=== PATIENT | female | born 1945 | race Caucasian/White ===

== ENCOUNTER 2017-09-13 23:36 | Emergency (ER) | payer MEDICARE, OTHER ==
[~2017-09-13] VITALS: Ht 157.5 cm; Wt 70.3 kg
--- OUTSIDE RECORDS SUMMARY | ~2017-09-13 | XMS | Clinical Summary ---
Demographics + + + | Address | [address] | | | [place] [address] | + + + | Home Phone | | + + + | Preferred Language | Unknown | + + + | Marital Status | Single | + + + | Christian Affiliation | NON | + + + | Race | White | + + + | Ethnic Group | Not or | + + + Author + + + | Author | NON REVENUE LOCATIONS | + + + | Organization | NON REVENUE LOCATIONS | + + + | Address | Unknown | + + + | Phone | Unavailable | + + + Support +------+ +---------+ + | Name | Relationship | Address | Phone | +------+ +---------+ + ECON | Unknown | | +------+ +---------+ + Care Team Providers + +------+ + | Care Economics Consultant Name | Role | Phone | + +------+ + PP | Unavailable | + +------+ + Source Comments JC is fully live on both [facility] and [facility] Allergies Not on File Current Medications Not on file Active Problems Not on file Social History + +-------+ +--------+------+ | Tobacco Use | Types | Packs/Day | Years | Date | | | | | Used | | + +-------+ +--------+------+ | Never Assessed | | | | | + +-------+ +--------+------+ + + + | Sex Assigned at | Date Recorded | | | | + + + | Not on file | | + + + Plan of Treatment + + + + + | Health Maintenance | Due Date | Last Done | Comments | + + + + + | INFLUENZA VACCINE | | | | | (FLU SHOT) | 7 | | | + + + + + Results Not on filefrom Last 3 Months"
--- OUTSIDE RECORDS SUMMARY | ~2017-09-13 | XMS | Clinical Summary ---
Demographics + + + | Address | [address] | | | [place] [address] | + + + | Home Phone | | + + + | Preferred Language | Unknown | + + + | Marital Status | Single | + + + | Scientologist Affiliation | NON | + + + [...] Team Providers + +------+ + | Care Sat Math Tutor Name | Role | Phone | + +------+ + PP | Unavailable | + +------+ + Source Comments JC is fully live on both [facility] and [facility] InPatient.[facility] Allergies Not on File Current [...]
[~2017-09-13 23:36] MED LIST: ADVAIR 500-501 EACH IH; AMBIEN5 MG PO; CARDIZEM LA240 MG PO; CYCLOBENZAPRINE10 MG PO; DAPSONE25 MG PO; LEVOXYL125 MCG PO; MONTELUKAST SOD10 MG PO; NEXIUM20 MG PO; NORCO 5-325 TA1 EACH PO; REGLAN10 MG PO
[2017-09-13] MEDS ORDERED: QVAR8.7 G1 (23:44)
[2017-09-14] MEDS ORDERED: FAMCICLOVIR500 MG PO (01:18)
[2017-09-14] MEDS ORDERED: NORCO 5-325 TA1 EACH PO (01:18)
== END 2017-09-14 01:47 | disposition home or self-care (01) ==
LOC: ED 23:36
DX: B02.9 Zoster without complications (principal); E03.9 Hypothyroidism, unspecified; Z98.890 Other specified postprocedural states; Z88.2 Allergy status to sulfonamides; Z88.6 Allergy status to analgesic agent; Z79.899 Other long term (current) drug therapy
CPT/HCPCS: 99283

== ENCOUNTER 2021-05-10 12:50 | Day surgery (SDC) | payer MEDICARE, OTHER ==
[~2021-05-10] VITALS: Ht 154.9 cm; Wt 67.3 kg
--- NOTE | ~2021-05-10 | OR ---
[facility] [address] [place], [place] [address] Draft DATE OF OPERATION: 05/10/2021 SURGEON: Opal Keller MD PREOPERATIVE DIAGNOSES: 1. 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 Cui in [place], [place]). 2. Self described gluten sensitivity. 3. History of Schatzki's ring and hiatal hernia. POSTOPERATIVE DIAGNOSES: 1. Minimal if any Hylton's esophagus; shallow Schatzki's ring and hiatal hernia. 2. Multiple gastric polyps. PROCEDURE: Esophagogastroduodenoscopy with biopsy. ANESTHESIA: Intravenous sedation, fentanyl 100 mcg and Versed 3 mg. 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 Rom Argueta in [place]. She underwent upper endoscopy by Dr. Cui in 2018, at which time she was said to have Hylton's esophagus and a small Schatzki's ring and multiple gastric polyps. She is referred for surveillance regarding the Hylton's esophagus. She is currently having no dysphagia, hematemesis or other symptoms related to the GI tract. She is on esomeprazole (Nexium) and symptoms are well controlled. She understands the risks of bleeding, infection, perforation related to upper endoscopy and wished to proceed. FINDINGS: Distal esophagus showed minimal if any Hylton's esophagus. There was a low-grade Schatzki's ring. There definitely was a hiatal hernia. She had multiple fundic gland type polyps. Duodenum appeared normal. CLOtest was negative 15 minutes post procedure. PROCEDURE IN DETAIL: The patient was brought to the endoscopy suite and given topical lidocaine hypopharyngeal anesthesia and placed in lateral decubitus position left side down. She was given intravenous sedation to the point of slurred speech and nystagmus with full cardiopulmonary monitoring. PATIENT NAME: MARIA DOLORES ROMANO OPERATIVE REPORT DATE OF : 47 REPORT #: [id number] PHYSICIAN: OPAL KELLER MD PCP: ROM ARGUETA MD REPORT IS CONFIDENTIAL AND NOT TO BE RELEASED WITHOUT AUTHORIZATION [facility] [address], [place] [address] Draft The Olympus video upper endoscope was passed in the hypopharynx. The vocal cords appeared normal, scope was easily passed in the esophagus throughout its length, it looked reasonably normal except in the distal portion where there was a minimal Schatzki's ring. There was a lack of finding of Hylton's epithelium so far as I could see. The scope was passed to the stomach, which was insufflated with air. Rugal folds were normal, though she had numerous small and large fundic gland polyps. The antrum was reasonably normal. Pylorus was normal. Scope was passed through into the duodenum, which was normal. Biopsies were taken of the mid and proximal duodenum. The scope was withdrawn. A biopsy was then taken of the antrum for both ANA and pathologic testing. Precast Worker polyp was excised and passed for pathology. The scope was withdrawn. Retroflexed view showed a hiatal hernia. The scope was straightened and withdrawn and careful inspection to the GE junction and the transition cell was somewhat dubious in my opinion for Hylton's epithelium proper. Biopsies were taken distal to the Schatzki's ring and what may or may not really be stomach versus esophagus. The scope was then withdrawn and there were no other findings of concern. The patient was taken to the recovery room in good condition having suffered no complication. CONCLUDING DIAGNOSIS: Minimal if any Hylton's epithelium at this time. PLAN: Recommend continued use of Nexium. Consideration for surveillance upper endoscopy. If Hylton's is affirmed on upper endoscopy. MD BRUNA Mckeon/FREDISL /[id number] cc: Rom Argueta MD Copies: ROM ARGUETA MD ~ PATIENT NAME: MARIA DOLORES ROMANO OPERATIVE REPORT DATE OF : 47 REPORT #: [id number] PHYSICIAN: OPAL KELLER MD PCP: ROM ARGUETA MD REPORT IS CONFIDENTIAL AND NOT TO BE RELEASED WITHOUT AUTHORIZATION
[~2021-05-10 12:50] MED LIST changes: +FAMCICLOVIR500 MG PO; +QVAR8.7 G1
[2021-05-10] MEDS ORDERED: CETIRIZINE HCL10 MG PO (13:21)
[2021-05-10] MEDS ORDERED: LOW DOSE ASPIRI81 MG PO (13:21)
--- NOTE | 2021-05-10 14:59 | NUR ---
05/10/21 1459 Anastasiia Gonzalez 1855-PATIENT ARRIVED TO PACU ON 2L NC RR EVEN AWAKE DENIES PAIN OR NAUSEA. PATIENT TALKING. ABDOMEN SOFT. IVF INFUSING. HOB ELEVATED.
--- NOTE | 2021-05-12 15:50 | PATH ---
[facility] [address], [place] [address] Signed SPECIMEN(S): A DUODENAL BIOPSY SPECIMEN(S): B ANTRUM/PYLORUS BIOPSY SPECIMEN(S): C STOMACH POLYP SPECIMEN(S): D LOWER ESOPHAGUS BIOPSY SPECIMEN SOURCE: A. DUODENAL BIOPSY B. ANTRUM/PYLORUS BIOPSY C. STOMACH POLYP D. LOWER ESOPHAGUS BIOPSY CLINICAL HISTORY: EGD. GERD, history of Hylton's esophagus, history of gastric polyp. Postop: Hiatal hernia, gastric polyps, minimal Hylton's esophagus. MICROSCOPIC DESCRIPTION: Histologic sections of all submitted blocks are examined by light microscopy. These findings, together with the gross examination, support the pathologic diagnosis. FINAL PATHOLOGIC DIAGNOSIS: A. Duodenum, biopsies: - Reactive duodenal mucosa, negative for significantly increased intraepithelial lymphocytosis and villous blunting. B. Antrum/pylorus, biopsy: - Minimal chronic inactive gastritis with vascular congestion. - Negative for intestinal metaplasia. - Negative for Helicobacter pylori organisms on routine stain. C. Stomach polyp, polypectomy: - Early hyperplastic polyp. - Negative for dysplasia. D. Lower esophagus, biopsy: - Fragments of reactive squamocolumnar mucosa with increased chronic inflammation, including intraepithelial eosinophils; see comment. - Negative for intestinal metaplasia and dysplasia. COMMENT: Histologic sections of lower esophagus show areas with increased intraepithelial eosinophils (up to 20 eosinophils per high-power field). The differential diagnosis includes severe gastroesophageal reflux disease and eosinophilic esophagitis. The former is favored. Please correlate with endoscopic impression. PATIENT NAME: MARIA DOLORES ROMANO PATHOLOGY DATE OF : 47 REPORT #: [id number] PHYSICIAN: ANABEL DENNIS PCP: ROM VALDERRAMA MD REPORT IS CONFIDENTIAL AND NOT TO BE RELEASED WITHOUT AUTHORIZATION [facility] [address], [place] [address] Signed DDF:mfr:C2NR GROSS DESCRIPTION: Four specimens are received in four containers, labeled "MB." A. The specimen, labeled "MB," and designated on the requisition "duodenum," is received in formalin and consists of two ogode soft tissue fragments that measure 0.3 cm in greatest dimension. The specimen is entirely submitted in cassette (A1). B. The specimen, labeled "MB," and designated on the requisition "antrum/pylorus," is received in formalin and consists of one goode soft tissue fragment that measures 0.2 cm in greatest dimension. The specimen is entirely submitted in cassette (B1). C. The specimen, labeled "MB," and designated on the requisition "stomach polyp," is received in formalin and consists of two goode soft tissue fragments that measure 0.2-0.3 cm in greatest dimension. The specimen is entirely submitted in cassette (C1). D. The specimen, labeled "MB," and designated on the requisition "lower esophagus," is received in formalin and consists of four goode soft tissue fragments that measure 0.2-0.4 cm in greatest dimension. The specimen is entirely submitted in cassette (D1). AT (under the direct supervision of a pathologist) The Gross Description was prepared using a voice recognition system. The report was reviewed for accuracy; however, sound-alike word errors, addition and/or deletions may occur. If there is any question about this report, please contact Client Services. PERFORMING LABORATORY: The technical component was performed by [facility], [address] [place] [id number] (Assembler Faucets: Carmelita Garnica MD; CLIA# [id number]). The professional interpretation was performed by [facility], [facility], [address] [place] [address]. Diagnostician: Howard Hermosillo DO Pathologist Electronically Signed 05/12/2021 Copies: ~ PATIENT NAME: MARIA DOLORES ROMANO PATHOLOGY DATE OF : 47 REPORT #: [id number] PHYSICIAN: [facility] PCP: ROM VALDERRAMA MD REPORT IS CONFIDENTIAL AND NOT TO BE RELEASED WITHOUT AUTHORIZATION
== END 2021-05-10 15:38 | disposition home or self-care (01) ==
LOC: DS 12:50 → OPS 12:50 → DS 14:00 → OPS 14:00
PROVIDERS: ATTEND Surgery
PROC: 0DB68ZX Excision of Stomach, Via Natural or Artificial Opening Endoscopic, Diagnostic (ICD-10-PCS; 2021-05-10)
PROC: 0DB48ZX Excision of Esophagogastric Junction, Via Natural or Artificial Opening Endoscopic, Diagnostic (ICD-10-PCS; principal; 2021-05-10 14:00)
DX: K22.70 Barrett's esophagus without dysplasia (principal); K31.7 Polyp of stomach and duodenum; K29.50 Unspecified chronic gastritis without bleeding; K21.00 Gastro-esophageal reflux disease with esophagitis, without bleeding; K22.2 Esophageal obstruction; K44.9 Diaphragmatic hernia without obstruction or gangrene; K90.41 Non-celiac gluten sensitivity; J45.909 Unspecified asthma, uncomplicated; Z88.6 Allergy status to analgesic agent; Z88.2 Allergy status to sulfonamides
CPT/HCPCS: 99153; G0500; J2250; J3010; J7121

== ENCOUNTER 2022-04-14 11:41 | Emergency (ER) | payer OTHER, MEDICARE ==
[~2022-04-14] VITALS: Ht 154.9 cm; Wt 65.4 kg
[~2022-04-14 11:41] MED LIST changes: +CETIRIZINE HCL10 MG PO; +LOW DOSE ASPIRI81 MG PO
[2022-04-14] MEDS ORDERED: HYDROCODON-ACE1 EA10 PO (13:24)
== END 2022-04-14 14:30 | disposition home or self-care (01) ==
LOC: ED 11:41
DX: S52.021A Displaced fracture of olecranon process without intraarticular extension of right ulna, initial encounter for closed fracture (principal); S22.32XA Fracture of one rib, left side, initial encounter for closed fracture; E03.9 Hypothyroidism, unspecified; Z88.8 Allergy status to other drugs, medicaments and biological substances; Z88.2 Allergy status to sulfonamides; Z79.899 Other long term (current) drug therapy; Z79.82 Long term (current) use of aspirin; W01.0XXA Fall on same level from slipping, tripping and stumbling without subsequent striking against object, initial encounter
CPT/HCPCS: 29105; 71101; 73080; 99283-25

== ENCOUNTER 2022-05-02 02:34 | Inpatient (IN) | payer MEDICARE, OTHER ==
[~2022-05-02] VITALS: Ht 154.9 cm; Wt 64.8 kg
[~2022-05-02 02:34] MED LIST changes: -ADVAIR 500-501 EACH IH; +ADVAIR 500-501 EACH INH; +HYDROCODON-ACE1 EA10 PO
--- OUTSIDE RECORDS SUMMARY | 2022-05-02 02:36 | XMS ---
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 CARE PROVIDERS There are no care providers on record at this time. Cruz has no Care Guidelines for this patient. Violet VISIT COUNT (12 MO.) 1 [facility] NOTE: Visits indicate total known visits. ED/UCC VISIT TRACKING (12 MO.) 05/02/2022 02:[address] [facility] [place] TYPE: Emergency COMPLAINT: - CONSTIPATION, NAUSEA 04/15/2022 20:53 [facility]GEL TYPE: Emergency DIAGNOSES: - Displaced fracture of olecranon process without intraarticular extension of right ulna, subsequent encounter for closed fracture with routine healing - Emesis - Nausea with vomiting, unspecified - Contusion of unspecified eyelid and periocular area, initial encounter - Fracture of one rib, left side, subsequent encounter for fracture with routine healing - Adverse effect of unspecified drugs, medicaments and biological substances, initial encounter - vomiting 04/14/2022 11:43 [facility] TYPE: Emergency COMPLAINT: - MULTI INJ DIAGNOSES: - Displaced fracture of olecranon process without intraarticular extension of right ulna, initial encounter for closed fracture - Hypothyroidism, unspecified - Fall on same level from slipping, tripping and stumbling without subsequent striking against object, initial encounter - Other senior living (current) drug therapy - jail (current) use of aspirin - Allergy status to sulfonamides - Fracture of one rib, left side, initial encounter for closed fracture - Allergy status to other drugs, medicaments and biological substances - Pain in right elbow INPATIENT VISIT TRACKING (12 MO.) No inpatient visits to display in this time frame [email or web address]
[2022-05-02] MEDS ORDERED: HYDROCODON-ACE1 EA10 PO (07:54)
[2022-05-02] MEDS ORDERED: DIAZEPAM10 MG PO (07:54)
[2022-05-02] MEDS ORDERED: ONDANSETRON ODT4 MG PO (07:55)
[2022-05-02] MEDS ORDERED: METOCLOPRAMIDE H5 MG PO (07:57)
[2022-05-02] MEDS ORDERED: CLOBETASOL PROP15 GM TOP (07:58)
[2022-05-02] MEDS ORDERED: ATORVASTATIN CA10 MG PO (07:58)
[2022-05-02] MEDS ORDERED: VENTOLIN HFA18 GM INH (08:00)
[2022-05-02] MEDS ORDERED: QVAR REDIHALE10.6 G1 INH (11:56)
[2022-05-02] MEDS ORDERED: IRON325 M1 PO (12:14)
[2022-05-02] MEDS ORDERED: MELATONIN5 M2 PO (12:14)
[2022-05-02] MEDS ORDERED: VITAMIN C500 M1 PO (12:14)
--- NOTE | 2022-05-02 22:04 | EKG ---
[facility] [address] [facility] [place] [address] Signed Normal sinus rhythm Right bundle branch block Abnormal ECG No previous ECGs available Confirmed by SUNDEEP MARTIN MD ([id number]) on 05/02/2022 10:04:19 PM Electronically Signed By: SUNDEEP MARTIN MD 05/02/222203 PATIENT NAME: MARIA DOLORES ROMANO Electrocardiogram DATE OF : 47 PHYSICIAN: SUNDEEP MARTIN MD REPORT #: [id number] REPORT IS CONFIDENTIAL AND NOT TO BE RELEASED WITHOUT AUTHORIZATION
--- NOTE | 2022-05-03 09:15 | HP ---
[facility] [address] [place], [place] [address] Signed ADMISSION DATE: 05/02/2022 REASON FOR ADMISSION: Fecal impaction impending stercoral ulceration. HISTORY: This 76-year-old white woman suffered a ground level fall approximately two weeks ago, and was treated in [place], [place] for right rib fractures and a right elbow dislocation requiring operative intervention. She has had minimal activity and did have opiate medication postoperatively. She presented to the emergency room last night, and was evaluated by Dr. Haskins and found to have left lower abdominal pain, distention, and no bowel movement in an indeterminate number of days. A CT scan was performed which showed fecal impaction as well as a stool ball in the rectosigmoid area that was concerning for stercoral ulceration and inflammation. She had repeated vomiting and is known to have underlying reflux. Additionally, she is known to have underlying gluten sensitivity for which she avoids gluten generally speaking. Her other issues include hypothyroidism, asthma, hypertension, reflux and occasional irregular heartbeat. CURRENT MEDICATIONS: Include: 1. Metoclopramide. 2. Montelukast. 3. Esomeprazole. 4. Fluticasone. 5. Cetirizine. 6. Aspirin. 7. Dapsone. 8. Diltiazem. 9. Synthroid. 10. Recent use of Vicodin. Her evaluation in the emergency room showed an elevated white count of 15.6, normal electrolytes and liver enzymes. The CT scan was reviewed by me and interpreted by Dr. Waddell showing moderate stool in the left side of the colon with wall thickening and possible stool ball in the rectosigmoid and some degree of stercoral obstruction. REVIEW OF SYSTEMS: She denies any shortness of breath or chest pain. Has no nausea or vomiting currently. She does not really have rectal or abdominal pain currently. Electronically Signed By: OPAL KELLER MD 05/03/22 0915 PATIENT NAME: MARIA DOLORES ROMANO HISTORY AND PHYSICAL DATE OF : 47 REPORT #: [id number] PHYSICIAN: OPAL KELLER MD PCP: ROM VALDERRAMA MD REPORT IS CONFIDENTIAL AND NOT TO BE RELEASED WITHOUT AUTHORIZATION [facility] [address] [place], [place] [address] Signed PHYSICAL EXAMINATION: GENERAL: A pleasant white woman, who does not look systemically toxic in the slightest at this time. HEENT: Mucous membranes are moist. Trachea is midline. CHEST: Shows normal respiratory excursion. Pulses regular. ABDOMEN: Somewhat obese but nondistended and not particularly tender, lateral decubitus position left side down. Anorectal examination shows no stool in the rectal vault but somewhat soft and doughy rectosigmoid indicative of some amount of fecal impaction. ASSESSMENT: I reviewed the CT scan, interpretations, labs and so forth in detail. She did have a soapsuds enema in the emergency room, which was ineffective in clearing any real stool. Manual disimpaction at this time would likely be ineffective as she has reasonably good relaxation at the bedside and stool was not palpable. We will attempt to begin clearance of the colon with additional enema treatment as well as oral agents to include mineral oil and cathartic agents that may be beneficial in moving the stool along. I initially started cefoxitin antibiotic on the basis of the verbal report I have from Dr. Haskins and I think it was reasonable, but it is not likely to be needed going forward and we will discontinue that for the time being. Her white count was elevated, it is acknowledged. I discussed with the patient the probability that this will be able to be cleared out without operative intervention, though there is always that possibility. Stercoral ulceration and perforation is surgical emergency and avoidance of that progression of this problem would be most important if possible. MD BRUNA Mckeon/FREDISL /[id number] cc: Dr. Haskins Electronically Signed By: OPAL KELLER MD 05/03/22 0915 PATIENT NAME: MARIA DOLORES ROMANO HISTORY AND PHYSICAL DATE OF : 47 REPORT #: [id number] PHYSICIAN: OPAL KELLER MD PCP: ROM VALDERRAMA MD REPORT IS CONFIDENTIAL AND NOT TO BE RELEASED WITHOUT AUTHORIZATION [facility] [address] [place], [place] [address] Signed Copies: ~ Electronically Signed By: OPAL KELLER MD 05/03/22 0915 PATIENT NAME: MARIA DOLORES ROMANO HISTORY AND PHYSICAL DATE OF : 47 REPORT #: [id number] PHYSICIAN: OPAL KELLER MD PCP: ROM VALDERRAMA MD REPORT IS CONFIDENTIAL AND NOT TO BE RELEASED WITHOUT AUTHORIZATION
[2022-05-03] MEDS ORDERED: ACETAMINOPHEN500 MG PO (10:09)
[2022-05-03] MEDS ORDERED: MIRALAX17 GM PO (10:10)
[2022-05-03] MEDS ORDERED: METAMUCIL FIBE3.4 GM PO (10:11)
--- NOTE | 2022-05-03 14:42 | DS ---
[facility] [address] [place], [place] [address] Signed ADMISSION DATE: 05/02/2022 DISCHARGE DATE: 05/03/2022 REASON FOR ADMISSION: This 76-year-old white woman recently ( 2 WEEKS AGO) suffered a fall including injuries of right rib fractures, facial contusion and right elbow dislocation. She was managed in [place], [place]. She presented to the emergency room with severe left lower abdominal pain, evaluated by Dr. Haskins with findings on CT scan of stercoral ulceration and inflammation. She was admitted on that basis. PERTINENT PHYSICAL EXAMINATION: GENERAL: Showed an elderly white woman with facial bruising and a right elbow sling. HEENT: Mucous membranes were moist. ABDOMEN: Obese, but nondistended and only mildly tender. Anorectal examination showed no stool in the rectal vault, but soft and doughy rectosigmoid indicative of fecal impaction above the rectosigmoid. CT scan showed inflammatory changes in the pericolonic area with considerable stool impaction and fecaloma consistent with stercoral colitis and hazard for stercoral perforation. Her wbc count was elevated to greater than 15, 000, concordant to significant inflammation of the sigmoid at the site of stool ball and proximal stool distention and concerning for stercoral inflammation with hazard of progression. HOSPITAL COURSE: She was given intravenous antibiotic cefoxitin on the basis of her high hazard for stercoral perforation. Initial management in the emergency room was with soapsuds enema, which was completely ineffective. ON that basis she was admitted and given intravenous fluid resucitation, pain management, antibiotic coverage and additional interventions so as to avoid progression to ischemic perforation of the colon. Digital rectal exam confirmed that digital disimpactio would not be possible as the inspissated stool was in the distal sigmoid...She was begun on a Miralax regimen after additional enemas were administered. With caution, it was noted to be successful with egress of a fair amount of stool ultimately and a followup KUB showed no evidence of persistent fecal impaction or other problem. She is discharged home with a regimen to include MiraLAX and fiber supplement, Metamucil on a daily basis. Her risk factors for her impaction and stercoral changes included limited ambulation, Electronically Signed By: OPAL KELLER MD 05/03/22 1442 PATIENT NAME: MARIA DOLORES ROMANO DISCHARGE SUMMARY DATE OF : 47 REPORT #: [id number] PHYSICIAN: OPAL KELLER MD PCP: ROM VALDERRAMA MD REPORT IS CONFIDENTIAL AND NOT TO BE RELEASED WITHOUT AUTHORIZATION [facility] [address] [place], [place] [address] Signed opiate use recently related to her fall, oral iron medication and a notable dislike for fruits and vegetables. I have thus recommend she maintain miralax and metamucil fiber supplement on a daily basis. have also recommended she have colonoscopy as it has been quite sometime since her last one and her hematocrit is 27. She is advised that a CT scan is not an effective screen for colonic pathology. She notes that she has "herpetiform dermatitis" as diagnosed by her bilingual sales representative, Dr. Sandra Rosen; on that basis, she takes dapsone and supplement her diet with iron on that basis. She is generally opposed to colonscopy due to the prep but I recommend it and she will likely agree to it. Considering she effectively had colonic obstruction and anemia, I emphasized to her its importance. FOLLOWUP PLAN: She will return to see me in approximately six weeks. If she has other problems in the meantime, she will let me know. DISCHARGE DIAGNOSES: 1. Stercoral focal colitis of sigmoid related to fecaloma and stool impaction. 2. Recent ground level fall with rib fractures, facial contusion and right arm dislocation. 3. General fraility. 4. Reactive airways disease. 5. Underlying presumed gluten sensitivity, uncertain regarding diagnosis. DISCHARGE MEDICATIONS: 1. Will include Tylenol 1000 mg p.o. Q 6 hours p.r.n. pain #60 MiraLAX 17 g powder daily. 2. Metamucil 3.4 g p.o. daily. She will continue with usual medications: Include diltiazem LA 240 mg p.o. daily, Synthroid 125 mcg p.o. daily. 3. Dapsone 25 mg p.o. b.i.d. 4. Esomeprazole 20 mg p.o. b.i.d. 5. Advair Diskus one inhalation daily. 6. Montelukast 10 mg p.o. daily. 7. Cetirizine 10 mg p.o. daily. 8. Aspirin 81 mg low dose daily. 9. Valium 10 mg as needed at bed for leg cramps. 10. Zofran 4 mg p.o. as needed for nausea. 11. Reglan 5 mg p.o. with meals and after meals as needed. 12. Clobetasol propionate topically b.i.d. as needed for rash. 13. Atorvastatin 10 mg p.o. daily. Electronically Signed By: OPAL KELLER MD 05/03/22 1442 PATIENT NAME: MARIA DOLORES ROMANO DISCHARGE SUMMARY DATE OF : 47 REPORT #: [id number] PHYSICIAN: OPAL KELLER MD PCP: ROM VALDERRAMA MD REPORT IS CONFIDENTIAL AND NOT TO BE RELEASED WITHOUT AUTHORIZATION [facility] [address] [place] [address] Signed 14. Albuterol inhaler 1-2 puffs q.4-6 hours p.r.n. pain. 15. Beclomethasone dipropionate two puffs b.i.d. as needed. 16. Vitamin C 500 mg p.o. daily. 17. Ferrous iron 325 mg p.o. daily. 18. Melatonin 5 mg at bedtime as needed for sleep. I have recommended she discontinue her Vicodin at this point. MD BRUNA Mckeon/FREDISL /[id number] cc: MD Sandra Morelos MD Copies: ROM VALDERRAMA MD, EILEEN MD ~ Electronically Signed By: OPAL KELLER MD 05/03/22 1442 PATIENT NAME: MARIA DOLORES ROMANO DISCHARGE SUMMARY DATE OF : 47 REPORT #: [id number] PHYSICIAN: OPAL KELLER MD PCP: ROM VALDERRAMA MD REPORT IS CONFIDENTIAL AND NOT TO BE RELEASED WITHOUT AUTHORIZATION
== END 2022-05-03 11:07 | disposition home or self-care (01) | DRG 392 ==
LOC: ED 02:34 → MS 04:51
PROVIDERS: ADMIT Surgery; ATTEND Surgery
DX: K52.89 Other specified noninfective gastroenteritis and colitis (principal); S22.31XA Fracture of one rib, right side, initial encounter for closed fracture; S00.83XA Contusion of other part of head, initial encounter; S53.104A Unspecified dislocation of right ulnohumeral joint, initial encounter; K56.41 Fecal impaction; W18.30XA Fall on same level, unspecified, initial encounter; R54 Age-related physical debility; J45.909 Unspecified asthma, uncomplicated; Z20.822 Contact with and (suspected) exposure to COVID-19; D64.9 Anemia, unspecified; E03.9 Hypothyroidism, unspecified; I10 Essential (primary) hypertension; K21.9 Gastro-esophageal reflux disease without esophagitis; Z98.890 Other specified postprocedural states; Z88.2 Allergy status to sulfonamides; Z88.8 Allergy status to other drugs, medicaments and biological substances; Z79.899 Other long term (current) drug therapy; Z79.891 Long term (current) use of opiate analgesic; Z79.52 Long term (current) use of systemic steroids; Z91.018 Allergy to other foods; Z79.82 Long term (current) use of aspirin
CPT/HCPCS: 36415; 74018; 74177; 80053; 81001; 83690; 84484; 85025; 87502; 93005; 93010; 96375; 99285-25; A9270; J0694; J1885; J2405; J7121; Q9967; U0003

== ENCOUNTER 2023-03-07 00:11 | Emergency (ER) | payer MEDICARE, OTHER ==
[~2023-03-07] VITALS: Ht 154.9 cm; Wt 66.0 kg
--- OUTSIDE RECORDS SUMMARY | ~2023-03-07 | XMS | Continuity of Care Document ---
Demographics + + + | Address | [address] | | | [place] [address] | + + + | Preferred Language | Unknown | + + + | Marital Status | | + + + | Druze Affiliation | Unknown | + + + | Race | White | + + + | Ethnic Group | Not or | + + + Author + + + | Author | [facility] | + + + | Organization | [facility] | + + + | Address | [address] | | | [place] [address] | + + + | Phone | | + + + Care Team Providers + + + + | Care Tipple Repairer Name | Role | Phone | + + + + Unavailable | Unavailable | + + + + Unavailable | Unavailable | + + + + Allergies and Intolerances + + + + + | date | description | facility | type | + + + + + | (no date) | Urticaria | [facility] | | + + + + + | (no date) | Mild | [facility] ([facility] | | + + + + + | (no date) | Rash | [facility] (unknown[facility] | | + + + + + | (no date) | Naproxen | [facility] (unknown[facility] | | + + + + + | (no date) | Naproxen | [facility] (unknown[facility] | | + + + + + | (no date) | naproxen | [facility] ([facility] | | + + + + + Encounters No information. Functional Status No information. Immunizations + + + + | date | description | facility | + + + + | 2022-05-03 00:00 | No vaccine administered [facility] | + + + + Medications + + + + | date | description | facility | + + + + | 2022-05-03 00:00 | CETIRIZINE HCL | [facility] | + + + + | 2022-05-03 00:00 | cetirizine hydrochloride | [facility] | | | 10 MG Oral Tablet | | + + + + | 2022-05-03 00:00 | ONDANSETRON | [facility] | + + + + | 2022-05-03 00:00 | ondansetron 4 MG | [facility] | | | Disintegrating Oral Tablet | | + + + + | 2022-05-03 00:00 | DAPSONE | [facility] | + + + + | 2022-05-03 00:00 | dapsone 25 MG Oral Tablet | [facility] | + + + + | 2022-05-03 00:00 | DIAZEPAM | [facility] | + + + + | 2022-05-03 00:00 | diazepam 10 MG Oral Tablet | [facility] | | | | | + + + + | 2017-09-14 00:00 | FAMCICLOVIR | [facility] | + + + + | 2017-09-14 00:00 | famciclovir 500 MG Oral | [facility] | | | Tablet | | + + + + | 2022-05-03 00:00 | ACETAMINOPHEN | [facility] | + + + + | 2022-05-03 00:00 | acetaminophen 500 MG Oral | [facility] | | | Tablet | | + + + + | 2022-05-03 00:00 | Beclomethasone | [facility] | | | Dipropionate | | + + + + | 2022-05-03 00:00 | Breath-Actuated 120 ACTUAT | [facility] | | | beclomethasone | | | | dipropionate 0.08 | | + + + + | 2022-05-03 00:00 | MONTELUKAST SODIUM | [facility] | + + + + | 2022-05-03 00:00 | montelukast 10 MG Oral | [facility] | | | Tablet | | + + + + | 2022-05-03 00:00 | MELATONIN | [facility] | + + + + | 2022-05-03 00:00 | melatonin 5 MG Oral Tablet | [facility] | | | | | + + + + | 2022-05-03 00:00 | ASCORBIC ACID | [facility] | + + + + | 2022-05-03 00:00 | ascorbic acid 500 MG Oral | [facility] | | | Tablet | | + + + + | 2022-05-03 00:00 | FERROUS SULFATE | [facility] | + + + + | 2022-05-03 00:00 | ferrous sulfate 325 MG | [facility] | | | Oral Tablet | | + + + + | 2022-05-03 00:00 | METOCLOPRAMIDE HCL | [facility] | + + + + | 2022-05-03 00:00 | metoclopramide 5 MG Oral | [facility] | | | Tablet | | + + + + | 2022-05-03 00:00 | ESOMEPRAZOLE MAG | [facility] | | | TRIHYDRATE | | + + + + | 2022-05-03 00:00 | esomeprazole 20 MG Delayed | [facility] | | | Release Oral Capsule | | | | [Nexium] | | + + + + | 2022-05-03 00:00 | ATORVASTATIN CALCIUM | [facility] | + + + + | 2022-05-03 00:00 | atorvastatin 10 MG Oral | [facility] | | | Tablet | | + + + + | 2022-05-03 00:00 | ASPIRIN | [facility] | + + + + | 2022-05-03 00:00 | aspirin 81 MG Delayed | [facility] | | | Release Oral Tablet [Ariela | | | | Aspirin] | | + + + + | 2015-12-17 00:00 | CYCLOBENZAPRINE HCL | [facility] | + + + + | 2015-12-17 00:00 | cyclobenzaprine | [facility] | | | hydrochloride 10 MG Oral | | | | Tablet | | + + + + | 2022-05-03 00:00 | 24 HR diltiazem | [facility] | | | hydrochloride 240 MG | | | | Extended Release Oral T | | + + + + | 2022-05-03 00:00 | DILTIAZEM HCL | [facility] | + + + + | 2022-05-03 00:00 | ZOLPIDEM TARTRATE | [facility] | + + + + | 2022-05-03 00:00 | zolpidem tartrate 5 MG | [facility] | | | Oral Tablet [Ambien] | | + + + + | 2022-05-03 00:00 | HYDROCODONE | [facility] | | | BIT/ACETAMINOPHEN | | + + + + | 2022-05-03 00:00 | acetaminophen 325 MG / | [facility] | | | hydrocodone bitartrate 5 MG | | | | Oral Tabl | | + + + + | 2015-12-17 00:00 | HYDROCODONE | [facility] | | | BIT/ACETAMINOPHEN | | + + + + | 2017-09-14 00:00 | HYDROCODONE | [facility] | | | BIT/ACETAMINOPHEN | | + + + + | 2015-12-17 00:00 | acetaminophen 325 MG / | [facility] | | | hydrocodone bitartrate 5 MG | | | | Oral Tabl | | + + + + | 2017-09-14 00:00 | acetaminophen 325 MG / | [facility] | | | hydrocodone bitartrate 5 MG | | | | Oral Tabl | | + + + + | 2022-05-03 00:00 | ALBUTEROL SULFATE | [facility] | + + + + | 2022-05-03 00:00 | [id number] 200 ACTUAT | [facility] | | | albuterol 0.09 MG/ACTUAT | | | | Metered Dose I | | + + + + | 2022-05-03 00:00 | CLOBETASOL PROPIONATE | [facility] | + + + + | 2022-05-03 00:00 | clobetasol propionate 0.5 | [facility] | | | MG/ML Topical Cream | | + + + + | 2022-05-03 00:00 | POLYETHYLENE GLYCOL 3350 | [facility] | + + + + | 2022-05-03 00:00 | polyethylene glycol 3350 | [facility] | | | [address]676 MG Powder for Oral | | | | Solution [ | | + + + + | 2022-05-03 00:00 | PSYLLIUM HUSK/ASPARTAME | [facility] | + + + + | 2022-05-03 00:00 | psyllium 3400 MG Powder | [facility] | | | for Oral Suspension | | | | [Metamucil] | | + + + + | 2022-05-03 00:00 | 60 ACTUAT fluticasone | [facility] | | | propionate 0.5 MG/ACTUAT / | | | | salmeterol | | + + + + | 2022-05-03 00:00 | FLUTICASONE/SALMETEROL | [facility] | + + + + | 2022-05-03 00:00 | LEVOTHYROXINE SODIUM | [facility] | + + + + | 2022-05-03 00:00 | levothyroxine sodium 0.125 | [facility] | | | MG Oral Tablet [Levoxyl] | | + + + + Problems + + + + | date | description | facility | + + + + | 2015-12-17 00:00 | Back contusion | [facility] | + + + + | 2015-12-17 00:00 | Contusion of back | [facility] | + + + + | 2017-09-14 00:00 | Herpes zoster | [facility] | + + + + | 2022-04-14 00:00 | Left rib fracture | [facility] | + + + + | 2022-04-14 00:00 | Closed olecranon fracture | [facility] | + + + + | 2022-04-14 00:00 | Fracture of rib of left | [facility] | | | side | | + + + + | 2022-04-14 00:00 | Closed fracture of | [facility] | | | olecranon process of ulna | | + + + + | 2022-05-02 00:00 | Stercoral colitis | [facility] | + + + + | 2022-05-02 00:00 | Obstipation | [facility] | + + + + Procedures No information. Results/Labs +--------+--------+ + +---------+--------+ + | test | date | author | facility | value | unit | | | | | | | | | interpreta | | | | | | | | tion | +--------+--------+ + +---------+--------+ + + + | Result panel 1 | + + + + + + +---------+ + + | (unknown) | (no date) | (unknown) | [facility] (no | (units | (unknown) | | [facility] | | | | + + + + +---------+ + + + + | Result panel 2 | + + + + + + +---------+ + + | (unknown) | (no date) | (unknown) | [facility] | (no | (units | (unknown) | | [facility] | | | | + + + + +---------+ + + + + | Result panel 3 | + + + + + + +---------+ + + | (unknown) | (no date) | (unknown) | [facility] | (no | (units | (unknown) | | [facility] | | | | + + + + +---------+ + + + + | Result panel 4 | + + + + + + +---------+ + + | (unknown) | (no date) | (unknown) | [facility] | (no | (units | (unknown) | | [facility] | | | | + + + + +---------+ + + + + | Result panel 5 | + + + + + + +---------+ + + | (unknown) | (no date) | (unknown) | [facility] | (no | (units | (unknown) | | | [facility] | [facility] | [facility] | | | | + + + + +---------+ + + + + | Result panel 6 | + + + + + + +---------+ + + | (unknown) | (no date) | (unknown) | [facility] | (no | (units | (unknown) | | | [facility] | [facility] | [facility] | | | | + + + + +---------+ + + + + | Result panel 7 | + + + + + + +---------+ + + | (unknown) | (no date) | (unknown) | [facility] | (no | (units | (unknown) | | | [facility] | [facility] | [facility] | | | | + + + + +---------+ + + + + | Result panel 8 | + + + + + + +---------+ + + | (unknown) | (no date) | (unknown) | [facility] | (no | (units | (unknown) | | | [facility] | [facility] | | | | + + + + +---------+ + + + + | Result panel 9 | + + + + + + +---------+ + + | (unknown) | (no date) | (unknown) | [facility] | (no | (units | (unknown) | | | [facility] | [facility] | [facility] | | | | + + + + +---------+ + + + + | Result panel 10 | + + + + + + +---------+ + + | (unknown) | (no date) | (unknown) | [facility] | (no | (units | (unknown) | | | [facility] | | | | + + + + +---------+ + + + + | Result panel 11 | + + + + + + +---------+ + + | (unknown) | (no date) | (unknown) | [facility] | (no | (units | (unknown) | | | [facility] | [facility] | | | | + + + + +---------+ + + + + | Result panel 12 | + + + + + + +---------+ + + | (unknown) | (no date) | (unknown) | [facility] | (no | (units | (unknown) | | | [facility] | [facility] | | | | + + + + +---------+ + + + + | Result panel 13 | + + + + + + +---------+ + + | (unknown) | (no date) | (unknown) | [facility] | (no | (units | (unknown) | | | [facility] | [facility] | [facility] | | | | + + + + +---------+ + + + + | Result panel 14 | + + + + + + +---------+ + + | (unknown) | (no date) | (unknown) | [facility] | (no | (units | (unknown) | | | [facility] | [facility] | [facility] | | | | + + + + +---------+ + + + + | Result panel 15 | + + + + + + +---------+ + + | (unknown) | (no date) | (unknown) | [facility] | (no | (units | (unknown) | | | [facility] | [facility] | [facility] | | | | + + + + +---------+ + + + + | Result panel 16 | + + + + + + +---------+ + + | (unknown) | (no date) | (unknown) | [facility] | (no | (units | (unknown) | | | [facility] | [facility] | [facility] | | | | + + + + +---------+ + + + + | Result panel 17 | + + + + + + +---------+ + + | (unknown) | (no date) | (unknown) | [facility] | (no | (units | (unknown) | | | [facility] | [facility] | [facility] | | | | + + + + +---------+ + + + + | Result panel 18 | + + + + + + +---------+ + + | (unknown) | (no date) | (unknown) | [facility] | (no | (units | (unknown) | | | [facility] | [facility] | [facility] | | | | + + + + +---------+ + + + + | Result panel 19 | + + + + + + +---------+ + + | (unknown) | (no date) | (unknown) | [facility] | (no | (units | (unknown) | | | [facility] | [facility] | [facility] | | | | + + + + +---------+ + + + + | Result panel 20 | + + + + + + +---------+ + + | (unknown) | (no date) | (unknown) | [facility] | (no | (units | (unknown) | | | [facility] | [facility] | [facility] | | | | + + + + +---------+ + + + + | Result panel 21 | + + + + + + +---------+ + + | (unknown) | (no date) | (unknown) | [facility] | (no | (units | (unknown) | | | [facility] | [facility]) | | [facility] | | | | + + + + +---------+ + + + + | Result panel 22 | + + + + + + +---------+ + + | (unknown) | (no date) | (unknown) | [facility] | (no | (units | (unknown) | | | [facility] | [facility] | [facility] | | | | + + + + +---------+ + + + + | Result panel 23 | + + + + + + +---------+ + + | (unknown) | (no date) | (unknown) | [facility] | (no | (units | (unknown) | | | [facility] | [facility] | [facility] | | | | + + + + +---------+ + + + + | Result panel 24 | + + + + + + +---------+ + + | (unknown) | (no date) | (unknown) | [facility] | (no | (units | (unknown) | | | [facility] | [facility] | [facility] | | | | + + + + +---------+ + + + + | Result panel 25 | + + + + + + +---------+ + + | (unknown) | (no date) | (unknown) | [facility] | (no | (units | (unknown) | | | [facility] | [facility] | [facility] | | | | + + + + +---------+ + + + + | Result panel 26 | + + + + + + +---------+ + + | (unknown) | (no date) | (unknown) | [facility] | (no | (units | (unknown) | | | [facility] | [facility] | [facility] | | | | + + + + +---------+ + + + + | Result panel 27 | + + + + + + +---------+ + + | (unknown) | (no date) | (unknown) | [facility] | (no | (units | (unknown) | | | [facility] | [facility] | [facility] | | | | + + + + +---------+ + + + + | Result panel 28 | + + + + + + +---------+ + + | (unknown) | (no date) | (unknown) | [facility] | (no | (units | (unknown) | | | [facility] | [facility] | [facility] | | | | + + + + +---------+ + + + + | Result panel 29 | + + + + + + +---------+ + + | (unknown) | (no date) | (unknown) | [facility] | (no | (units | (unknown) | | | [facility] | [facility] | [facility] | | | | + + + + +---------+ + + + + | Result panel 30 | + + + + + + +---------+ + + | (unknown) | (no date) | (unknown) | [facility] | (no | (units | (unknown) | | | [facility] | [facility] | [facility] | | | | + + + + +---------+ + + + + | Result panel 31 | + + + + + + +---------+ + + | (unknown) | (no date) | (unknown) | [facility] | (no | (units | (unknown) | | | [facility] | [facility] | | | | + + + + +---------+ + + + + | Result panel 32 | + + + + + + +---------+ + + | (unknown) | (no date) | (unknown) | [facility] | (no | (units | (unknown) | | | [facility] | [facility] | | | | + + + + +---------+ + + + + | Result panel 33 | + + + + + + +---------+ + + | (unknown) | (no date) | (unknown) | [facility] | (no | (units | (unknown) | | | [facility] | [facility] | | | | + + + + +---------+ + + + + | Result panel 34 | + + + + + + +---------+ + + | (unknown) | (no date) | (unknown) | [facility] | (no | (units | (unknown) | | | [facility] | [facility] | [facility] | | | | + + + + +---------+ + + + + | Result panel 35 | + + + + + + +---------+ + + | (unknown) | (no date) | (unknown) | [facility] | (no | (units | (unknown) | | | [facility] | [facility] | [facility] | | | | + + + + +---------+ + + + + | Result panel 36 | + + + + + + +---------+ + + | (unknown) | (no date) | (unknown) | [facility] | (no | (units | (unknown) | | | [facility] | [facility] | | | | + + + + +---------+ + + + + | Result panel 37 | + + + + + + +---------+ + + | (unknown) | (no date) | (unknown) | [facility] | (no | (units | (unknown) | | | [facility] | [facility] | [facility] | | | | + + + + +---------+ + + + + | Result panel 38 | + + + + + + +---------+ + + | (unknown) | (no date) | (unknown) | [facility] | (no | (units | (unknown) | | | [facility] | [facility] | [facility] | | | | + + + + +---------+ + + + + | Result panel 39 | + + + + + + +---------+ + + | (unknown) | (no date) | (unknown) | [facility] | (no | (units | (unknown) | | | [facility] | [facility]) | [facility] | | | | + + + + +---------+ + + + + | Result panel 40 | + + + + + + +---------+ + + | (unknown) | (no date) | (unknown) | [facility] | (no | (units | (unknown) | | | [facility] | [facility] | [facility] | | | | + + + + +---------+ + + + + | Result panel 41 | + + + + + + +---------+ + + | (unknown) | (no date) | (unknown) | [facility] | (no | (units | (unknown) | | | [facility] | [facility] | [facility] | | | | + + + + +---------+ + + + + | Result panel 42 | + + + + + + +---------+ + + | (unknown) | (no date) | (unknown) | [facility] | (no | (units | (unknown) | | | [facility]) | [facility]) | [facility] | | | | + + + + +---------+ + + + + | Result panel 43 | + + + + + + +---------+ + + | (unknown) | (no date) | (unknown) | [facility] | (no | (units | (unknown) | | | [facility] | [facility]) | [facility] | | | | + + + + +---------+ + + + + | Result panel 44 | + + + + + + +---------+ + + | (unknown) | (no date) | (unknown) | [facility] | (no | (units | (unknown) | | | [facility]) | [facility]) | | [facility] | | | | + + + + +---------+ + + + + | Result panel 45 | + + + + + + +---------+ + + | (unknown) | (no date) | (unknown) | [facility] | (no | (units | (unknown) | | | [facility]) | [facility]) | | [facility] | | | | + + + + +---------+ + + + + | Result panel 46 | + + + + + + +---------+ + + | (unknown) | (no date) | (unknown) | [facility] | (no | (units | (unknown) | | | [facility] | [facility]) | [facility] | | | | + + + + +---------+ + + + + | Result panel 47 | + + + + + + +---------+ + + | (unknown) | (no date) | (unknown) | [facility] | (no | (units | (unknown) | | | | [facility] | [facility]) | [facility] | | | | + + + + +---------+ + + + + | Result panel 48 | + + + + + + +---------+ + + | (unknown) | (no date) | (unknown) | [facility] | (no | (units | (unknown) | | | [facility] | [facility]) | [facility] | | | | + + + + +---------+ + + + + | Result panel 49 | + + + + + + +---------+ + + | (unknown) | (no date) | (unknown) | [facility] | (no | (units | (unknown) | | | | [facility]) | [facility]) | | [facility] | | | | + + + + +---------+ + + + + | Result panel 50 | + + + + + + +---------+ + + | (unknown) | (no date) | (unknown) | [facility] | (no | (units | (unknown) | | | [facility]) | [facility]) | [facility] | | | | + + + + +---------+ + + + + | Result panel 51 | + + + + + + +---------+ + + | (unknown) | (no date) | (unknown) | [facility] | (no | (units | (unknown) | | | [facility] | [facility]) | [facility] | | | | + + + + +---------+ + + + + | Result panel 52 | + + + + + + +---------+ + + | (unknown) | (no date) | (unknown) | [facility] | (no | (units | (unknown) | | | [facility]) | [facility]) | [facility] | | | | + + + + +---------+ + + + + | Result panel 53 | + + + + + + +---------+ + + | (unknown) | (no date) | (unknown) | [facility] | (no | (units | (unknown) | | | [facility] | [facility]) | | [facility] | | | | + + + + +---------+ + + + + | Result panel 54 | + + + + + + +---------+ + + | (unknown) | (no date) | (unknown) | [facility] | (no | (units | (unknown) | | | [facility] | [facility]) | [facility] | | | | + + + + +---------+ + + + + | Result panel 55 | + + + + + + +---------+ + + | (unknown) | (no date) | (unknown) | [facility] | (no | (units | (unknown) | | | [facility] | [facility] | [facility] | | | | + + + + +---------+ + + + + | Result panel 56 | + + + + + + +---------+ + + | (unknown) | (no date) | (unknown) | [facility] | (no | (units | (unknown) | | | [facility] | [facility] | [facility] | | | | + + + + +---------+ + + + + | Result panel 57 | + + + + + + +---------+ + + | (unknown) | (no date) | (unknown) | [facility] | (no | (units | (unknown) | | | [facility] | [facility]) | [facility] | | | | + + + + +---------+ + + + + | Result panel 58 | + + + + + + +---------+ + + | (unknown) | (no date) | (unknown) | [facility] | (no | (units | (unknown) | | | [facility] | [facility]) | [facility] | | | | + + + + +---------+ + + + + | Result panel 59 | + + + + + + +---------+ + + | (unknown) | (no date) | (unknown) | [facility] | (no | (units | (unknown) | | | [facility] | [facility] | [facility] | | | | + + + + +---------+ + + + + | Result panel 60 | + + + + + + +---------+ + + | (unknown) | (no date) | (unknown) | [facility] | (no | (units | (unknown) | | | [facility] | [facility] | [facility] | | | | + + + + +---------+ + + + + | Result panel 61 | + + + + + + +---------+ + + | (unknown) | (no date) | (unknown) | [facility] | (no | (units | (unknown) | | | [facility] | [facility] | [facility] | | | | + + + + +---------+ + + + + | Result panel 62 | + + + + + + +---------+ + + | (unknown) | (no date) | (unknown) | [facility] | (no | (units | (unknown) | | [facility] | [facility] | [facility] | | | | + + + + +---------+ + + + + | Result panel 63 | + + + + + + +---------+ + + | (unknown) | (no date) | (unknown) | [facility] | (no | (units | (unknown) | | | [facility] | [facility] | [facility] | | | | + + + + +---------+ + + + + | Result panel 64 | + + + + + + +---------+ + + | (unknown) | (no date) | (unknown) | [facility] | (no | (units | (unknown) | [facility] | [facility] | | [facility] | | | | + + + + +---------+ + + + + | Result panel 65 | + + + + + + +---------+ + + | (unknown) | (no date) | (unknown) | [facility] | (no | (units | (unknown) | [facility] | [facility] | [facility] | | | | + + + + +---------+ + + + + | Result panel 66 | + + + + + + +---------+ + + | (unknown) | (no date) | (unknown) | [facility] | (no | (units | (unknown) | | | [facility] | [facility] | [facility] | | | | + + + + +---------+ + + + + | Result panel 67 | + + + + + + +---------+ + + | (unknown) | (no date) | (unknown) | [facility] | (no | (units | (unknown) | | | [facility] | [facility] | [facility] | | | | + + + + +---------+ + + + + | Result panel 68 | + + + + + + +---------+ + + | (unknown) | (no date) | (unknown) | [facility] | (no | (units | (unknown) | | | | | [facility] | value) | unknown) | | | | | | [facility] | | | | + + + + +---------+ + + + + | Result panel 69 | + + + + + + +---------+ + + | (unknown) | (no date) | (unknown) | [facility] | (no | (units | (unknown) | | | | | [facility] | value) | unknown) | | | | | [facility] | | | | + + + + +---------+ + + + + | Result panel 70 | + + + + + + +---------+ + + | (unknown) | (no date) | (unknown) | [facility] | (no | (units | (unknown) | | | | | [facility] | value) | unknown) | | | | | [facility] | | | | + + + + +---------+ + + + + | Result panel 71 | + + + + + + +---------+ + + | (unknown) | (no date) | (unknown) | [facility] | (no | (units | (unknown) | | | | | [facility] | value) | unknown) | | | | | [facility] | | | | + + + + +---------+ + + + + | Result panel 72 | + + + + + + +---------+ + + | (unknown) | (no date) | (unknown) | [facility] | (no | (units | (unknown) | | | | | [facility] | value) | unknown) | | | | | [facility] | | | | + + + + +---------+ + + + + | Result panel 73 | + + + + + + +---------+ + + | (unknown) | (no date) | (unknown) | [facility] | (no | (units | (unknown) | | | | | [facility] | value) | unknown) | | | | | [facility] | | | | + + + + +---------+ + + + + | Result panel 74 | + + + + + + +---------+ + + | (unknown) | (no date) | (unknown) | [facility] | (no | (units | (unknown) | | | | | [facility] | value) | unknown) | | | | | | [facility] | | | | + + + + +---------+ + + + + | Result panel 75 | + + + + + + +---------+ + + | (unknown) | (no date) | (unknown) | [facility] | (no | (units | (unknown) | | | [facility] value[facility] | unknown) | | | [facility] | | | | + + + + +---------+ + + + + | Result panel 76 | + + + + + + +---------+ + + | (unknown) | (no date) | (unknown) | [facility] | (no | (units | (unknown) | | | | [facility] | value) | unknown) | | | | [facility] | | | | + + + + +---------+ + + + + | Result panel 77 | + + + + + + +---------+ + + | (unknown) | (no date) | (unknown) | [facility] | (no | (units | (unknown) | | | | [facility] | value) | unknown) | | | | [facility] | | | | + + + + +---------+ + + + + | Result panel 78 | + + + + + + +---------+ + + | (unknown) | (no date) | (unknown) | [facility] | (no | (units | (unknown) | | | | [facility] | value) | unknown) | | | | [facility] | | | | + + + + +---------+ + + + + | Result panel 79 | + + + + + + +---------+ + + | (unknown) | (no date) | (unknown) | [facility] | (no | (units | (unknown) | | | | [facility] | value) | unknown) | | | | [facility] | | | | + + + + +---------+ + + + + | Result panel 80 | + + + + + + +---------+ + + | (unknown) | (no date) | (unknown) | [facility] | (no | (units | (unknown) | | | | [facility] | value) | unknown) | | | [facility] | | | | + + + + +---------+ + + + + | Result panel 81 | + + + + + + +---------+ + + | (unknown) | (no date) | (unknown) | [facility] | (no | (units | (unknown) | | | | [facility] | value) | unknown) | | | [facility] | | | | + + + + +---------+ + + + + | Result panel 82 | + + + + + + +---------+ + + | (unknown) | (no date) | (unknown) | [facility] | (no | (units | (unknown) | | | | [facility] | value) | unknown) | | | [facility] | | | | + + + + +---------+ + + + + | Result panel 83 | + + + + + + +---------+ + + | (unknown) | (no date) | (unknown) | [facility] | (no | (units | (unknown) | | | | [facility] | value) | unknown) | | | [facility] | | | | + + + + +---------+ + + + + | Result panel 84 | + + + + + + +---------+ + + | (unknown) | (no date) | (unknown) | [facility] | (no | (units | (unknown) | | | | [facility] | value) | unknown) | | | [facility] | | | | + + + + +---------+ + + + + | Result panel 85 | + + + + + + +---------+ + + | (unknown) | (no date) | (unknown) | [facility] | (no | (units | (unknown) | | | | [facility] value) | unknown) | | | [facility] | | | | + + + + +---------+ + + + + | Result panel 86 | + + + + + + +---------+ + + | (unknown) | (no date) | (unknown) | [facility] | (no | (units | (unknown) | | | | [facility] | value) | unknown) | | | [facility] | | | | + + + + +---------+ + + + + | Result panel 87 | + + + + + + +---------+ + + | (unknown) | (no date) | (unknown) | [facility] | (no | (units | (unknown) | | | | | [facility] | value) | unknown) | | | | [facility] | | | | + + + + +---------+ + + + + | Result panel 88 | + + + + + + +---------+ + + | (unknown) | (no date) | (unknown) | [facility] | (no | (units | (unknown) | | | | | [facility] | value) | unknown) | | | | [facility] | | | | + + + + +---------+ + + + + | Result panel 89 | + + + + + + +---------+ + + | (unknown) | (no date) | (unknown) | [facility] | (no | (units | (unknown) | | | | | [facility] | value) | unknown) | | | | | [facility] | | | | + + + + +---------+ + + + + | Result panel 90 | + + + + + + +---------+ + + | (unknown) | (no date) | (unknown) | [facility] | (no | (units | (unknown) | | | | | [facility] | value) | unknown) | | | | | [facility] | | | | + + + + +---------+ + + + + | Result panel 91 | + + + + + + +---------+ + + | (unknown) | (no date) | (unknown) | [facility] | (no | (units | (unknown) | | | | | [facility] | value) | unknown) | | | | [facility] | | | | + + + + +---------+ + + + + | Result panel 92 | + + + + + + +---------+ + + | (unknown) | (no date) | (unknown) | [facility] | (no | (units | (unknown) | | | | | [facility] | value) | unknown) | | | | [facility] | | | | + + + + +---------+ + + + + | Result panel 93 | + + + + + + +---------+ + + | (unknown) | (no date) | (unknown) | [facility] | (no | (units | (unknown) | | | | | [facility] | value) | unknown) | | | | [facility] | | | | + + + + +---------+ + + + + | Result panel 94 | + + + + + + +---------+ + + | (unknown) | (no date) | (unknown) | [facility] | (no | (units | (unknown) | | | | | [facility] | value) | unknown) | | | | [facility] | | | | + + + + +---------+ + + + + | Result panel 95 | + + + + + + +---------+ + + | (unknown) | (no date) | (unknown) | [facility] | (no | (units | (unknown) | | | | | [facility] | value) | unknown) | | | | | [facility] | | | | + + + + +---------+ + + + + | Result panel 96 | + + + + + + +---------+ + + | (unknown) | (no date) | (unknown) | [facility] | (no | (units | (unknown) | | | | | [facility] | value) | unknown) | | | | [facility] | | | | + + + + +---------+ + + + + | Result panel 97 | + + + + + + +---------+ + + | (unknown) | (no date) | (unknown) | [facility] | (no | (units | (unknown) | | | | | [facility] | value) | unknown) | | | | [facility] | | | | + + + + +---------+ + + + + | Result panel 98 | + + + + + + +---------+ + + | (unknown) | (no date) | (unknown) | [facility] | (no | (units | (unknown) | | | | | [facility] | value) | unknown) | | | | [facility] | | | | + + + + +---------+ + + + + | Result panel 99 | + + + + + + +---------+ + + | (unknown) | (no date) | (unknown) | [facility] | (no | (units | (unknown) | | | | | [facility] | value) | unknown) | | | | [facility] | | | | + + + + +---------+ + + + + | Result panel 100 | + + + + + + +---------+ + + | (unknown) | (no date) | (unknown) | [facility] | (no | (units | (unknown) | | | | | [facility] | value) | unknown) | | | | [facility] | | | | + + + + +---------+ + + + + | Result panel 101 | + + + + + + +---------+ + + | (unknown) | (no date) | (unknown) | [facility] | (no | (units | (unknown) | | | | | [facility] | value) | unknown) | | | | [facility] | | | | + + + + +---------+ + + + + | Result panel 102 | + + + + + + +---------+ + + | (unknown) | (no date) | (unknown) | [facility] | (no | (units | (unknown) | | | | | [facility] | value) | unknown) | | | | [facility] | | | | + + + + +---------+ + + + + | Result panel 103 | + + + + + + +---------+ + + | (unknown) | (no date) | (unknown) | [facility] | (no | (units | (unknown) | | | | | [facility] | value) | unknown) | | | | [facility] | | | | + + + + +---------+ + + + + | Result panel 104 | + + + + + + +---------+ + + | (unknown) | (no date) | (unknown) | [facility] | (no | (units | (unknown) | | | | | [facility] | value) | unknown) | | | | [facility] | | | | + + + + +---------+ + + + + | Result panel 105 | + + + + + + +---------+ + + | (unknown) | (no date) | (unknown) | [facility] | (no | (units | (unknown) | | | | | [facility] | value) | unknown) | | | | | [facility] | | | | + + + + +---------+ + + + + | Result panel 106 | + + + + + + +---------+ + + | (unknown) | (no date) | (unknown) | [facility] | (no | (units | (unknown) | | | | | [facility] | value) | unknown) | | | | [facility] | | | | + + + + +---------+ + + + + | Result panel 107 | + + + + + + +---------+ + + | (unknown) | (no date) | (unknown) | [facility] | (no | (units | (unknown) | | | | | [facility] | value) | unknown) | | | | | [facility] | | | | + + + + +---------+ + + + + | Result panel 108 | + + + + + + +---------+ + + | (unknown) | (no date) | (unknown) | [facility] | (no | (units | (unknown) | | | | | [facility] | value) | unknown) | | | | | [facility] | | | | + + + + +---------+ + + + + | Result panel 109 | + + + + + + +---------+ + + | (unknown) | (no date) | (unknown) | [facility] | (no | (units | (unknown) | | | | | [facility] | value) | unknown) | | | | [facility] | | | | + + + + +---------+ + + + + | Result panel 110 | + + + + + + +---------+ + + | (unknown) | (no date) | (unknown) | [facility] | (no | (units | (unknown) | | | | | [facility] | value) | unknown) | | | | [facility] | | | | + + + + +---------+ + + + + | Result panel 111 | + + + + + + +---------+ + + | (unknown) | (no date) | (unknown) | [facility] | (no | (units | (unknown) | | | | | [facility] | value) | unknown) | | | | [facility] | | | | + + + + +---------+ + + + + | Result panel 112 | + + + + + + +---------+ + + | (unknown) | (no date) | (unknown) | [facility] | (no | (units | (unknown) | | | | | [facility] | value) | unknown) | | | | | [facility] | | | | + + + + +---------+ + + + + | Result panel 113 | + + + + + + +---------+ + + | (unknown) | (no date) | (unknown) | [facility] | (no | (units | (unknown) | | | | | [facility] | value) | unknown) | | | | [facility] | | | | + + + + +---------+ + + + + | Result panel 114 | + + + + + + +---------+ + + | (unknown) | (no date) | (unknown) | [facility] | (no | (units | (unknown) | | | | | [facility] | value) | unknown) | | | | [facility] | | | | + + + + +---------+ + + + + | Result panel 115 | + + + + + + +---------+ + + | (unknown) | (no date) | (unknown) | [facility] | (no | (units | (unknown) | | | | | [facility] | value) | unknown) | | | | [facility] | | | | + + + + +---------+ + + + + | Result panel 116 | + + + + + + +---------+ + + | (unknown) | (no date) | (unknown) | [facility] | (no | (units | (unknown) | | | | | [facility] | value) | unknown) | | | | [facility] | | | | + + + + +---------+ + + + + | Result panel 117 | + + + + + + +---------+ + + | (unknown) | (no date) | (unknown) | [facility] | (no | (units | (unknown) | | | | | [facility] | value) | unknown) | | | | [facility] | | | | + + + + +---------+ + + + + | Result panel 118 | + + + + + + +---------+ + + | (unknown) | (no date) | (unknown) | [facility] | (no | (units | (unknown) | | | | | [facility] | value) | unknown) | | | | [facility] | | | | + + + + +---------+ + + + + | Result panel 119 | + + + + + + +---------+ + + | (unknown) | (no date) | (unknown) | [facility] | (no | (units | (unknown) | | | | | [facility] | value) | unknown) | | | | [facility] | | | | + + + + +---------+ + + + + | Result panel 120 | + + + + + + +---------+ + + | (unknown) | (no date) | (unknown) | [facility] | (no | (units | (unknown) | | | | | [facility] | value) | unknown) | | | | [facility] | | | | + + + + +---------+ + + + + | Result panel 121 | + + + + + + +---------+ + + | (unknown) | (no date) | (unknown) | [facility] | (no | (units | (unknown) | | | | | [facility] | value) | unknown) | | | | [facility] | | | | + + + + +---------+ + + + + | Result panel 122 | + + + + + + +---------+ + + | (unknown) | (no date) | (unknown) | [facility] | (no | (units | (unknown) | | | | | [facility] | value) | unknown) | | | | [facility] | | | | + + + + +---------+ + + + + | Result panel 123 | + + + + + + +---------+ + + | (unknown) | (no date) | (unknown) | [facility] | (no | (units | (unknown) | | | | | [facility] | value) | unknown) | [facility] | | | | + + + + +---------+ + + + + | Result panel 124 | + + + + + + +---------+ + + | (unknown) | (no date) | (unknown) | [facility] | (no | (units | (unknown) | | | | | [facility] | value) | unknown) | [facility] | [facility] | | | | + + + + +---------+ + + + + | Result panel 125 | + + + + + + +---------+ + + | (unknown) | (no date) | (unknown) | [facility] | (no | (units | (unknown) | | | | | [facility] | value) | unknown) | [facility] | | | | + + + + +---------+ + + + + | Result panel 126 | + + + + + + +---------+ + + | (unknown) | (no date) | (unknown) | [facility] | (no | (units | (unknown) | | | | | [facility] | value) | unknown) | | | | [facility] | | | | + + + + +---------+ + + + + | Result panel 127 | + + + + + + +---------+ + + | (unknown) | (no date) | (unknown) | [facility] | (no | (units | (unknown) | | | | | [facility] | value) | unknown) | | | | [facility] | | | | + + + + +---------+ + + + + | Result panel 128 | + + + + + + +---------+ + + | (unknown) | (no date) | (unknown) | [facility] | (no | (units | (unknown) | | | | | [facility] | value) | unknown) | | | | [facility] | | | | + + + + +---------+ + + + + | Result panel 129 | + + + + + + +---------+ + + | (unknown) | (no date) | (unknown) | [facility] | (no | (units | (unknown) | | | | | [facility] | value) | unknown) | | | | [facility] | | | | + + + + +---------+ + + + + | Result panel 130 | + + + + + + +---------+ + + | (unknown) | (no date) | (unknown) | [facility] | (no | (units | (unknown) | | | | | [facility] | value) | unknown) | | | | [facility] | | | | + + + + +---------+ + + + + | Result panel 131 | + + + + + + +---------+ + + | (unknown) | (no date) | (unknown) | [facility] | (no | (units | (unknown) | | | | | [facility] | value) | unknown) | | | | [facility] | | | | + + + + +---------+ + + + + | Result panel 132 | + + + + + + +---------+ + + | (unknown) | (no date) | (unknown) | [facility] | (no | (units | (unknown) | | | | [facility] | value) | unknown) | | | | [facility] | | | | + + + + +---------+ + + + + | Result panel 133 | + + + + + + +---------+ + + | (unknown) | (no date) | (unknown) | [facility] | (no | (units | (unknown) | | [facility] | [facility] | value) | unknown) | | | | [facility] | | | | + + + + +---------+ + + + + | Result panel 134 | + + + + + + +---------+ + + | (unknown) | (no date) | (unknown) | [facility] | (no | (units | (unknown) | | | | [facility] value) | unknown) | | [facility] | | | | + + + + +---------+ + + + + | Result panel 135 | + + + + + + +---------+ + + | (unknown) | (no date) | (unknown) | [facility] | (no | (units | (unknown) | | | | [facility] | value) | unknown) | | | | [facility] | | | | + + + + +---------+ + + + + | Result panel 136 | + + + + + + +---------+ + + | (unknown) | (no date) | (unknown) | [facility] | (no | (units | (unknown) | | | | [facility] value) | unknown) | | | | [facility] | | | | + + + + +---------+ + + + + | Result panel 137 | + + + + + + +---------+ + + | (unknown) | (no date) | (unknown) | [facility] | (no | (units | (unknown) | | | | [facility] value) | unknown) | | | | [facility] | | | | + + + + +---------+ + + + + | Result panel 138 | + + + + + + +---------+ + + | (unknown) | (no date) | (unknown) | [facility] | (no | (units | (unknown) | | | | [facility] value) | unknown) | | | | [facility] | | | | + + + + +---------+ + + + + | Result panel 139 | + + + + + + +---------+ + + | (unknown) | (no date) | (unknown) | [facility] | (no | (units | (unknown) | | | | [facility] | value) | unknown) | | | | [facility] | | | | + + + + +---------+ + + + + | Result panel 140 | + + + + + + +---------+ + + | (unknown) | (no date) | (unknown) | [facility] | (no | (units | (unknown) | | | | [facility] | value) | unknown) | | | | [facility] | | | | + + + + +---------+ + + + + | Result panel 141 | + + + + + + +---------+ + + | (unknown) | (no date) | (unknown) | [facility] | (no | (units | (unknown) | | | | [facility] | value) | unknown) | | | | [facility] | | | | + + + + +---------+ + + + + | Result panel 142 | + + + + + + +---------+ + + | (unknown) | (no date) | (unknown) | [facility] | (no | (units | (unknown) | | | | [facility] | value) | unknown) | | | [facility] | | | | + + + + +---------+ + + + + | Result panel 143 | + + + + + + +---------+ + + | (unknown) | (no date) | (unknown) | [facility] | (no | (units | (unknown) | | | | [facility] | value) | unknown) | | | | [facility] | | | | + + + + +---------+ + + + + | Result panel 144 | + + + + + + +---------+ + + | (unknown) | (no date) | (unknown) | [facility] | (no | (units | (unknown) | | | [facility] value) | unknown) | | | [facility] | | | | + + + + +---------+ + + + + | Result panel 145 | + + + + + + +---------+ + + | (unknown) | (no date) | (unknown) | [facility] | (no | (units | (unknown) | | | | [facility] | value) | unknown) | | | [facility] | | | | + + + + +---------+ + + + + | Result panel 146 | + + + + + + +---------+ + + | (unknown) | (no date) | (unknown) | [facility] | (no | (units | (unknown) | | [facility] value) | [facility]) | | | [facility] | | | | + + + + +---------+ + + + + | Result panel 147 | + + + + + + +---------+ + + | (unknown) | (no date) | (unknown) | [facility] | (no | (units | (unknown) | | | [facility] | value) | unknown) | | | [facility] | | | | + + + + +---------+ + + + + | Result panel 148 | + + + + + + +---------+ + + | (unknown) | (no date) | (unknown) | [facility] | (no | (units | (unknown) | | | | [facility] | value) | unknown) | | | [facility] | | | | + + + + +---------+ + + + + | Result panel 149 | + + + + + + +---------+ + + | (unknown) | (no date) | (unknown) | [facility] | (no | (units | (unknown) | | | | [facility] value) | unknown) | | | [facility] | | | | + + + + +---------+ + + + + | Result panel 150 | + + + + + + +---------+ + + | (unknown) | (no date) | (unknown) | [facility] | (no | (units | (unknown) | | | | [facility] | value) | unknown) | | | | [facility] | | | | + + + + +---------+ + + + + | Result panel 151 | + + + + + + +---------+ + + | (unknown) | (no date) | (unknown) | [facility] | (no | (units | (unknown) | | | [facility] value) | unknown) | | [facility] | | | | + + + + +---------+ + + + + | Result panel 152 | + + + + + + +---------+ + + | (unknown) | (no date) | (unknown) | [facility] | (no | (units | (unknown) | | | [facility] value) | unknown) | | | [facility] | | | | + + + + +---------+ + + + + | Result panel 153 | + + + + + + +---------+ + + | (unknown) | (no date) | (unknown) | [facility] | (no | (units | (unknown) | | | [facility] | unknown) | | | [facility] | | | | + + + + +---------+ + + Social History + + + + | date | description | facility | + + + + | 2022-05-03 00:00 | Never smoker | [facility] | + + + + Vital Signs + + + +---------+ | date | measurement | value | units | + + + +---------+ | 2022-04-14 00:00 | BMI | 27.2 | kg/m2 | + + + +---------+ | 2022-04-14 00:00 | BP_diastolic | 62 | mmHg | + + + +---------+ | 2022-04-14 00:00 | BP_systolic | 124 | mmHg | + + + +---------+ | 2022-04-14 00:00 | heart_rate | 68 | /min | + + + +---------+ | 2022-04-14 00:00 | height_metric | 154.94 | cm | + + + +---------+ | 2022-04-14 00:00 | height_standard | 61 | in | + + + +---------+ | 2022-04-14 00:00 | o2_saturation | 95 | % | + + + +---------+ | 2022-04-14 00:00 | respiration_rate | 17 | /min | + + + +---------+ | 2022-04-14 00:00 | temperature_metric | 36.67 | C | | | | | | + + + +---------+ | 2022-04-14 00:00 | | 98 | F | | | temperature_standar | | | | | d | | | + + + +---------+ | 2022-04-14 00:00 | weight_metric | 65.4 | kg | + + + +---------+ | 2022-04-14 00:00 | weight_standard | 144.18 | lb | + + + +---------+ | 2022-05-02 00:00 | BMI | 27.0 | kg/m2 | + + + +---------+ | 2022-05-02 00:00 | height_metric | 154.94 | cm | + + + +---------+ | 2022-05-02 00:00 | height_standard | 61 | in | + + + +---------+ | 2022-05-02 00:00 | weight_metric | 64.8 | kg | + + + +---------+ | 2022-05-02 00:00 | weight_standard | 142.86 | lb | + + + +---------+ | 2022-05-03 00:00 | BP_diastolic | 66 | mmHg | + + + +---------+ | 2022-05-03 00:00 | BP_systolic | 139 | mmHg | + + + +---------+ | 2022-05-03 00:00 | heart_rate | 95 | /min | + + + +---------+ | 2022-05-03 00:00 | o2_saturation | 93 | % | + + + +---------+ | 2022-05-03 00:00 | respiration_rate | 19 | /min | + + + +---------+ | 2022-05-03 00:00 | temperature_metric | 36.61 | C | | | | | | + + + +---------+ | 2022-05-03 00:00 | | 97.9 | F | | | temperature_standar | | | | | d | | | + + + +---------+"
--- OUTSIDE RECORDS SUMMARY | ~2023-03-07 | XMS | Continuity of Care Document ---
Demographics + + + | Address | [address] | | | [place] [address] | + + + | Preferred Language | Unknown | + + + | Marital Status | | + + + | Mosque Affiliation | Unknown | + + + | Race | White | + + + | Ethnic Group | Not or | + + + Author + + + | Author | [facility] | + + + | Organization | [facility] | + + + | Address | [address] | | | [place] [address] | + + + | Phone | | + + + Care Team Providers + + + + | Care Back Roll Lathe Operator Name | Role | Phone | + + + + Unavailable | Unavailable | + + + + Unavailable | Unavailable | + + + + Allergies and Intolerances + + + + + | date | description | facility | type | + + + + + | (no date) | Urticaria | [facility] | (unknown) | | | | Hospital | | + + + + + | (no date) | Mild | [facility] | (unknown) | | | | Hospital | | + + + + + | (no date) | Rash | [facility] | (unknown) | | | | Hospital | | + + + + + | (no date) | Naproxen | [facility] | (unknown) | | | | Hospital | | + + + + + | (no date) | Naproxen | [facility] | (unknown) | | | | Hospital [...] 2022-05-03 00:00 | No vaccine administered [facility] | + + + + Medications + + + + | date | description | facility | + + + + | 2022-05-03 00:00 | CETIRIZINE HCL | [facility] | + + + + | 2022-05-03 00:00 | cetirizine hydrochloride | [facility] | | | 10 MG Oral Tablet | | + + + + | 2022-05-03 00:00 | ONDANSETRON | [facility] | + + + + | 2022-05-03 00:00 | ondansetron 4 MG | [facility] | | | Disintegrating Oral Tablet | | + + + + | 2022-05-03 00:00 | DAPSONE | [facility] | + + + + | 2022-05-03 00:00 | dapsone 25 MG Oral Tablet | [facility] | + + + + | 2022-05-03 00:00 | DIAZEPAM | [facility] | + + + + | 2022-05-03 00:00 | diazepam 10 MG Oral Tablet | [facility] | | | | | + + + + | 2017-09-14 00:00 | FAMCICLOVIR | [facility] | + + + + | 2017-09-14 00:00 | famciclovir 500 MG Oral | [facility] | | | Tablet | | + + + + | 2022-05-03 00:00 | ACETAMINOPHEN | [facility] | + + + + | 2022-05-03 00:00 | acetaminophen 500 MG Oral | [facility] | | | Tablet | | + + + + | 2022-05-03 00:00 | Beclomethasone | [facility] | | | Dipropionate | | + + + + | 2022-05-03 00:00 | Breath-Actuated 120 ACTUAT | [facility] | | | beclomethasone | | | | dipropionate 0.08 | | + + + + | 2022-05-03 00:00 | MONTELUKAST SODIUM | [facility] | + + + + | 2022-05-03 00:00 | montelukast 10 MG Oral | [facility] | | | Tablet | | + + + + | 2022-05-03 00:00 | MELATONIN | [facility] | + + + + | 2022-05-03 00:00 | melatonin 5 MG Oral Tablet | [facility] | | | | | + + + + | 2022-05-03 00:00 | ASCORBIC ACID | [facility] | + + + + | 2022-05-03 00:00 | ascorbic acid 500 MG Oral | [facility] | | | Tablet | | + + + + | 2022-05-03 00:00 | FERROUS SULFATE | [facility] | + + + + | 2022-05-03 00:00 | ferrous sulfate 325 MG | [facility] | | | Oral Tablet | | + + + + | 2022-05-03 00:00 | METOCLOPRAMIDE HCL | [facility] | + + + + | 2022-05-03 00:00 | metoclopramide 5 MG Oral | [facility] | | | Tablet | | + + + + | 2022-05-03 00:00 | ESOMEPRAZOLE MAG | [facility] | | | TRIHYDRATE | | + + + + | 2022-05-03 00:00 | esomeprazole 20 MG Delayed | [facility] | | | Release Oral Capsule | | | | [Nexium] | | + + + + | 2022-05-03 00:00 | ATORVASTATIN CALCIUM | [facility] | + + + + | 2022-05-03 00:00 | atorvastatin 10 MG Oral | [facility] | | | Tablet | | + + + + | 2022-05-03 00:00 | ASPIRIN | [facility] | + + + + | 2022-05-03 00:00 | aspirin 81 MG Delayed | [facility] | | | Release Oral Tablet [Ariela | | | | Aspirin] | | + + + + | 2015-12-17 00:00 | CYCLOBENZAPRINE HCL | [facility] | + + + + | 2015-12-17 00:00 | cyclobenzaprine | [facility] | | | hydrochloride 10 MG Oral | | | | Tablet | | + + + + | 2022-05-03 00:00 | 24 HR diltiazem | [facility] | | | hydrochloride 240 MG | | | | Extended Release Oral T | | + + + + | 2022-05-03 00:00 | DILTIAZEM HCL | [facility] | + + + + | 2022-05-03 00:00 | ZOLPIDEM TARTRATE | [facility] | + + + + | 2022-05-03 00:00 | zolpidem tartrate 5 MG | [facility] | | | Oral Tablet [Ambien] | | + + + + | 2022-05-03 00:00 | HYDROCODONE | [facility] | | | BIT/ACETAMINOPHEN | | + + + + | 2022-05-03 00:00 | acetaminophen 325 MG / | [facility] | | | hydrocodone bitartrate 5 MG | | | | Oral Tabl | | + + + + | 2015-12-17 00:00 | HYDROCODONE | [facility] | | | BIT/ACETAMINOPHEN | | + + + + | 2017-09-14 00:00 | HYDROCODONE | [facility] | | | BIT/ACETAMINOPHEN | | + + + + | 2015-12-17 00:00 | acetaminophen 325 MG / | [facility] | | | hydrocodone bitartrate 5 MG | | | | Oral Tabl | | + + + + | 2017-09-14 00:00 | acetaminophen 325 MG / | [facility] | | | hydrocodone bitartrate 5 MG | | | | Oral Tabl | | + + + + | 2022-05-03 00:00 | ALBUTEROL SULFATE | [facility] | + + + + | 2022-05-03 00:00 | [id number] 200 ACTUAT | [facility] | | | albuterol 0.09 MG/ACTUAT | | | | Metered Dose I | | + + + + | 2022-05-03 00:00 | CLOBETASOL PROPIONATE | [facility] | + + + + | 2022-05-03 00:00 | clobetasol propionate 0.5 | [facility] | | | MG/ML Topical Cream | | + + + + | 2022-05-03 00:00 | POLYETHYLENE GLYCOL 3350 | [facility] | + + + + | 2022-05-03 00:00 | polyethylene glycol 3350 | [facility] | | | [address]60 MG Powder for Oral | | | | Solution [ | | + + + + | 2022-05-03 00:00 | PSYLLIUM HUSK/ASPARTAME | [facility] | + + + + | 2022-05-03 00:00 | psyllium 3400 MG Powder | [facility] | | | for Oral Suspension | | | | [Metamucil] | | + + + + | 2022-05-03 00:00 | 60 ACTUAT fluticasone | [facility] | | | propionate 0.5 MG/ACTUAT / | | | | salmeterol | | + + + + | 2022-05-03 00:00 | FLUTICASONE/SALMETEROL | [facility] | + + + + | 2022-05-03 00:00 | LEVOTHYROXINE SODIUM | [facility] | + + + + | 2022-05-03 00:00 | levothyroxine sodium 0.125 | [facility] | | | MG Oral Tablet [Levoxyl] | | + + + + Problems + + + + | date | description | facility | + + + + | 2015-12-17 00:00 | Back contusion | [facility] | + + + + | 2015-12-17 00:00 | Contusion of back | [facility] | + + + + | 2017-09-14 00:00 | Herpes zoster | [facility] | + + + + | 2022-04-14 00:00 | Left rib fracture | [facility] | + + + + | 2022-04-14 00:00 | Closed olecranon fracture | [facility] | + + + + | 2022-04-14 00:00 | Fracture of rib of left | [facility] | | | side | | + + + + | 2022-04-14 00:00 | Closed fracture of | [facility] | | | olecranon process of ulna | | + + + + | 2022-05-02 00:00 | Stercoral colitis | [facility] | + + + + | 2022-05-02 00:00 | Obstipation | [facility] | + + + + Procedures [...] 2022-05-03 00:00 | Never smoker | [facility] | + + + + Vital Signs [...]
[~2023-03-07 00:11] MED LIST changes: +ACETAMINOPHEN500 MG PO; +ATORVASTATIN CA10 MG PO; +CLOBETASOL PROP15 GM TOP; +DIAZEPAM10 MG PO; +IRON325 M1 PO; +MELATONIN5 M2 PO; +METAMUCIL FIBE3.4 GM PO; +METOCLOPRAMIDE H5 MG PO; +MIRALAX17 GM PO; +ONDANSETRON ODT4 MG PO; +QVAR REDIHALE10.6 G1 INH; +VENTOLIN HFA18 GM INH; +VITAMIN C500 M1 PO
--- OUTSIDE RECORDS SUMMARY | 2023-03-07 00:12 | XMS ---
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 Cruz has no Care Guidelines for this patient. Violet VISIT COUNT (12 MO.) 1 [facility] 3 DAVID Paul TOTAL 4 NOTE: Visits indicate total known visits. [place] [place]12 [place].) 03/07/2023 00:11 [facility] [place] TYPE: Emergency COMPLAINT: - BACK PAIN 05/02/2022 02:35 [facility] [place] TYPE: Emergency COMPLAINT: - CONSTIPATION, NAUSEA 04/15/2022 20:53 [facility] TYPE: Emergency DIAGNOSES: - Adverse effect of unspecified drugs, medicaments and biological substances, initial encounter - Contusion of unspecified eyelid and periocular area, initial encounter - Displaced fracture of olecranon process without intraarticular extension of right ulna, subsequent encounter for closed fracture with routine healing - Fracture of one rib, left side, subsequent encounter for fracture with routine healing - Nausea with vomiting, unspecified - Emesis - vomiting 04/14/2022 11:43 [facility] [place] TYPE: Emergency COMPLAINT: - MULTI INJ DIAGNOSES: - Allergy status to other drugs, medicaments and biological substances - Allergy status to sulfonamides - Displaced fracture of olecranon process without intraarticular extension of right ulna, initial encounter for closed fracture - Fall on same level from slipping, tripping and stumbling without subsequent striking against object, initial encounter - Fracture of one rib, left side, initial encounter for closed fracture - Hypothyroidism, unspecified - snf (current) use of aspirin - Other long term acute care registered nurse (current) drug therapy - Pain in right elbow INPATIENT VISIT TRACKING (12 MO.) 05/02/2022 04:[address] [facility] [place] TYPE: Medical Surgical COMPLAINT: - STERCORAL OBSTRUCTION DIAGNOSES: - Age-related physical debility - Age-related physical debility - Allergy status to other drugs, medicaments and biological substances - Allergy status to sulfonamides - Allergy to other foods - Anemia, unspecified - Contact with and (suspected) exposure to COVID-19 - Contusion of other part of head, initial encounter - Contusion of other part of head, initial encounter - Essential (primary) hypertension - Fall on same level, unspecified, initial encounter - Fall on same level, unspecified, initial encounter - Fecal impaction - Fecal impaction - Fracture of one rib, right side, initial encounter for closed fracture - Fracture of one rib, right side, initial encounter for closed fracture - Gastro-esophageal reflux disease without esophagitis - Hypothyroidism, unspecified - Left lower quadrant pain - terminal carman (current) use of aspirin - snf (current) use of opiate analgesic - snf (current) use of systemic steroids - Noninfective gastroenteritis and colitis, unspecified - Other injury of unspecified body region, initial encounter - Other long term acute care registered nurse (current) drug therapy - Other specified noninfective gastroenteritis and colitis - Other specified postprocedural states - Unspecified asthma, uncomplicated - Unspecified asthma, uncomplicated - Unspecified dislocation of right ulnohumeral joint, initial encounter [email or web address]
[2023-03-07] MEDS ORDERED: HYDROCODON-ACE1 EA10 PO (00:25)
[2023-03-07] MEDS ORDERED: REMERON30 MG PO (01:40)
[2023-03-07] MEDS ORDERED: TRAMADOL HCL50 MG PO (01:40)
[2023-03-07 01:52] VITALS: BP 134/64
== END 2023-03-07 01:52 | disposition home or self-care (01) ==
LOC: ED 00:11
DX: G89.18 Other acute postprocedural pain (principal); M79.604 Pain in right leg; M54.50 Low back pain, unspecified; I10 Essential (primary) hypertension; Z88.6 Allergy status to analgesic agent; Z88.2 Allergy status to sulfonamides; Z79.899 Other long term (current) drug therapy; Z79.82 Long term (current) use of aspirin; Z79.890 Hormone replacement therapy
CPT/HCPCS: 99283

== ENCOUNTER 2024-10-04 15:36 | Emergency (ER) | payer MEDICARE, OTHER ==
[~2024-10-04] VITALS: Ht 154.9 cm; Wt 66.7 kg
[~2024-10-04 15:36] MED LIST changes: +CEPHALEXIN500 M1 PO; +ESOMEPRAZOLE MA40 MG PO; +MACROBID 100 M100 MG PO; +MELOXICAM15 MG PO; +REMERON30 MG PO; +TRAMADOL HCL50 MG PO
[2024-10-04 17:26] VITALS: BP 154/76
== END 2024-10-04 17:27 | disposition home or self-care (01) ==
LOC: ED 15:36
DX: S20.212A Contusion of left front wall of thorax, initial encounter (principal); W22.8XXA Striking against or struck by other objects, initial encounter; E03.9 Hypothyroidism, unspecified; J45.909 Unspecified asthma, uncomplicated; I10 Essential (primary) hypertension; K21.9 Gastro-esophageal reflux disease without esophagitis; Z88.8 Allergy status to other drugs, medicaments and biological substances; Z88.2 Allergy status to sulfonamides; Z79.899 Other long term (current) drug therapy; Z79.890 Hormone replacement therapy; Z79.82 Long term (current) use of aspirin
CPT/HCPCS: 71045; 99283-25

== ENCOUNTER 2024-11-30 15:13 | Emergency (ER) | payer MEDICARE, OTHER ==
[~2024-11-30] VITALS: Ht 154.9 cm; Wt 80.0 kg
[2024-11-30] MEDS ORDERED: HYDROmorphone HCL 1 MG/ML SYR IV ONE (15:45)
[2024-11-30 16:15] LABS: BASOPHILS 0.6 % (0-2); EOSINOPHILS 3.6 % (0-6); HEMATOCRIT 33.7 % (35.0-50.0); LYMPHOCYTES 26.6 % (24-44); MCH 30.1 (27-36); MCHC 32.7 g/dl (30-36); MCV 92.2 fl (81-99); MONOCYTES 7.9 % (0-12); NEUTROPHILS 61.3 % (39-80); PLATELET COUNT 313 K/uL (140-440); RBC 3.65 M/ul (4.3-5.7); RDW 15.1 (10.5-15.0)
[2024-11-30] MEDS ORDERED: ADVAIR HFA 230-12 GM INH (16:15)
[2024-11-30 16:33] LABS: ALBUMIN 3.4 g/dL (3.4-5.0); ALBUMIN/GLOBULIN RATIO 1.03 (1.1-2.4); ALCOHOL, MEDICAL <3 ng/dL (<3); ALKALINE PHOSPHATASE 78 U/L (46-116); ALT (SGPT) 20 U/L (14-59); ANION GAP 11.8 (7-21); AST (SGOT) 15 U/L (15-37); BILIRUBIN, TOTAL 0.3 mg/dL (0.2-1.0); CALCIUM 9.5 mg/dL (8.5-10.1); CARBON DIOXIDE 28 mmol/L (21-32); CHLORIDE 105 mmol/L (98-107); CREATINE KINASE 63 U/L (26-192); CREATININE, SERUM 1.33 mg/dL (0.55-1.02); GLOMERULAR FILTRATION RATE,EST 41 mL/min (>60); POTASSIUM 3.8 mmol/L (3.5-5.1); PROTEIN, TOTAL 6.7 g/dL (6.4-8.2); UREA NITROGEN 27 mg/dL (7-18)
[2024-11-30 16:48] LABS: ABO O; ANTIBODY SCREEN NEGATIVE; RH POSITIVE
[2024-11-30] MEDS ORDERED: fentaNYL citrate 100 MCG/2 ML VIAL IV ONE ×2 (18:15→18:30)
[2024-11-30 19:50] VITALS: BP 149/64
== END 2024-11-30 19:40 | disposition home or self-care (01) ==
LOC: ED 15:13
PROVIDERS: Emergency Medicine
DX: S52.502A Unspecified fracture of the lower end of left radius, initial encounter for closed fracture (principal); I10 Essential (primary) hypertension; J45.909 Unspecified asthma, uncomplicated; K21.9 Gastro-esophageal reflux disease without esophagitis; W18.30XA Fall on same level, unspecified, initial encounter; Z79.899 Other long term (current) drug therapy
CPT/HCPCS: 25605; 36415; 70450; 71250; 72125; 72170; 73100; 73110; 80053; 80307; 82550; 83605; 85025; 86850; 86900; 86901; 99284-25; G0480; J1171; J3010

== ENCOUNTER 2024-12-01 16:15 | Inpatient (IN) | payer MEDICARE, OTHER ==
[~2024-12-01] VITALS: Ht 154.9 cm; Wt 67.9 kg
[~2024-12-01 16:15] MED LIST changes: +ADVAIR HFA 230-12 GM INH
--- OUTSIDE RECORDS SUMMARY | 2024-12-01 16:21 | XMS ---
PreManage Notification: MARIA DOLORES ROMANO Security [place] Inspector Events No recent Security Events currently on file CRITERIA MET - [facility] - 2 Visits in 30 Days CARE PROVIDERS There are no care providers on record at this time. [place] has no Care Guidelines for this patient. [facility] (12 MO.) [facility] T[facility] NOTE: Visits indicate total known visits. ED/C VISIT TRACKING (12 MO.) 12/01/2024 16:[address] 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 - Other mcc (current) drug therapy - Striking against or struck by other objects, initial encounter - Unspecified asthma, uncomplicated 02/20/2024 06:42 [facility] [place] TYPE: Emergency COMPLAINT: - FOOT PAIN DIAGNOSES: - Allergy status to analgesic agent - Allergy status to sulfonamides - Cellulitis of right lower limb - Essential (primary) hypertension - Gastro-esophageal reflux disease without esophagitis - Hormone replacement therapy - Hypothyroidism, unspecified - 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
[2024-12-01] MEDS ORDERED: HYDROmorphone HCL 1 MG/ML SYR IM ONE (17:15)
[2024-12-01 17:41] LABS: BILIRUBIN, URINE NEGATIVE (negative); BLOOD/HGB, URINE NEGATIVE (Negative); KETONE, URINE NEGATIVE (Negative); LEUK ESTERASE, URINE NEGATIVE (negative); NITRITE, URINE NEGATIVE (negative); PH, URINE 7.5 (5-7)
[2024-12-01 17:47] LABS: BACTERIA, URINE NONE SEEN /hpf (negative); CASTS, URINE NONE SEEN \\lpf; COLLECTION TYPE, URINE CLEAN CATCH; CRYSTALS, URINE NONE SEEN (0-1+); EPITHELIAL CELLS, URINE SQUAMOUS 1+ /lpf (0-1+); REFLEX CULTURE, URINE Yes (No)
[2024-12-01 17:53] LABS: BASOPHILS 0.6 % (0-2); EOSINOPHILS 0.4 % (0-6); HEMATOCRIT 33.6 % (35.0-50.0); LYMPHOCYTES 12.8 % (24-44); MCH 29.8 (27-36); MCHC 32.8 g/dl (30-36); MCV 91.1 fl (81-99); MONOCYTES 9.3 % (0-12); NEUTROPHILS 76.9 % (39-80); PLATELET COUNT 333 K/uL (140-440); RBC 3.69 M/ul (4.3-5.7); RDW 14.9 (10.5-15.0)
[2024-12-01 18:20] LABS: PARTIAL THROMBOPLASTIN TIME 28.8 Sec (22.9-41.3)
[2024-12-01 18:21] LABS: INR 0.88 (0.80-1.30); PROTIME 11.8 Sec (11.2-14.2)
[2024-12-01] MEDS ORDERED: MIDAZOLAM HCL 2 MG/2 ML VIAL IV ONE (19:30)
[2024-12-01 19:53] LABS: ALBUMIN 3.5 g/dL (3.4-5.0); ALBUMIN/GLOBULIN RATIO 0.97 (1.1-2.4); ANION GAP 13.9 (7-21); BILIRUBIN, TOTAL 0.4 mg/dL (0.2-1.0); BUN/CREATININE RATIO 22.11 (6.0-28.6); CALCIUM 9.1 mg/dL (8.5-10.1); CREATININE, SERUM 1.04 mg/dL (0.55-1.02); POTASSIUM 3.9 mmol/L (3.5-5.1); PROTEIN, TOTAL 7.1 g/dL (6.4-8.2)
[2024-12-01] MEDS ORDERED: CEFTRIAXONE SODIUM 2 GM in SODIUM CHLORIDE 0.9% 100 ML IV ONE (23:30)
[2024-12-01] MEDS ORDERED: ACETAMINOPHEN 325 MG TAB PO PRN (23:45)
[2024-12-02] VITALS (9 sets, daily range): BP systolic 134–158; BP diastolic 53–78
--- NOTE | 2024-12-02 01:29 | NUR ---
THIS RN TO ED TO TRANSPORT PT TO FLOOR. BEDSIDE REPORT RECEIVED. PT TO ROOM 120 FOR CLOSE OBSERVATION. 3PA SLIDE TRANSFER TO BED. PT ALERT AND ORIENTED X 2. PT NOTED TO HAVE DIFFICULTY FINDING WORDS. ALSO NOTED SLIGHT LEFT FACIAL DROOP. LEFT WRIST IN CAST ELEVATED ON A PILLOW. PT REPORTS LEFT ARM PAIN 10/10. PRN FOR PAIN ADMIN PER EMAR. NO SWALLOWING ISSUES NOTED. UP TO BSC WITH 2PA TO VOID. STAFF ASSIST WITH MARGOT CARE. BACK TO BED, ROBLES WELL. TELE AND CPOX PLACED PER ORDER. PT ORIENTED TO ROOM AND NURSE CALL LIGHT. NO FURTHER NEEDS. BED ALARM IN PLACE. PT IN VIEW OF NURSES STATION. CALL LIGTH IN REACH.
--- NOTE | 2024-12-02 02:14 | NUR ---
BED ALARM SOUNDING. pt WITH APHASIA, DIFFICULTY STATING NEEDS. SBA TO BSC FOR VOID. pt UP AND DOWN OFF BSC, CONTINUES TO STATE NEED "TO GO". SBA TO RESTROOM FOR VOID. pt WASHES HAND AND ASSISTED BACK TO BED. BED ALARM ON. pt WITH APHASIA STATES WANTS LIGHTS ON. CONTINUES TO YELL FOR NURSE TO COME BACK IN, pt FRUSTRATED, EVENTUALLY STATES WAN'T LIGHTS OFF. LIGHTS OFF IN ROOM. pt NOW RESTING IN BED, NO DISTRESS NOTED.
--- NOTE | 2024-12-02 03:53 | NUR ---
PT MOANING, ATTEMPTING TO GET OUT OF BED WITH OUT ASSIST. REPORTS BACK AND LEFT WRIST PAIN. NO PRN'S AVAILABLE. MD NOTIFIED. NEW TELEPHONE ORDERS RECEIVED VERIFIED WITH READBACK METHOD.
[2024-12-02] MEDS ORDERED: HYDROmorphone HCL 2 MG TAB PO PRN (04:00)
[2024-12-02] MEDS ORDERED: LIDOCAINE HCL 4% 1 EACH PATCH TD ONE (04:00)
--- NOTE | 2024-12-02 04:24 | NUR ---
PRN FOR 8/10 RIGHT RIB/LEFT WRIST PAIN ADMIN PER EMAR. PT UP TO BR TO VOID UNMEASURABLE AMOUNT. STAFF ASSIST WITH MARGOT CARE. BACK TO BED. VS AND I&O OBTAINED. BED ALARM IN PLACE. CALL LIGHT IN REACH. PT IN VIEW OF NURSES STATION.
--- NOTE | 2024-12-02 05:44 | NUR ---
PT AWAKE IN BED, CONFUSED. ATTEMPTED TO REORIENT WITH NO SUCCESS. 2PA TO REPOSITION IN BED. LAB IN ROOM FOR MORNING DRAW. BED ALARM IN PLACE. CALL LIGHT IN REACH.
[2024-12-02 05:57] LABS: BASOPHILS 0.4 % (0-2); HEMATOCRIT 33.4 % (35.0-50.0); LYMPHOCYTES 12.9 % (24-44); MCH 29.9 (27-36); MCHC 32.8 g/dl (30-36); MCV 90.9 fl (81-99); MONOCYTES 11.2 % (0-12); NEUTROPHILS 75.5 % (39-80); PLATELET COUNT 318 K/uL (140-440); RBC 3.67 M/ul (4.3-5.7); RDW 14.7 (10.5-15.0)
--- NOTE | 2024-12-02 07:49 | NUR ---
Hourly rounding. Board has been updated. Patient woke up confused. I asked patient if they knew where they were. They replied yes. Patient then reapeats that she wants to see God and Elias. Charge nurse has been notified of patient behavior. Call light has been placed within reach, and alarms are turned on the bed.
--- NOTE | 2024-12-02 08:18 | NUR ---
Phone consent obtained for MRI from patient's nephew Cuauhtemoccornelius Garcia-reported decision maker and only person on contact list.
[2024-12-02] MEDS ORDERED: ALENDRONATE SOD70 MG PO (08:25)
[2024-12-02] MEDS ORDERED: INCRUSE ELLI62.5 MCG INH (08:27)
[2024-12-02] MEDS ORDERED: GABAPENTIN300 MG PO (09:00)
[2024-12-02] MEDS ORDERED: SYNTHROID125 MCG PO (09:01)
--- NOTE | 2024-12-02 09:37 | NUR ---
MED REC COMPLETE
[2024-12-02] MEDS ORDERED: SEVOFLURANE 250 ML BTL INH ONE (09:39)
--- NOTE | 2024-12-02 09:40 | NUR ---
Hourly Rounding. Patient appears to be in a better mood. Her neice in-law is at bedside. No request from patient at this time
--- NOTE | 2024-12-02 10:02 | NUR ---
Patient is awake, alert to self/, she remains confused to questions and needs frequent redirecting. Tylenol 650mg po admin at this time with pudding, pt tolerated well. Left wrist cms intact, elevated on pillow. Patient has a family friend at bedside visiting. No current needs, personal supplies and call light within reach.
[2024-12-02] MEDS ORDERED: ACETAMINOPHEN 325 MG TAB PO PRN (10:45)
[2024-12-02] MEDS ORDERED: ondansetron HCL 4 MG/2 ML VIAL IV PRN (10:45)
[2024-12-02] MEDS ORDERED: POLYETHYLENE GLYCOL 3350 1 PACKET PO PRN (10:45)
--- NOTE | 2024-12-02 10:52 | NUR ---
CALLED AND SPOKE WITH BECKI GUILLEN. PATIENT LIVES HOME ALONE AND HAS NO DME PER NEPHEW. DISCUSSED POTENTIAL SNF PLACEMENT. STATES PATIENT WOULD LIKELY ADAMANTLY REFUSE A SNF IF OFFERED. STATES HE BELIEVES PATIENT WILL PREFER HOME HEALTH. DISCUSSED CAREGIVER OPTIONS AND [employer]OUN[employer]Y METALLURGIST MEDICAID. WILMER STATES HE WILL BE AT THE FACILITY IN APPROXIMATELY AN HOUR AND A HALF TO DISCUSS FURTHER. INFORMED HIM PATIENT REMAINS CONFUSED AND UNABLE TO MAKE DECISIONS AT THIS TIME.
--- NOTE | 2024-12-02 10:58 | NUR ---
Patient back to medical floor from MRI study. Tele replaced, bed alarm intact. Patient awake, pleasantly confused. Family friend at bedside. Close to RN station. Left arm is elevated on a pillow.
[2024-12-02] MEDS ORDERED: PANTOPRAZOLE SODIUM 40 MG TABEC PO SCH (11:31)
[2024-12-02] MEDS ORDERED: GABAPENTIN 300 MG CAP PO SCH (11:32)
[2024-12-02] MEDS ORDERED: DAPSONE 100 MG TAB PO SCH (11:32)
--- NOTE | 2024-12-02 11:43 | EKG ---
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
[2024-12-02] MEDS ORDERED: CEFTRIAXONE SODIUM 2 GM in SODIUM CHLORIDE 0.9% 100 ML IV SCH (11:45)
--- NOTE | 2024-12-02 11:52 | NUR ---
Verbal order obtained from Dr. Thomas for anesthesia to consult for needed left arm nerve block. Graphics Intern notifed.
[2024-12-02] MEDS ORDERED: PHARMACY RENAL DOSE ADJUSTMENT 1 DOSE MISC PO SCH (12:00)
[2024-12-02] MEDS ORDERED: DAPSONE 25 MG TAB PO SCH (12:30)
[2024-12-02] MEDS ORDERED: dexmedeTOMIDine HCl 200 MCG/2 ML VIAL ONE (12:45)
[2024-12-02] MEDS ORDERED: LIDOCAINE HCL 2% 5 ML SDV ONE (12:45)
[2024-12-02] MEDS ORDERED: DEXAMETHASONE SOD PHOS 4 MG/ML VIAL ONE (12:45)
[2024-12-02] MEDS ORDERED: Ropivacaine HCl 0.5% 30 ML VIAL ONE (12:45)
[2024-12-02] MEDS ORDERED: LIDOCAINE 2% VISCOUS 6 ML SYR TOP ONE (13:30)
--- NOTE | 2024-12-02 13:55 | NUR ---
Barfield catheter 16fr placed for urinary retention. Inserted using sterile technique, pt tolerated well. Immediate return of clear yellow urine noted.
--- NOTE | 2024-12-02 14:21 | NUR ---
SPOKE WITH BECKI GUILLEN. HE STATES PATIENT SEEMED AGREEABLE TO SNF WHEN HE MENTIONED IT. HOWEVER, HE WOULD LIKE TO WAIT UNTIL PATIENT HAS HAD HER SURGICAL PROCEDURE COMPLETED PRIOR TO MAKING DECISION REGARDING SNF AT THIS TIME. PATIENT IS SCHEDULED FOR SURGERY FOR 12/03/24. WILL REVISIT DC PLAN POST OPERATIVELY.
--- NOTE | 2024-12-02 15:15 | NUR ---
Admin tylenol 650mg po at this time for reported generalized pain.
--- NOTE | 2024-12-02 15:31 | NUR ---
Hourly Rounding. Patient appears to be still confused. Nephew was at bedside. No request from patient at this time
--- NOTE | 2024-12-02 15:53 | NUR ---
PATIENT VERY CONFUSED. DISCUSSED SNF PLACEMENT AND PATIENT REQUESTED TO DO THERAPY AT THE [facility]. MULTIPLE ATTEMPTS TO EXPLAIN SNF FACILITY AND PATIENT IS NOT ABLE TO UNDERSTAND AT THIS TIME. WILL DISCUSS AT A LATER TIME.
--- NOTE | 2024-12-02 16:32 | NUR ---
Patient having an ECHO done at this time.
--- NOTE | 2024-12-02 19:34 | NUR ---
REPORT RECEIVED FROM DAY SHIFT RN. PT LYING IN BED ALERT AND PLEASANTLY CONFUSED. NO NEEDS AT THIS TIME. CALL LIGHT IN REACH. WHITE BOARD UPDATED. CALL LIGHT IN REACH.
[2024-12-02] MEDS ORDERED: ATORVASTATIN 40 MG TAB PO SCH (20:11)
[2024-12-02] MEDS ORDERED: LIDOCAINE PATCH REMOVAL 1 EA TD SCH (21:00)
[2024-12-02] MEDS ORDERED: MELATONIN 3 MG TAB PO PRN (21:00)
[2024-12-02] MEDS ORDERED: dilTIAZem HCL 240 MG CAPCR PO SCH (21:00)
[2024-12-02] MEDS ORDERED: BUDESONIDE 0.5 MG/2 ML VIAL INH SCH (21:00)
--- NOTE | 2024-12-02 22:04 | NUR ---
EVENING ASSESSMENT COMPLETE. SCHEDULED MEDS ADMIN PER EMAR. PT REPORTS LEFT ARM PAIN 10/. PRN FOR PAIN ADMIN PER EMAR. LEFT ARM BRACE IN PLACE ELEVATED ON PILLOW. CMS INTACT. LANDIS PATENT WITH YELLOW URINE. 2PA TO REPOSITION IN BED. PT A&O X 3. SOME DIFFICULTY WORD FINDING NOTED. PT DENIES FURTHER NEEDS. CALL LIGHT IN REACH.
--- NOTE | 2024-12-02 23:40 | NUR ---
PT RESTING IN BED WITH EYES CLOSED. RESPIRATIONS EVEN. CALL LIGHT IN REACH. BED ALARM FOR SAFETY.
[2024-12-03] VITALS (7 sets, daily range): BP systolic 121–151; BP diastolic 50–65
--- NOTE | 2024-12-03 02:08 | NUR ---
PT RESTING IN BED WITH EYES CLOSED. RESPIRATIONS EVEN. 0200 VS HELD AT THIS TIME TO ALLOW PT TO REST. TELE #[address] SR. HR 70'S. DONOR RELATIONS OFFICER AWARE. BED ALARM FOR SAFETY. CALL LIGHT IN REACH.
--- NOTE | 2024-12-03 03:54 | NUR ---
PT AWAKE IN BED. REPORTS SHE IS RESTING COMFORTABLE. CONTINUED APHASIA NOTED. LANDIS PATENT WITH YELLOW URINE. LEFT ARM IN CAST ELEVATED ON PILLOW. PT DENIES NEEDS AT THIS TIME. CALL LIGHT IN REACH. BED ALARM FOR SAFETY.
[2024-12-03 05:41] LABS: HEMATOCRIT 31.6 % (35.0-50.0); HEMOGLOBIN 10.5 g/dL (12.0-18.0); MCH 29.9 (27-36); MCHC 33.1 g/dl (30-36); MCV 90.5 fl (81-99); PLATELET COUNT 336 K/uL (140-440); RBC 3.49 M/ul (4.3-5.7)
[2024-12-03 05:50] LABS: ANION GAP 12.6 (7-21); BUN/CREATININE RATIO 19.82 (6.0-28.6); CALCIUM 9.1 mg/dL (8.5-10.1); CREATININE, SERUM 1.16 mg/dL (0.55-1.02); MAGNESIUM 2.6 mg/dL (1.8-2.4); POTASSIUM 3.6 mmol/L (3.5-5.1)
--- NOTE | 2024-12-03 06:08 | NUR ---
PT AWAKE IN BED. 2PA TO REPOSITION. LUE ELEVATED WITH PILLOW. VS AND I&O OBTAINED. SCHEDULED MEDS ADMIN PER EMAR. PT REPORTS LEFT ARM PAIN 04/12. PRN FOR PAIN ADMIN PER EMAR. NO FURTHER NEEDS. BED ALARM FOR SAFETY. CALL LIGHT IN REACH.
[2024-12-03 06:12] LABS: EOSINOPHILS, MANUAL DIFF 1; LYMPHOCYTES, MANUAL DIFF 15; MONOCYTES, MANUAL DIFF 8; NEUTROPHILS, MANUAL DIFF 76
[2024-12-03] MEDS ORDERED: LEVOTHYROXINE SODIUM 125 MCG TAB PO SCH (07:00)
--- NOTE | 2024-12-03 07:48 | NUR ---
Hourly Rounding. Patient is sleeping at this momment. Call light has been placed within reach
--- NOTE | 2024-12-03 07:55 | NUR ---
Patient in bed awake, alert to self. Left arm elevated on pillow, cap refill less than three seconds in hand. Patient pleasantly confused. Bed alarm intact, hob elevated.
[2024-12-03] MEDS ORDERED: ALBUTEROL/IPRATROPIUM 3 ML NEB INH SCH (08:00)
[2024-12-03] MEDS ORDERED: ASPIRIN 81 MG CHEW PO SCH (08:00)
--- NOTE | 2024-12-03 08:31 | NUR ---
Patient assisted to chair for breakfast. Patient tolerates ambulation well with prompting/SBA. Patient reports she did not sleep well, per shift report patient selpt through the night. Chair alarm in place. Patient rpeorts she is hungry and ready to eat. Close to RN station.
[2024-12-03] MEDS ORDERED: LIDOCAINE HCL 4% 1 EACH PATCH TD SCH (09:00)
[2024-12-03] MEDS ORDERED: CLOPIDOGREL BISULFATE 75 MG TAB PO SCH (09:00)
--- NOTE | 2024-12-03 09:07 | NUR ---
UR CLINICAL REVIEW: 2 MN FOR VERSALUS-PER CHAIRMAN CEO MEETS INPT FOR [facility] WITH NEED FOR MONITORING MEDICARE INPT 12/02/24 @ 1043 ORDER MATCHES REG NO AUTH REQUIRED PER MEDICARE GUIDELINES DISCHARGE TO HOME WHEN STABLE. PATIENT AWAITING SURGICAL PROCEDURE FOR WRIST FX
--- NOTE | 2024-12-03 11:09 | NUR ---
Hourly rounding. Patient appears to be in a good mood, she is currenlty working with PT and OT. No request, water cup has been filled. and call light placed within reach
--- NOTE | 2024-12-03 11:20 | NUR ---
PT NOT AVAILABLE FOR VISIT. PROVIDED PRAYER.
--- NOTE | 2024-12-03 12:33 | NUR ---
Patient eating lunch, hob elevated. Patient is alert to self and place, pleasant with cares. Patient able to feed self, tolerating food well. Tylenol 650mg po admin at this time. Bed alarm intact. Left arm in sling, elevated on pillows, fiberglass roller intact.
[2024-12-03 12:48] LABS: THYROXINE FREE 1.3 ng/dL (0.9-1.7)
--- NOTE | 2024-12-03 13:15 | NUR ---
Spoke with Donna. We discussed her job when she worked at [employer] years ago. Pt states she worked their for 40 years. Pt has difficulty with word finding. I asked her if she is aware of this. She states she is having difficulty articulating. Her nephew and arrive as we are discussing this. He states this is not normal for Donna. We also discussed surgery is now on hold until next week as was concerned about Donna's mental status. Donna and I discussed plan for when she discharges. She would like to go home, but does not feel this will be possible. She lives alone and per nephew has been having increased falls. We discussed SNFS and [facility]. Discussed medicare will pay for a SNF for 20 days. She also has a secondary insurance. Pt declines to go to [facility], but is agreeable to [facility] in [place]. I will fax her chart to check for a bed next week. Family discussed plan for when pt leaves the SNF. I updated pt would need to pay for cg service in her home. Discussed POA and POLST form with pt and family. Pt has a POA she completed years ago and a POLST. It is unclear where these forms are. Fidel is the POA. We completed a new POLST as pt is a DNR with selective treatment. POLST placed on Dr. Kolb desesther to review.
--- NOTE | 2024-12-03 15:05 | NUR ---
Patient awake in bed watching tv, alert to self and place, intermittent confusion noted. Patient reports she is painful in left arm, tylenol recently admin. Left arm elevated above heart level. Patient remains close to RN station.
[2024-12-03] MEDS ORDERED: TRAMADOL HCL 50 MG TAB PO PRN (16:15)
[2024-12-03] MEDS ORDERED: OXYCODONE HCL 5 MG TAB PO PRN (16:45)
--- NOTE | 2024-12-03 16:56 | NUR ---
PATIENT GIVEN 4MG OF IV ZOFRAN, SALTINE CRACKERS, AND ONE 5MG OXYCODONE FOR 5/10 RIB PAIN.
--- NOTE | 2024-12-03 17:48 | NUR ---
PATIENT IN CHAIR AT THIS TIME. THIS MANAGER COMMERCIAL AMBULATED PATIENT TO BEDSIDE COMMODE AND THEN BACK TO CHAIR. THIS MANAGER COMMERCIAL ALSO CUT PATIENT DINNER UP FOR HER. CALL LIGHT WITHIN REACH, NO FURTHER NEEDS.
--- NOTE | 2024-12-03 18:05 | NUR ---
PATIENT IN BED AT THIS TIME. MARKET DEVELOPMENT MANAGER CHARTED VITALS AND I&O'S. CALL LIGHT WITHIN REACH, NO FURTHER NEEDS AT THIS TIME.
--- NOTE | 2024-12-03 19:30 | NUR ---
REPORT RECEIVED FROM DAYSCHANTELLE RN. PATIENT SITTING UPRIGHT IN CHAIR WITH EYES CLOSED, RESP EVEN AND UNLABORED. CALL LIGHT IN REACH.
--- NOTE | 2024-12-03 20:47 | NUR ---
PATIENT SITTING UPRIGHT IN CHAIR, REQUESTING TO STAY THERE AT THIS TIME. REPORTING 7/10 PAIN IN LEFT ARM, 0/10 IN RIBS. WOULD LIKE TO WAIT AT THIS TIME FOR PAIN MEDS. ASSESSMENT COMPLETED, SCHEDULED MEDS ADMIN, VS OBTAINED AND RECORDED. CALL LIGHT IN REACH.
[2024-12-03] MEDS ORDERED: GABAPENTIN 300 MG CAP PO SCH (21:00)
--- NOTE | 2024-12-03 23:10 | NUR ---
PATIENT GIVEN PRN MEDICATION FOR PAIN AND SLEEP. PATIENT ASSISTED BACK TO BED FROM CHAIR WITH 2X PERSON ASSIST. BED ALARM ON, CALL LIGHT IN REACH. ARM SUPPORTED WITH PILLOWS. NO FURTHER NEEDS IDENITIFED.
[2024-12-04] VITALS (11 sets, daily range): BP systolic 152–164; BP diastolic 58–88
--- NOTE | 2024-12-04 01:27 | NUR ---
CALL LIGHT ANSWERED. PT STATED SHE NEEDED TO HAVE A BM. MEAT SALES AND STORAGE MANAGER AND RN 2PA WITH FWW TO BATHROOM. PT UNABLE TO HAVE A BM AND FEELING NAUSOUS. PT ASSISTED BACK TO BED. PT ASSISTED INTO A BREIF. PT STATES NO FURTHER NEEDS AT THIS TIME. CALL LIGHT WITHIN REACH.
--- NOTE | 2024-12-04 02:21 | NUR ---
PATIENT RESTING WITH EYES CLOSED, RESP EVEN AND UNLABORED. NO NEEDS IDENTIFIED, CALL LIGHT IN REACH.
--- NOTE | 2024-12-04 04:27 | NUR ---
PATIENT RESTING IN BED WITH EYES CLOSED, RESP EVEN AND UNLABORED. BED ALARM ON, NO NEEDS IDENTIFIED, CALL LIGHT IN REACH.
[2024-12-04 05:25] LABS: BASOPHILS 0.4 % (0-2); EOSINOPHILS 0.6 % (0-6); HEMATOCRIT 32.2 % (35.0-50.0); HEMOGLOBIN 10.5 g/dL (12.0-18.0); LYMPHOCYTES 10.2 % (24-44); MCH 29.4 (27-36); MCHC 32.7 g/dl (30-36); MCV 90.1 fl (81-99); MONOCYTES 10.6 % (0-12); NEUTROPHILS 78.2 % (39-80); PLATELET COUNT 356 K/uL (140-440); RBC 3.57 M/ul (4.3-5.7); RDW 14.8 (10.5-15.0)
--- NOTE | 2024-12-04 05:27 | NUR ---
PATIENT RESTING IN BED. VS AND I&Os OBTAINED AND RECORDED. PATIENT 02 SAT 89% ON RA. PATIENT PLACED ON 2L NC. PATIENT O2 SAT 93% ON 2L NC. PATIENT DENIES FURTHER NEEDS. CALL LIGHT IN REACH. BED ALARM ON. FALL MATS IN PLACE.
[2024-12-04 05:36] LABS: ANION GAP 10.9 (7-21); BUN/CREATININE RATIO 30.08 (6.0-28.6); CREATININE, SERUM 1.23 mg/dL (0.55-1.02); MAGNESIUM 2.7 mg/dL (1.8-2.4); POTASSIUM 3.9 mmol/L (3.5-5.1)
--- NOTE | 2024-12-04 05:58 | NUR ---
SCHEDULED MEDICATION ADMINISTERED. PRN PAIN MEDICATION ADMINISTERED FOR 10/10 L ARM PAIN. NO FURTHER NEEDS. CALL LIGHT IN REACH.
--- NOTE | 2024-12-04 06:11 | NUR ---
PATIENT CALLED TO REQUEST PAIN MEDICATION. PATIENT INFORMED THAT THERE IS NOTHING AT THIS TIME THAT WE ARE ABLE TO GIVE HER. PATIENT REPORTED STOMACH PAIN WITH OXYCODONE EARLIER IN THE NIGHT. RN OFFERED ICE PACK OR HEAT PACK, PATIENT DECLINES. NO FURTHER NEEDS EXPRESSED, CALL LIGHT IN REACH.
--- NOTE | 2024-12-04 06:37 | NUR ---
TC TO DR. PEDRAZA. PATIENT REQUESTED SOMETHING ELSE FOR PAIN. INFORMED MD OF PATIENT REPORTING STOMACH DISCOMFORT LAST NIGHT FOLLOWING OXYCODONE. ORDERS RECEIVED.
[2024-12-04] MEDS ORDERED: HYDROmorphone HCL 2 MG TAB PO ONE (06:45)
--- NOTE | 2024-12-04 07:00 | NUR ---
PATIENT GIVEN PRN PAIN MEDICATION, DENIES FURTHER NEEDS. CALL LIGHT IN REACH.
--- NOTE | 2024-12-04 07:36 | NUR ---
MORNING REPORT RECIEVED FROM MARANDA JORDAN. PT LAYING IN BED WITH EYES CLOSED, PT CHEST RISE EQUAL BILAT. PT HAS CALL LIGHT IN REACH.
--- NOTE | 2024-12-04 07:47 | NUR ---
PT RESTING IN BED IN A SEMI-FOWLERS POSITION. PT DECLINES WARM WASH RAG. PT ALSO REFUSES TO GET UP TO CHAIR FOR BREAKFAST. PT STATES "I DON'T KNOW WHAT I WANT, I AM JUST TIRED". PT WANTING TO REST AT THIS TIME. ICE WATER PROVIDED. TRAY TABLE CLEANED UP. LANDIS CHECKED AND DRAINING WELL. BLANKET PLACED ON PT PER PT REQ. PT DENIES FURTHER NEEDS. CALL LIGHT IN REACH. FALL MATS IN PLACE.
--- NOTE | 2024-12-04 08:32 | NUR ---
pt in bed. XR in room assisting pt to wc.
--- NOTE | 2024-12-04 08:36 | NUR ---
phone call answered. soco nunez who is the pts neighbor requetsing to speak w pt. this general clerk spoke with patient and verbally got the okay to speak with soco. soco will call back in an hour to speak w/ pt d/t pt being off floor.
--- NOTE | 2024-12-04 08:37 | NUR ---
PT OFF FLOOR TO XR
--- NOTE | 2024-12-04 08:50 | NUR ---
PT BACK TO CHAIR FROM IMAGING. PT STATES SHE IS "JUST TIRED". PT LINENS CHANGED. CATHETER CARE COMPLETE. LANDIS EMPTIED OF 125ML OF CLEAR YELLOW URINE. RN IN ROOM. VITALS AND IS AND OS COMPLETE. RN AWARE PT DID NOT HAVE ANY PO INTAKE THIS AM. PT DENIES ANY NEEDS AT THIS TIME BESIDES JUST WANTING TO REST. DO NOT DISTURB SIGN PLACED ON DOOR W/ RN OK. CALL LIGHT IN REACH. CHAIR ALARM ON. FALL MATS IN PLACE.
[2024-12-04] MEDS ORDERED: CEFTRIAXONE SODIUM 1 GM in SODIUM CHLORIDE 0.9% 100 ML IV SCH (09:00)
--- NOTE | 2024-12-04 09:29 | NUR ---
in room to attempt to get pt in shower. RN in room. pt and this vmware architect make a plan to shower after IV infusion is complete. pt states that she will wait to have brief checked and changed until after the iv infusion is complete. pt shower set up and ready. pt denies needs at this time. call light in reach
[2024-12-04] MEDS ORDERED: HYDROmorphone HCL 2 MG TAB PO PRN (10:00)
--- NOTE | 2024-12-04 10:27 | NUR ---
PT SITTING UP IN CHAIR, PT HAS NO PAIN AT THIS TIME. PT IS COMFORTABLE AND HAS CALL LIGHT IN REACH.
--- NOTE | 2024-12-04 10:47 | NUR ---
PT NOT AVAILABLE FOR VISIT. PROVIDED PRAYER.
--- NOTE | 2024-12-04 11:14 | NUR ---
PT BACK IN BED FROM WORKING WITH PT. FALL MATS IN PLACED. BED IN LOWEST POSITION. CALL LIGHT IN REACH.
--- NOTE | 2024-12-04 11:28 | NUR ---
PATIENT STILL AGREEABLE TO SNF. NO OTHER CM NEEDS AT THIS TIME.
--- NOTE | 2024-12-04 12:09 | NUR ---
PATIENT IS CONFUSED AND RESTLESS DESPITE BEING REASSURED SEVERAL TIMES. CATHETER AND MARGOT CARE PERFORMED. PATIENT AMBULATED WITH PT, RETURNED TO BED ONCE DONE. FRESH ICE WATER PROVIDED. CALL LIGHT AND PERSONAL ITEMS ARE WITHIN REACH. NO OTHER CARES WERE REQUESTED.
--- NOTE | 2024-12-04 13:00 | NUR ---
PT AMBULATED FROM BED TO CHAIR WITH 1PA FWW. PT TOLERATED WELL, PT HAS NO PAIN AT THIS TIME AND HAS CALL LIGHT IN REACH.
--- NOTE | 2024-12-04 13:37 | NUR ---
FAXED PROG NOTE, PT NOTE TO [facility]. NO FUTHER CM NEEDS AT THIS TIME.
--- NOTE | 2024-12-04 14:00 | NUR ---
PT SITTING UP IN CHAIR, PT HAS NO CURRENT CONCERNS AT THIS TIME. PT HAS CALL LIGHT IN REACH.
--- NOTE | 2024-12-04 15:14 | NUR ---
PT SITTING IN CHAIR, PT CALLED AND REQIESTED A WARM BLANKET AND WAS VERY PLEASANT. PT HAS CALL LIGHT IN REACH AND NO CURRENT CONCERNS AT THIS TIME.
--- NOTE | 2024-12-04 16:20 | NUR ---
PT AMBULATED TO BSC TO HAVE A BM. LEAD GENERATION SPECIALIST CURRENTLY IN ROOM TO MONITOR FOR PT SAFETY. PT HAS CALL LIGHT IN REACH.
--- NOTE | 2024-12-04 16:28 | NUR ---
PT SITTING IN BED, PT KEEPS REMOVING CPOX PROBE BECAUSE ITS ANNOYING. PT AGREED TO LEAVE PROBE ON PT ALERT AND ORIENTED. PT HAS CALL LIGHT IN REACH.
--- NOTE | 2024-12-04 17:44 | NUR ---
PT SITTING UP IN CHAIR. 2L O2 NC IN PLACE PT HAS CPOX ON AND HAS NO CONCERNS AT THIS TIME. CALL LIGHT IN REACH
--- NOTE | 2024-12-04 19:25 | NUR ---
REPORT RECEIVED FROM CRISS RN. PATIENT SITTING UPRIGHT IN BED, SEMI FOWLERS. CAREGIVER AT BEDSIDE. CALL LIGHT IN REACH, BED ALARM ON.
--- NOTE | 2024-12-04 19:42 | NUR ---
PATIENT CALLED RN TO ROOM WITH CONCERNS ABOUT NOT HAVING BOWEL MOVEMENT FOR 2 DAYS. PATIENT ABDOMEN MILDLY DISTENDED, NON TENDER. ACTIVE BOWEL SOUNDS. NIO ORDER FOR BOWEL ROUTINE INITIATED.
[2024-12-04] MEDS ORDERED: BUDESONIDE 0.5 MG/2 ML VIAL INH SCH (20:00)
[2024-12-04] MEDS ORDERED: SENNOSIDES/DOCUSATE 1 EA TAB PO SCH (21:00)
--- NOTE | 2024-12-04 21:00 | NUR ---
DIRECTOR OBTAINED VITALS AND I&O. LANDIS EMPTIED. PT REQUESTING PAIN MEDS. RN NOTIFED. PT STATES NO FURTHER NEEDS AT THIS TIME. CALL LIGHT WITHIN REACH.
--- NOTE | 2024-12-04 21:58 | NUR ---
VS OBTAINED AND RECORDED. PRN AND SCHEDULED MEDICATIONS ADMINISTERED. PATIENT REPOSITIONED IN BED, PROVIDED WARM PACK FOR NECK DISCOMFORT. SUPPORTED ARM AND RIGHT SIDE WITH PILLOWS. PATIENT DECLINES OTHER NEEDS, CALL LIGHT IN REACH, BED ALARM ON. PROVIDER AWARE OF INITIATION OF BOWEL ROUTINE NIO AND ABD ASSESSMENT FINDINGS.
--- NOTE | 2024-12-04 23:22 | NUR ---
PATIENT RESTING WITH EYES CLOSED, RESP EVEN AND UNLABORED, CPOX AT BEDSIDE. NO NEEDS IDENTIFIED, CALL LIGHT IN REACH.
[2024-12-05] VITALS (10 sets, daily range): BP systolic 138–167; BP diastolic 58–80
--- NOTE | 2024-12-05 00:15 | NUR ---
pt CALLED STATING SHE IS TO HOT AND DIDN'T KNOW WHAT TO DO. THIS RN AND SERVICE COUNSELOR WENT IN RM TO HELP pt GET SITUATED. THE BLANKETS WERE TAKEN OFF OF THE pt FOR HER COMFORT. SHEET WAS LEFT FOR THE pt TO STAY COVERED. THE TEMP WAS LOWERED IN THE RM. pt WAS REPOSITIONED IN THE BED ON RIGHT SIDE. pt STATED SHE JUST WANTED TO GO HOME SO SHE COULD SLEEP HOW SHE WANTED BECAUSE SHE JUST CAN'T GET CONFORTABLE. THIS RN TRIED TO HELP pt ADJUST IN THE BED MUCH SHE COULD TO GET COMFORTABLE. CALL LIGHT WITHIN REACH. NO OTHER NEEDS AT THIS TIME.
--- NOTE | 2024-12-05 01:51 | NUR ---
IN ROOM TO RESPOND TO ALARMING CPOX, PATIENT REMOVED SPO2 MONITOR FROM FINGER. ELECTRONIC DEVICE MONITOR FINGER REPLACED, PATIENT INSTRUCTED TO LEAVE MONITOR IN PLACE. PATIENT ORIENTED TO PERSON AND TIME, NOT ORIENTED TO PLACE AT THIS TIME. ONCE PROMPTED THAT SHE IS IN THE HOSPITAL, SHE REMEMBERS. PATIENT REPOSITIONED, ARM AND SIDES SUPPORTED WITH PILLOWS. BED ALARM ON, NO FURTHER NEEDS. CALL LIGHT IN REACH. CPOX READING 92-93% ON RA.
--- NOTE | 2024-12-05 03:54 | NUR ---
RN CALLED TO ROOM, PATIENT REPORTS THAT SHE IS FEELING WARM. EXTRA BLANKETS REMOVED, TEMPERATURE IN ROOM ADJUSTED. PATIENT ANSWERED ALL ORIENTATION QUESTIONS CORRECTLY, A&O X3, INTERMITTENT FORGETFULNESS. BED ALARM ON, CALL LIGHT IN REACH.
--- NOTE | 2024-12-05 03:59 | NUR ---
MARIA DOLORES IS AWAKE FUSSING ABOUT THE ROOM TEMP, THE WIRES THAT ARE ATTACHED TO HER, AND HER HAIR. SHE IS CURRENTLY ON ROOM AIR.
--- NOTE | 2024-12-05 05:35 | NUR ---
VS OBTAINED AND RECORDED, LANDIS CATH EMPTIED. SCHEDULED MED ADMINISTERED. NO NEEDS IDENTIFIED. CALL LIGHT IN REACH
[2024-12-05 05:37] LABS: BASOPHILS 0.5 % (0-2); EOSINOPHILS 1.3 % (0-6); HEMOGLOBIN 10.5 g/dL (12.0-18.0); LYMPHOCYTES 14.9 % (24-44); MCH 30.2 (27-36); MCHC 33.7 g/dl (30-36); MCV 89.6 fl (81-99); MONOCYTES 10.1 % (0-12); NEUTROPHILS 73.2 % (39-80); PLATELET COUNT 406 K/uL (140-440); RBC 3.46 M/ul (4.3-5.7); RDW 15.2 (10.5-15.0)
[2024-12-05 05:47] LABS: ANION GAP 11.1 (7-21); BUN/CREATININE RATIO 31.37 (6.0-28.6); CALCIUM 8.9 mg/dL (8.5-10.1); CREATININE, SERUM 1.02 mg/dL (0.55-1.02); MAGNESIUM 2.5 mg/dL (1.8-2.4); POTASSIUM 4.1 mmol/L (3.5-5.1)
--- NOTE | 2024-12-05 06:57 | NUR ---
PATIENT UP TO CHAIR PER REQUEST WITH X2 PERSON ASSIST AND FWW. CHAIR ALARM ON. CPOX IN PLACE. PATIENT REQUESTING TO USE RESCUE INHALER, DENIES SOB. SPO2 READING 89%. 1L NC PLACED ON PATIENT. SPO2 INCREASED TO 93%. CALL LIGHT IN REACH.
--- NOTE | 2024-12-05 07:27 | NUR ---
REPORT RECEIVED FROM RN. YONIS JORDAN FROM RESPIRATORY THERAPY CURRENTLY IN WITH PATIENT, PATIENT IS UP IN RECLINER AT THIS TIME.
[2024-12-05] MEDS ORDERED: ALBUTEROL/IPRATROPIUM 3 ML NEB INH SCH (08:00)
--- NOTE | 2024-12-05 09:00 | NUR ---
PATIENT IS ORIENTED TO WHERE THEY ARE AND WHAT THEIR NAME IS BUT IS CONFUSED ABOUT DIRECTIONS AND OTHER ITEMS IN THE ROOM. THEY WERE ASSISTED TO THE COMMODE BUT HAD NO BOWEL MOVEMENT. RETURNED TO SITTING IN THEIR CHAIR. MARANDA JONES ENTERED THE EROOM.
--- NOTE | 2024-12-05 09:08 | NUR ---
MEDICATION ADMINISTERED, SEE MAR. ASSESSMENT COMPLETE. PT TRANSFERING FROM BSC TO RECLINER WITH MARCIO HANCOCK AND SBA WITH VERBAL CUES. PT UNSUCCESSFUL IN HAVING A BOWEL MOVEMENT AND NOT HAPPY ABOUT THIS. IN RECLINER PT IS RESTING WITH BLE ELEVATED AND L ARM ELEVATED ON A PILLOW. PT DENIES PAIN IN HER L ARM, REPORTING PAIN IN HER UPPER BACK ONLY RATED A 3/10. LIDOCAINE PATCH PLACED HERE. PT IS ALERT AND ORIENTED, STATES [facility] IS [place] [facility]" AND SHE "SHOULDN'T BE HERE". PTs L ARM IS IN A SPLINT FRONT FINGERS TO ELBOW, WITH THREE FINGERS VISIBLE. ALL THREE FINGERS HAVE ADEQUATE CAPILLARY REFILL AND ARE WARM TO TOUCH. PT DISAGREEABLE WITH KEEPING HER L ARM ELEVATED ON A PILLOW, BUT LEAVES IT IN PLACE. PT LUNG SOUNDS ARE CLEAR IN BUL, DIMINISHED IN BLL, WITH 1LNC AND CPOX IN PLACE. PT HAS OCCASIONAL, CONGESTED COUGH. DENIES SHORTNESS OF BREATH OR CHEST DISCOMFORT. LANDIS CATH HAS STAT LOCK IN PLACE, FREELY DRAINING CLEAR, YELLOW URINE TO SIDE OF CHAIR. WARM BLANKETS PROVIDED. MARCIO HANCOCK RETURNS TO TAKE PTs VITAL SIGNS. MARCIO REMAINS IN ROOM AT THIS TIME.
--- NOTE | 2024-12-05 09:19 | NUR ---
PATIENT UP IN CHAIR. NURSE DOING ASSESSMENT. PATIENT STATES SHE WASNT SURE IF SHE HAD A GOOD NIGHT OR NOT. PATIENT STILL WILLING TO GO TO SNF AT TIME OF DISCHARGE. NOTES BEING FAXED TO [facility]. NO FUTHER CM NEEDS AT THIS TIME.
--- NOTE | 2024-12-05 09:35 | NUR ---
LANDIS CATH REMOVED ORDERED, PATIENT TOLERATES REMOVAL WELL. PT REMAINS UP IN RECLINER WITH BLE ELEVATED, L ARM ELEVATED ON PILLOW, AND IV ABX INFUSING TO R AC WNL. NO REQUESTS, CALL LIGHT AND PERSONAL BELONGINGS IN REACH.
[2024-12-05] MEDS ORDERED: MAGNESIUM CITRATE 300 ML BTL PO ONE (10:15)
[2024-12-05] MEDS ORDERED: bisacodyL 10 MG SUPP PR ONE (10:15)
--- NOTE | 2024-12-05 10:54 | NUR ---
ASSISTED PATIENT TO BATHROOM AND BACK TO CHAIR. CHANGED GOWN. PILLOWS IN USE. CALL LIGHT IN REACH. CHAIR ALARM SET.
--- NOTE | 2024-12-05 11:41 | NUR ---
PT AMBULATES WITH FWW AND 2PA FROM RECLINER TO RESTROOM TO ATTEMPT TO VOID. PT IS UNSUCCESSFUL. PT AMBULATES TO BED AND ASSISTED TO LAY ON HER LEFT SIDE. SUPPOSITORY ADMINISTERED, PT TOLERATES WELL, HARD STOOL FELT IN RECTUM. PT REPORTS SHE IS CHRONICALLY CONSTIPATED AT HOME BUT IS UNSURE WHY. PT IS CONVERSING ABOUT HER FATHER WITH THIS RN AND MARCIO HANCOCK. PT IS ON ROOM AIR WITH CPOX IN PLACE AT BEDSIDE, NO SOB OR INCREASED WORK OF BREATHING NOTED OR REPORTED. CALL LIGHT AND PERSONAL BELONGINGS IN REACH.
--- NOTE | 2024-12-05 12:23 | NUR ---
PATIENT LUNCH BEING SET UP BY MARCIO HANCOCK. MARCIO REPORTS THAT PATIENT HAS HAD A BOWEL MOVEMENT ON THE BEDSIDE COMMODE. PATIENT IS REPORTING PAIN IN HER L ARM. CALL LIGHT AND PERSONAL BELONGINGS IN REACH.
--- NOTE | 2024-12-05 12:31 | NUR ---
PRN PAIN MEDICATION ADMINISTERED, SEE NOV. PT RATES HER L ARM PAIN A 4/10 AND STATES "IT'S MORE ANNOYING THAN ANYTHING." PT IS IN BED WITH HOB ELEVATED EATING LUNCH AND WATCHING TELEVISION AT THIS TIME. FRESH ICE WATER PROVIDED. CALL LIGHT AND PERSONAL BELONGINGS IN REACH.
--- NOTE | 2024-12-05 13:35 | NUR ---
PROG NOTE SENT TO [facility]
--- NOTE | 2024-12-05 14:28 | NUR ---
CLARIFIED WITH PATIENT THAT SHE DOES NEED A GLUTEN-FREE DIET. IF SHE EATS GLUTEN SHE GETS BLISTERS, IT'S NOT CELIAC DISEASE. SHE STATES SHE DOESN'T LIKE COW'S MILK, USES ALMOND MILK AT HOME. CAN'T SWALLOW REGULAR RICE, NOT SURE IF SHE LIKES CREAM OF RICE HOT CEREAL. LIKES POTATOES, YOGURT, AND EGGS. USUALLY EATS GF WAFFLES FOR BREAKFAST AT HOME, SOMETIMES WITH GF SAUSAGE LINKS. THESE PREFERENCES ARE IN [employer] AND HER DIET IS NOW GLUTEN-RESTRICTED.
--- NOTE | 2024-12-05 15:36 | NUR ---
BLADDER SCAN SHOWS 208ML OF URINE. IMMEDIATELY UPON FINISHING SCAN PATIENT STATES "I NEED TO PEE!". PATIENT ASSISTED TO AMBULATE WITH FWW AND VERBAL CUEING TO RESTROOM. PATIENT VOIDS, BUT MISSES HAT. MARCIO HANCOCK ASSISTS PATIENT WITH MARGOT-CARE AND ASSISTS PATIENT BACK TO BED. SECOND BLADDER SCAN SHOWS 0ML OF URINE. PATIENT IS MORE CONFUSED THIS AFTERNOON THAN THIS MORNING. SHE IS ORIENTED TO SELF, PLACE, AND DATE BUT CANNOT TELL THIS RN WHY SHE IS IN THE HOSPITAL OR WHO THIS RN IS. PATIENT BEGINS TELLING A STORY ABOUT A BACKDOOR, CONVERSATION IS WANDERING AND PATIENT OFTEN SEES SOMETHING ON THE TELEVISION AND STOPS MID-SENTENCE TO COMMENT ON THE TELEVISION. PATIENT IS MILDLY IRRITABLE BUT LESS SO THAN THIS AM, BUT MORE CONFUSED. PATIENT DENIES ANY PAIN AT THIS TIME. PATIENT LUNG SOUNDS ARE CLEAR TO BUL, DIMINISHED IN BLL. PATIENT IS ON ROOM AIR WITH CPOX AT CHAIR SIDE. PATIENT DENIES SHORTNESS OF BREATH OR DISCOMFORT. IV TO R WRIST FLUSHES 10ML NS WNL. MARCIO HANCOCK REMAINS IN ROOM TO ASSIST PATIENT FROM BED TO RECLINER. PATIENT PROVIDED WITH TWYLA MARCI AND ENCOURAGED TO DRINK MORE FLUIDS. NO REQUESTS, CALL LIGHT AND PERSONAL BELONGINGS IN REACH.
[2024-12-05] MEDS ORDERED: POLYETHYLENE GLYCOL 3350 1 PACKET PO ONE (16:45)
--- NOTE | 2024-12-05 17:10 | NUR ---
MEDICATION ADMINISTERED, SEE MAR. PATIENT'S CAREGIVER IS PRESENT IN ROOM AND ATTEMPTING TO ASSIST PATIENT IN SITTING ON THE EDGE OF HER BED. DISCUSSED WITH CAREGIVER THAT WE ARE NOT GOING TO HAVE PATIENT SITTING ON THE EDGE OF THE BED RIGHT NOW DUE TO HER CONFUSION. CAREGIVER EXPRESSES UNDERSTANDING. PATIENT IS CONFUSED, TALKING ABOUT HER BATHROOM AT HOME WELL THE BACK DOOR TO HER HOUSE. DINNER TRAY ARRIVES, PT IS ASSISTED TO SIT UP IN BED WITH DINNER TRAY OVER HER LAP. PATIENT BEGINS TO EAT HER DINNER, CAREGIVER REMAINS IN ROOM. BED ALARM ON, FALL MATS IN PLACE, CALL LIGHT IN REACH.
--- NOTE | 2024-12-05 17:40 | NUR ---
PATIENT'S NEPHEW CALLED IN DISTRESS PATIENT HAS CALLED HIM AND IS UPSET BECAUSE SHE IS REPORTING THE BATHROOM HAS BEEN CHANGED AROUND AND THE TILES ARE DIFFERENT. PATIENT'S NEPHEW EDUCATED ON CONFUSION ASSOCIATED WITH [facility] AND THE PREVIOUSLY DISCUSSED PLAN TO MOVE PATIENT TO A NEW ROOM TO ALLOW FOR NATURAL LIGHT. NEPHEW VERBALIZES UNDERSTANDING.
--- NOTE | 2024-12-05 18:00 | NUR ---
PATIENT IS UP IN RECLINER AND CONFUSED. SHE IS DISCUSSING BATHROOM TILES AND IS CONVENCED SOMEONE HAS CHANGED OR MOVED THE ROOM AROUND. PATIENT'S CAREGIVER PRESENT IN ROOM ATTEMPTING TO CALM PATIENT DOWN. PATIENT IS INCONSOLABLE AND IS USING HER CELL PHONE TO SPEAK WITH HER NEPHEW ABOUT THE BATHROOM. PATIENT DENIES NEEDING TO USE THE RESTROOM AT THIS TIME. PATIENT BELONGINGS ARE MOVED TO NEW ROOM (120 TO 111) AND THEN PATIENT IS MOVED WHILE SITTING IN RECLINER TO NEW ROOM. PATIENT IS ATTEMPTING TO STAND REPEATEDLY FROM RECLINER WHILE BEING MOVED. THIS RN AND CAREGIVER ENSURE SHE STAYS SEATED. PATIENT INTRODUCED TO NEW ROOM, CAREGIVER REMAINING AT BEDSIDE. PATIENT BECOMES VERY UPSET AND REFERS TO THIS RN A "FUCKING LITTLE BITCH". BLE ELEVATED IN RECLINER, WARM BLANKET PROVIDED. MARCIO BENSON REMAINS IN ROOM WITH PATIENT 1:1. PATIENT IS STILL DISCUSSING THE TILES IN THE ROOM BEING DIFFERENT, BUT APPEARS TO BE CALMING DOWN. MARCIO BENSON IN ROOM.
--- NOTE | 2024-12-05 18:21 | NUR ---
MD UPDATED ON PATIENT'S CHANGE IN CONDITION. MD GIVES VERBAL ORDERS VERIFIED WITH READBACK. ORDERS PLACED. PATIENT REMAINS UP IN HER RECLINER WITH HER CAREGIVER PRESENT.
--- NOTE | 2024-12-05 18:26 | NUR ---
PATIENT REMAINS UP IN RECLINER WITH BLE ELEVATED. SHE IS STILL CONFUSED AND BELIEVES THE TILES IN HER ROOM HAVE CHANGED, BUT SHE IS NO PLEASANTLY COMMUNICATING WITH THIS RN. HER CAREGIVER REMAINS ON THE COUCH IN HER ROOM. NO REQUESTS AT THIS TIME, CALL LIGHT AND PERSONAL BELONGINGS IN REACH.
--- NOTE | 2024-12-05 18:37 | NUR ---
PATIENT CALLED FOR BATHROOM ASSIST. THEY WERE EXTREMELY CONFUSED AND BECAME INCREASINGLY AGITATED. RNS ROBERT AND GREGG CONSULTED WITH AMUSEMENT RIDE INSPECTOR ELVIN AND MADE THE DECISION TO TRANSFER THE PATIENT TO [facility] AT 1800. PATIENT IS CURRENTLY CALMER AND SITTING UP IN THEIR CHAIR WITH CAREGIVER IN THE ROOM.
--- NOTE | 2024-12-05 19:30 | NUR ---
REPORT RECEIVED FROM ROBERT LOW. pt SITTING IN THE CHAIR. pt WANTED TO USE THE BR. 2PA WITH THE FWW TO THE BR. pt BACK TO BED. CALL LIGHT WITHIN REACH. pt DENIES ANY OTHER NEEDS AT THIS TIME.
--- NOTE | 2024-12-05 20:30 | NUR ---
ASSESSMENT DONE. SCHEDULED MEDS ADMINISTERED. pt LUNG SOUNDS ARE CLEAR. VITAL SIGNS DONE. pt POSITIONED ON HER LEFT SIDE WITH PILLOW UNDER RIGHT SIDE. pt DENIES PAIN ANY THIS TIME. pt DENIES ANY NEEDS AT THIS TIME. CALL LIGHT WITHIN REACH.
[2024-12-05] MEDS ORDERED: MELATONIN 3 MG TAB PO SCH (21:00)
--- NOTE | 2024-12-05 21:54 | NUR ---
IN RM TO CHECK ON pt. pt HEAD LAID BACK. TV TURNED OFF. pt DENIES ANY OTHER NEEDS AT THIS TIME. CALL LIGHT WITHIN REACH. RR EVEN AND UNLABORED.
[2024-12-05] MEDS ORDERED: QUETIAPINE FUMARATE 25 MG TAB PO ONE (22:45)
--- NOTE | 2024-12-05 23:30 | NUR ---
THIS RN CALLED MD DUE TO pt GETTING INCREASINGLY CONFUSED AND GETTING AGITATED AT THE STAFF. pt CURSING AND CALLING THE STAFF NAMES. pt ALSO YELLING AT STAFF TO GET A KNIFE SO SHE CAN "CUT THE OBITUARIES OUT OF THE PAPER." NEW ORDERS PLACED AND VERIFIED WITH REPEAT BACK METHOD.
[2024-12-05] MEDS ORDERED: DICLOFENAC 1% TOPICAL GEL TOP PRN (23:45)
[2024-12-06] VITALS (10 sets, daily range): BP systolic 141–162; BP diastolic 69–94
--- NOTE | 2024-12-06 02:21 | NUR ---
pt RESTING IN THE BED WITH EYES CLOSED. RR EVEN AND UNLABORED. CALL LIGHT WITHIN REACH.
--- NOTE | 2024-12-06 03:47 | NUR ---
MARIA DOLORES REFUSES TO LEAVE THE CPOX SPECIAL INVESTIGATOR HER FINGER, SO CONTINUOUS CPOX WAS DISCONTINUED AND SPOT CHECK PUT INTO EFFECT.
--- NOTE | 2024-12-06 04:59 | NUR ---
pt RESTING IN THE BED WITH EYES CLOSED. RR EVEN AND UNLABORED. CALL LIGHT WITHIN REACH.
[2024-12-06 05:18] LABS: BASOPHILS 0.5 % (0-2); EOSINOPHILS 1.2 % (0-6); HEMATOCRIT 31.2 % (35.0-50.0); HEMOGLOBIN 10.3 g/dL (12.0-18.0); MCH 29.4 (27-36); MCHC 32.9 g/dl (30-36); MCV 89.1 fl (81-99); MONOCYTES 11.2 % (0-12); NEUTROPHILS 69.1 % (39-80); PLATELET COUNT 456 K/uL (140-440); RDW 14.7 (10.5-15.0)
[2024-12-06 05:37] LABS: ANION GAP 15.3 (7-21); BUN/CREATININE RATIO 26.66 (6.0-28.6); CALCIUM 9.2 mg/dL (8.5-10.1); CREATININE, SERUM 1.05 mg/dL (0.55-1.02); MAGNESIUM 2.5 mg/dL (1.8-2.4); POTASSIUM 4.3 mmol/L (3.5-5.1)
--- NOTE | 2024-12-06 05:37 | NUR ---
IN RM TO DO VITAL SIGNS AND ASSESSMENT. SCHEDULED MEDS ADMINISTERED. pt UP TO THE BSC. pt INCONTINENT. pt DENIES ANY OTHER NEEDS AT THIS TIME. CALL LIGHT WITHIN REACH.
--- NOTE | 2024-12-06 07:27 | NUR ---
MORNING REPORT RECIEVED FROM MARANDA MARTINEZ. PT LAYING IN BED WITH EYES CLOSED CHEST RISE EQUAL BILAT. PT HAS CALL LIGHT IN REACH.
--- NOTE | 2024-12-06 08:33 | NUR ---
PATIENT IS STILL GROGGY BUT RESPONDED TO QUESTIONS. STATED THEY WANTED TO SLEEP. CAREGIVER AND RN JESSICA IN THE ROOM. CALL LIGHT AND PERSONAL ITEMS ARE WITHIN REACH.
--- NOTE | 2024-12-06 09:05 | NUR ---
PATIENT ASKED FOR BATHROOM ASSIST BUT WAS UNABLE TO RESPOND TO DIRECTIONS TO GET UP TO THE BSC. MARANDA LOPEZ DECIDED TO PLACE A PUREWICK FOR SAFETY. PATIENT'S BRIEF WAS CHANGED, MARGOT CARE PERFORMED, AND PUREWICK WAS PLACED AT 0900.
--- NOTE | 2024-12-06 09:55 | NUR ---
PT REPORTED ABD PAIN, PT ABD IS DISTENDED IN THE UPPER QUADRANTS AND PT BOWEL TONES ARE ABSENT IN THE RLQ. MD PEDRAZA WAS MADE AWARE AND ORDERED A ABD XRAY. PT HAS CALL LIGHT IN REACH.
--- NOTE | 2024-12-06 10:45 | NUR ---
MD PEDRAZA SAW THE PT, MD PEDRAZA SPOKE WITH THE PT ABOUT AN NG TUBE, PT WAS AGREEABLE AT THIS TIME. PT HAS CALL LIGHT IN REACH.
--- NOTE | 2024-12-06 13:11 | NUR ---
1500ML SOAP SUDS ENEMA ADMINISTERED ORDERED. PATIENT IS POSITIONED ON HER RIGHT SIDE IN BED DUE TO HER LEFT ARM INJURY. PATIENT TOLERATES THE ENEMA WELL, BUT IS UNABLE TO HOLD ONTO FLUID FOR ANY LENGTH OF TIME. SEVERAL SMALL, HARD BROWN COLOURED STOOL ARE FLUSHED OUT. PATIENT REMAINS ON HER RIGHT SIDE AT THIS TIME, ENCOURAGED TO HOLD ANY FLUID THAT SHE CAN. PATIENT REPORTS SHE DOES NOT FEEL ABLE TO HOLD ANYTHING IN. MARANDA KIDD ASSISTED IN ADMINISTERING ENEMA AND TALKING WITH PATIENT DURING ADMINISTRATION. THIS RN REMAINS IN THE ROOM AT THIS TIME.
--- NOTE | 2024-12-06 13:27 | NUR ---
PATIENT PASSES MEDIUM SOFT BOWEL MOVEMENT IN BED FOLLOWING SOAP SUDS ENEMA ADMINISTRATION. PATIENT IS REQUESTING TO SIT ON THE BSC. PATIENT ASSISTED IN TRANSFER TO BSC WITH THIS RN AND MARANDA KIDD. MODERATE ASSIST USED IN STANDING PATIENT UP, VERBAL CUES ONLY IN GETTING PATIENT TO TURN AND SIT ON BSC. PATIENT REMAINS ON BSC AT THIS TIME, THIS RN REMAINS IN ROOM.
--- NOTE | 2024-12-06 13:48 | NUR ---
PATIENT HAS SMALL, SOFT BOWEL MOVEMENT IN BSC AND A LARGE VOID. MARGOT-CARE PROVIDED, NEW BRIEF APPLIED. PATIENT ASSISTED BACK TO BED. PATIENT CLOSES EYES TO REST. FALL MATS IN PLACE, BED ALARM ON, CALL LIGHT IN REACH.
--- NOTE | 2024-12-06 13:58 | NUR ---
GIVES VERBAL PHONE ORDER, VERIFIED WITH READBACK. ORDER PLACED.
[2024-12-06] MEDS ORDERED: MAGNESIUM CITRATE 300 ML BTL PO ONE ×2 (14:00→19:45)
--- NOTE | 2024-12-06 14:37 | NUR ---
PT LAYING IN BED, PT REFUSES TO DRINK MAG CITRATE, MEDICATION LEFT ON PT TABLE AND WILL CHECK BACK SOON WITH PT. PT HAS CALL LIGHT IN REACH.
--- NOTE | 2024-12-06 16:27 | NUR ---
PT LAYING IN BED WITH EYES CLOSED CHEST RISE EQUAL BILAT. PT HAS CALL LIGHT IN REACH.
--- NOTE | 2024-12-06 17:49 | NUR ---
PT LAYING IN BED, PT SENIOR SVP IN ROOM. PT JUST HAS PUREWICK PLACED BY [place], PT TOLERATED WELL. PT HAS NO COCNERNS AT THIS TIME CALL LIGHT IN REACH.
--- NOTE | 2024-12-06 19:34 | NUR ---
REPORT RECEIVED FROM DAY SHIFT RN. PT LYING IN BED ALERT. FAMILY AT BEDSIDE. NO NEEDS AT THIS TIME. WHITE BOARD UPDATED. CALL LIGHT IN REACH. BED ALARM FOR SAFETY.
[2024-12-06] MEDS ORDERED: ALBUTEROL SULFATE 0.083% 3 ML VIAL INH PRN (20:00)
--- NOTE | 2024-12-06 20:46 | NUR ---
WITH THE APPROVAL OF THE DOCTOR (VERBAL), DUE TO MARIA DOLORES'S REFUSAL TO PARTICIPATE IN RESPIRATORY BREATHING TREATMENTS AND CPT...THEY WERE DISCONTINUED AND A PRN ALBUTEROL ORDER WAS PLACED.
[2024-12-06] MEDS ORDERED: MAGNESIUM CITRATE 300 ML BTL ONE (21:53)
--- NOTE | 2024-12-06 22:30 | NUR ---
EVENING ASSESSMENT COMPLETE. SCHEDULED MEDS ADMIN PER EMAR. PT REPORTS PAIN IN LEFT ARM, UNABLE TO PROVIDE NUMBER. PRN FOR PAIN ADMIN PER EMAR. PT UP TO BSC TO VOID AND ATTEMPT BM WITH NO RESULTS. STAFF ASSIST WITH MARGOT CARE. 2PA BACK TO BED. GAIT WEAK. PT WITH DIFFICULTY FOLLOWING DIRECTIONS. PT ORIENTED X 3 AT THIS TIME. NO FURTHER NEEDS AT THIS TIME. BED ALARM FOR SAFETY. CALL LIGHT IN REACH.
[2024-12-07] VITALS (10 sets, daily range): BP systolic 137–150; BP diastolic 48–65
--- NOTE | 2024-12-07 01:16 | NUR ---
PT RESTING IN BED WITH EYES CLOSED. RESPIRATIONS EVEN. CALL LIGHT IN REACH. BED ALARM FOR SAFETY.
--- NOTE | 2024-12-07 03:02 | NUR ---
PT IN BED RESTING WITH EYES CLOSED. RESPIRATIONS EVEN. BED ALARM IN PLACE. CALL LIGHT IN REACH.
--- NOTE | 2024-12-07 04:25 | NUR ---
PT RESTING IN BED WITH EYES CLOSED. RESPIRATIONS EVEN. BED ALARM IN PLACE. CALL LIGHT IN REACH.
[2024-12-07 05:30] LABS: BASOPHILS 0.9 % (0-2); EOSINOPHILS 2.9 % (0-6); HEMATOCRIT 32.2 % (35.0-50.0); HEMOGLOBIN 10.7 g/dL (12.0-18.0); MCH 29.7 (27-36); MCHC 33.4 g/dl (30-36); MCV 89.1 fl (81-99); MONOCYTES 10.6 % (0-12); NEUTROPHILS 66.6 % (39-80); PLATELET COUNT 550 K/uL (140-440); RBC 3.61 M/ul (4.3-5.7); RDW 14.9 (10.5-15.0)
--- NOTE | 2024-12-07 05:30 | NUR ---
PT UP TO BSC WITH 2PA TO VOID. PT INCONTINENT OF URINE WELL. STAFF ASSIST WITH MARGOT CARE. CLEAN BRIEF PROVIDED. PT BACK TO BED. VS AND I&O OBTAINED. PT REPORTS LEFT SHOULDER/WRIST PAIN. PRN FOR PAIN ADMIN PER EMAR. SCHEDULED MEDS ADMIN. LAB IN FOR MORNING DRAW. BED ALARM IN PLACE. CALL LIGHT IN REACH.
[2024-12-07 05:38] LABS: ANION GAP 12.5 (7-21); BUN/CREATININE RATIO 30.7 (6.0-28.6); CALCIUM 9.6 mg/dL (8.5-10.1); CREATININE, SERUM 1.27 mg/dL (0.55-1.02); MAGNESIUM 4.9 mg/dL (1.8-2.4); POTASSIUM 4.5 mmol/L (3.5-5.1)
[2024-12-07] MEDS ORDERED: LIDOCAINE 2% VISCOUS 6 ML SYR TOP ONE (06:00)
--- NOTE | 2024-12-07 06:23 | NUR ---
UPDATED REGARDING URINARY RETENTION AND ABD ASSESSMENT. NEW TELEPHONE ORDERS RECEIVED VERIFIED WITH READBACK METHOD. 16F LANDIS PLACED FOLLOWING STERILE PROCEDURE BY MARTY RN WITH RETURN ON 950 ML CONCENTRATED URINE. PT ROBLES WELL. NO FURTHER NEEDS. BED ALARM IN PLACE. CALL LIGHT IN REACH.
--- NOTE | 2024-12-07 07:18 | NUR ---
MORNING REPORT RECIEVED FROM MARANDA DORANTES. PT LAYING IN BED, PT IS ORIENTED X3 PT HAS LANDIS IN PLACE AND HAS BED ALARM ON FOR PT SAFETY. PT HAS CALL LIGHT IN REACH.
[2024-12-07] MEDS ORDERED: LACTATED RINGER'S 1,000 ML IV SCH (07:30)
--- NOTE | 2024-12-07 08:05 | NUR ---
HOURLY ROUNDING. BOARD HAS BEEN UPDATED AND CALL LIGHT HAS BEEN PLACED WITHIN REACH. NO REQUEST FROM PATIENT AT THIS TIME
--- NOTE | 2024-12-07 08:57 | NUR ---
PT SITTING IN BED, PT IN ROOM WITH RT. PT IS NOW NPO PER MD ORDERS FOR POSSIBLE ILEUS. PT SITTING UP IN BED WITH CURTAIN OPEN FOR PT SAFETY.
[2024-12-07] MEDS ORDERED: LACTULOSE 20 GM/30 ML CUP PO SCH (09:15)
--- NOTE | 2024-12-07 09:58 | NUR ---
PATIENT GIVEN PO MEDS, ORAL LACTULOSE. PATIENT IS UP TO CHAIR AFTER WALKING WITH PHYSICAL THERAPY. PATIENT WAS ABLE TO AMBULATE ENTIRE HALLWAY WITH FWW AND SBA.
--- NOTE | 2024-12-07 11:28 | NUR ---
PT SITTING UP IN CHAIR, PT WORKED WITH PT TODAY AND WALKED 1 LAP AROUND MED/SURG UNIT. PT TOLERATED WELL, PT IS VERY TIRED AFTER PT AND IS NOW RESTING. PT AGREED TO ENEMA ONE SHE WAKES UP FROM NAP. PT HAS CALL LIGHT IN REACH.
--- NOTE | 2024-12-07 13:47 | NUR ---
PT AMBULATED FROM CHAIR TO BED, PT SAT ON BSC AND DID NOT HAVE A BM. PT ABD IS NON TENDER BUT MILD DISTENTION IS NOTED. PT HAS NO PAIN AT THIS TIME AND IS AGREEABLE TO ENEMA.
--- NOTE | 2024-12-07 14:55 | NUR ---
PT RECIEVED AN SOAP/SUDS ENEMA, PT TOLERATED 1L WELL, PT THEN HAD 2 LARGE BMS IN BSC. PT STATES SHE FEELS BETTER BUT IS TIRED. PT RETURNED TO BED, PIPELINE ENGINEER CURRENTLY IN ROOM. PT HAS CALL LIGHT IN REACH.
--- NOTE | 2024-12-07 16:19 | NUR ---
PT US GUIDED IV IN RIGHT AC, WAS DC'D (SEE VASCULAR ACCESS). NETBACKUP ADMINISTRATOR TIA WAS ABLE TO START A NEW US GUIDED IV IN THE RIGHT UPPER ARM 20G, 2.5IN LENGTH. PT TOLERATED WELL AND HAS FLUIDS RUNNING AT THIS TIME. PT HAS CALL [facility] IN REACH.
--- NOTE | 2024-12-07 17:38 | NUR ---
PT LAYING IN BED, PT HAS MANAGEABLE PAIN AT THIS TIME. PT HAS CAREGIVER IN ROOM AND HAS NO CURRENT CONCERNS AT THIS TIME. PT CALL [facility] IN REACH.
--- NOTE | 2024-12-07 18:30 | NUR ---
PT LAYING IN BED, PT HAS NO COMPLAINTS AT THIS TIME, PT IS EATING DINNER AT THIS TIME WITH WRINGER MACHINE OPERATOR IN ROOM. PT HAS CALL [facility] IN REACH.
--- NOTE | 2024-12-07 21:29 | NUR ---
Pt awake, alert and oriented. on room air. lungs clear chyna at bases. no cough. abd large distended more on R upper side than L or lower abd. ROBIN. having liquid stools, incontinent. skin care done. On senna, lactulose. f/c patent, draining small amounts of yellow urine. f/c care done. clean attends in place. turned and repositioned. IVf infusing w/o problems RAC. L wrist covered with janay bandage and sling in place, ivan to area, declines to have pillow for elevation. Helpful with repositioning.
--- NOTE | 2024-12-07 22:12 | NUR ---
incontinent of large amount of semiliquid bm. skin care done, clean attends. gown changed. procedure explained cooperative. L arm sling in place, pillow applied lightly for elevattion, ice to area. f/c patent.
--- NOTE | 2024-12-07 23:31 | NUR ---
RESTING, EYES CLOSED, MOVES R ARM, L ARM SLING IN PLACE, LIGHTLY ELEVATED W PILLOW, ICE TO AREA, F/C PATENT
[2024-12-08] VITALS (10 sets, daily range): BP systolic 136–174; BP diastolic 56–76
--- NOTE | 2024-12-08 00:19 | NUR ---
npo as per new orders
--- NOTE | 2024-12-08 03:22 | NUR ---
resting, eyes closed, no ss/x respiratory distress. IVF ainfusing w/o problems, f/c patent, no further loose stools at this time
[2024-12-08 05:27] LABS: BASOPHILS 0.7 % (0-2); EOSINOPHILS 7.5 % (0-6); HEMATOCRIT 27.8 % (35.0-50.0); HEMOGLOBIN 9.2 g/dL (12.0-18.0); LYMPHOCYTES 18.6 % (24-44); MCH 29.9 (27-36); MCHC 33.3 g/dl (30-36); MCV 89.9 fl (81-99); MONOCYTES 8.7 % (0-12); NEUTROPHILS 64.5 % (39-80); PLATELET COUNT 485 K/uL (140-440); RBC 3.09 M/ul (4.3-5.7); RDW 14.8 (10.5-15.0)
--- NOTE | 2024-12-08 05:29 | NUR ---
Awakens easily, on room air, cooperative with blood draws and vitals. Upper mid Right abd firm, non tender, celestine. lower abd softer. f/c patent drainingd dark yellow urine. Repositioned up in bed. Sling L arm in place, dressing no changes. Continue to encourage to elevated arm, ice remoed her requets right now. Irritable but cooperative and redirectable. All cares explained. C/o L whoulder and wrist pain after repositioning. Medicated with Tylenol and sips of water. Aware of NPO status, oral care done. cooperative. Continues to resinofrce reminders of NPO
[2024-12-08 05:38] LABS: ANION GAP 12.6 (7-21); BUN/CREATININE RATIO 31.77 (6.0-28.6); CREATININE, SERUM 1.07 mg/dL (0.55-1.02); MAGNESIUM 2.8 mg/dL (1.8-2.4); POTASSIUM 3.6 mmol/L (3.5-5.1)
--- NOTE | 2024-12-08 07:13 | NUR ---
MORNING REPORT RECIEVED FROM MARANDA SOLO. PT LAYING IN BED AWAKE AND ALERT, PT DOES NOT COMPLAIN OF ANY PAIN AT THIS TIME PT HAS CALL LIGHT IN REACH.
--- NOTE | 2024-12-08 08:46 | NUR ---
UPDATES SENT TO [facility]
--- NOTE | 2024-12-08 09:23 | NUR ---
PT SITTING UP IN CHAIR, PT HAS ANOTHER BM THIS MORNING IN THEIR BED, BED CLEANED AND MOVED TO CHAIR AFTER BREAKFAST, PT LEFT ARM ELEVATED AND HAS NO CONCERNS AT THIS TIME. PT HAS CALL LIGHT IN REACH. DIESEL MECHANIC HELPER IN ROOM CURRENTLY.
--- NOTE | 2024-12-08 10:35 | NUR ---
INTO SEE PATIENT. PATIENT STATES "WHERE IS THE ORTHO SURGEON." REASSURED PATIENT THAT WE ARE WORKING ON IT. PATIENT STILL HAS PENDING PLACEMENT AT [facility]. NO FUTHER NEEDS FROM .
--- NOTE | 2024-12-08 10:49 | NUR ---
PT SITTING UP IN CHAIR, PT HAS CONTINUED TO HAVE MULTIPLE BM. PT HAS NO PAIN AT THIS TIME, AND IS WAITING TO SEE MD DHILLON AT THIS TIME. PT HAS RIGHT ARM ELEVATED AT HEART LEVEL AND IS NPO AT THIS TIME. PT HAS CALL LIGHT IN REACH.
--- NOTE | 2024-12-08 11:39 | NUR ---
PT SITTING UP IN CHAIR WITH EYES CLOSED, AND CHEST RISE EQUAL BILAT. PT HAS CALL LIGHT IN REACH.
--- NOTE | 2024-12-08 11:43 | NUR ---
PT MORNING MEDICATIONS ARE CURRENTLY BEING HELD DUE TO VERBAL ORDER FROM MD PEDRAZA, UNTIL MD DHILLON DECIDES WHAT THE POC IS MOVING FORWARD PT CURRENTLY NPO BUT THAT MAY CHANGE DEPENDING ON CONSULT FROM MD DHILLON.
--- NOTE | 2024-12-08 12:54 | NUR ---
PT SITTING UP IN BED, PT ALERT AND ORIENTED. PT HAS NO PAIN AT THIS TIME. PT HAS LANDIS IN PLACE, IV FLUIDS RUNNING AND NO CURRENT CONCERS AT THIS TIME PT HAS CALL LIGHT IN REACH.
--- NOTE | 2024-12-08 13:37 | NUR ---
MD DHILLON SPOKE WITH LACY, CHARGE NURSE. MD DHILLON WILL BE IN TOMORROW MORNING TO ACCESS THE PT. THEN POSSIBLE SURGERY SUNDAY. PT WAS UPDATED BY MD PEDRAZA ON THE POC AND WAS AGREEABLE. PT IS CURRENTLY WORKING WITH PHYSICAL THERAPY AT THIS TIME AND PT IS TOLERATING WELL. PT HAS NO COCNERNS AT THIS TIME PHYSICAL THERAPY IN ROOM.
--- NOTE | 2024-12-08 14:50 | NUR ---
VISITED DURING SPIRITUAL CARE ROUNDS. PT SUPPORTED BY LANGUAGE SPECIALIST IN ROOM, ON PHONE WITH ANOTHER SUPPORT PERSON. NO AVAILABLE FOR VISIT. PROVIDED PRAYER.
--- NOTE | 2024-12-08 14:51 | NUR ---
PT SITTING UP IN CHAIR, PT STATES " HER PAIN HAS DECREASED SINCE RECIEVING PRN PAIN MEDICATION". PT HAS CAREGIVER IN ROOM AND HAS NO CURRENT CONCERNS AT THIS TIME PT HAS CALL LIGHT IN REACH.
--- NOTE | 2024-12-08 16:30 | NUR ---
PT SITTING UP IN CHAIR, PT HAS ARM ELEVATED AT LEVEL OF HEART AND ICE PACK APPLIED. PT HAS NO OTHER COCNERNS AT THIS TIME CALL LIGHT IN REACH.
[2024-12-08] MEDS ORDERED: ARTIFICIAL TEARS 15 ML BTL OU PRN (17:30)
--- NOTE | 2024-12-08 17:50 | NUR ---
PT SITTING UP IN CHAIR EATING DINNER AT THIS TIME. PT RECIEVED EYE DROPS VIA NIO DUE TO EYES BEING DRY. PT HAS NO OTHER COCNERNS AT THIS TIME, AND HAS CALL LIGHT IN REACH.
--- NOTE | 2024-12-08 19:27 | NUR ---
REPORT RECEIVED FROM DAY SHIFT RN. PT LYING IN BED ALERT AND ORIENTED. DENIES NEEDS. WHITE BOARD UPDATED. CALL LIGHT IN REACH. BED ALARM FOR SAFETY.
--- NOTE | 2024-12-08 20:00 | NUR ---
PATIENT CALLED TO USE THE BATHROOM. 1 PA WITH WALKER. PATIENT ABLE TO HAVE LOOSE BM WITH LIGHT YELLOW CHUNKS. MARGOT CARE ASSISTED. PATIENT IS BACK IN BED. V/S AND I&O'S COMPLETED. CALL LIGHT IN PATIENT'S HAND.
--- NOTE | 2024-12-08 20:43 | NUR ---
EVENING ASSESSMENT COMPLETE. SCHEDULED MEDS ADMIN PER EMAR. PT REPORTS LUE PAIN 10/13. PRN FOR PAIN ADMIN PER EMAR. VS AND I&O OBTAINED. LANDIS PATENT WITH CONCENTRATED YELLOW URINE. LUE WITH CAST IN PLACE RESTING ON PILLOW. CMS INTACT. BRISK CAP REFILL NOTED. PT C/O RESTLESS LEGS, REQUESTING HOME GABAPENTIN. NOTIFIED. NEW ORDERS RECEIVED. PT DENIES FURTHER NEEDS. BED ALARM FOR SAFETY. CALL LIGHT IN REACH.
[2024-12-08] MEDS ORDERED: ROPINIROLE HCL 0.25 MG TAB PO ONE (20:45)
--- NOTE | 2024-12-08 22:45 | NUR ---
PATIENT PROVIDED WITH SALTINE CRACKERS X2 PACKETS PER REQUEST AND SHE FINISHED. HEAD OF THE BED DOWN AFTER PATIENT'S SNACKING. TV AND ROOM LIGHTS OFF. CALL LIGHT IN PATIENT'S HAND.
[2024-12-09] VITALS (7 sets, daily range): BP systolic 141–177; BP diastolic 53–65
--- NOTE | 2024-12-09 00:31 | NUR ---
CALL LIGHT ANSWERED. PT REQUESTING WARM BLANKET, PROVIDED. ROOM TEMP ADJUSTED. NO FURTHER NEEDS.
--- NOTE | 2024-12-09 02:44 | NUR ---
CALL LIGHT ANSWERED. PT REPORTS LUE/BACK/SHOULDER PAIN 05/13. 2PA TO REPOSITION IN BED. LUE ELEVATED ON PILLOW. PRN FOR PAIN ADMIN PER EMAR. NO FURTHER NEEDS. CALL LIGHT IN REACH.
--- NOTE | 2024-12-09 03:48 | NUR ---
CALL LIGHT ANSWERED. PT CALLED TO REPORT SHE IS CURRENTLY IN NO PAIN. DENIES OTHER NEEDS AT THIS TIME.
--- NOTE | 2024-12-09 04:32 | NUR ---
CALL LIGHT ANSWERED. PT REPORTS BACK PAIN. 2PA TO REPOSITION IN BED WITH PILLOWS. PT REPORTS RELIEF AT THIS TIME. NO FURTHER NEEDS AT THIS TIME.
[2024-12-09 05:25] LABS: EOSINOPHILS 8.1 % (0-6); HEMATOCRIT 29.7 % (35.0-50.0); HEMOGLOBIN 9.7 g/dL (12.0-18.0); MCH 29.1 (27-36); MCHC 32.5 g/dl (30-36); MCV 89.6 fl (81-99); MONOCYTES 9.4 % (0-12); NEUTROPHILS 60.5 % (39-80); PLATELET COUNT 529 K/uL (140-440); RBC 3.32 M/ul (4.3-5.7); RDW 14.8 (10.5-15.0)
--- NOTE | 2024-12-09 05:33 | NUR ---
LAB IN FOR MORNING DRAW. VS AND I&O OBTAINED. SCHEDULED MEDS ADMIN PER EMAR. NO C/O PAIN AT THIS TIME. NO FURTHER NEEDS. CALL LIGHT IN REACH. BED ALARM FOR SAFETY.
[2024-12-09 06:00] LABS: BUN/CREATININE RATIO 21.56 (6.0-28.6); CALCIUM 8.7 mg/dL (8.5-10.1); CREATININE, SERUM 1.02 mg/dL (0.55-1.02); MAGNESIUM 2.3 mg/dL (1.8-2.4)
--- NOTE | 2024-12-09 07:13 | NUR ---
VERBAL REPORT RECEIVED FROM MARANDA DORANTES. PT AWAKE IN BED, MARCIO MURPHY IN ROOM, PROVIDES CARE.
[2024-12-09] MEDS ORDERED: LACTULOSE 20 GM/30 ML CUP PO SCH (09:00)
--- NOTE | 2024-12-09 09:40 | NUR ---
In and spoke with Donna briefly. She is visiting with Dr. Meza. Pt gets off subject at time, but is able to make her wants and needs known. Pt wants surgery tomorrow. Pt would like to go to [facility] on dc and family, nephew, is in agreement.
--- NOTE | 2024-12-09 10:34 | NUR ---
I called earlier and left a message for Rosa at [facility] asking if they will have a bed open for this pt. Received a return call. She states she will review after pt has surgery and how well she tolerates her surgery. She states they are hesitant to accept this pt as their is documentation from a hospitalist stating pt is agressive with the staff.
--- NOTE | 2024-12-09 11:48 | NUR ---
PT RESTS IN BED, AWAKE AND ALERT, VISITOR X1 AT BEDSIDE. PT DENIES ANY NEEDS AT THIS TIME. CALL LIGHT IN REACH.
--- NOTE | 2024-12-09 14:04 | NUR ---
PT DECLINED SPIRITUAL CARE VISIT. PROVIDED PRAYER.
--- NOTE | 2024-12-09 14:56 | NUR ---
PT RESTS IN BED WITH EYES CLOSED, RESP EVEN AND UNLABORED.
--- NOTE | 2024-12-09 16:23 | NUR ---
PT RESTS IN BED AWAKE AND ALERT. DENIES ANY NEEDS AT THIS TIME. CALL LIGHT IN REACH.
--- NOTE | 2024-12-09 19:05 | NUR ---
REPORT RECEIVED FROM KEN LOW. pt RESTING IN THE BED WITH FAMILY IN . BOARD UPDATED. pt DENIES ANY OTHER NEEDS AT THIS TIME. CALL LIGHT WITHIN REACH.
--- NOTE | 2024-12-09 19:10 | NUR ---
AFTER PATIENT WAS DONE WITH HER DINNER AND GOT HER VITALS HELPED PATIENT BACK TO BED. BED ALARM IS ON.
--- NOTE | 2024-12-09 20:25 | NUR ---
ASSESSMENT AND VITAL SIGNS DONE. pt UP TO THE BR. pt BACK TO THE BED. SCHEDULED MEDS ADMINISTERED. LANDIS CARE DONE. pt DENIES ANY OTHER NEEDS AT THIS TIME. CALL LIGHT WITHIN REACH. PRN PAIN MEDS ADMINISTERED FOR A PAIN RATING OF 6/10.
[2024-12-09] MEDS ORDERED: ROPINIROLE HCL 0.25 MG TAB PO SCH (21:00)
--- NOTE | 2024-12-09 23:30 | NUR ---
pt CALLED TO STATE SHE WAS WET AND HAVING TROUBLES. pt GOWN WAS CHANGED AND pt WAS REPOSITIONED. pt DENIES ANY OTHER NEEDS AT THIS TIME. CALL LIGHT WITHIN REACH. LANDIS EMPTIED.
[2024-12-10] VITALS (13 sets, daily range): BP systolic 125–170; BP diastolic 49–69
--- NOTE | 2024-12-10 01:25 | NUR ---
pt RESTING IN THE BED WITH EYES CLOSED. RR EVEN AND UNLABORED. CALL LIGHT WITHIN REACH.
--- NOTE | 2024-12-10 03:00 | NUR ---
pt RESTING IN THE BED. WARM BLANKKET PROVIDED. pt DENIES ANY OTHER NEEDS AT THIS TIME. CALL LIGHT WITHIN REACH.
[2024-12-10 05:26] LABS: BASOPHILS 1.1 % (0-2); EOSINOPHILS 6.4 % (0-6); HEMATOCRIT 28.1 % (35.0-50.0); HEMOGLOBIN 9.4 g/dL (12.0-18.0); LYMPHOCYTES 22.4 % (24-44); MCH 30.1 (27-36); MCHC 33.6 g/dl (30-36); MCV 89.7 fl (81-99); MONOCYTES 8.9 % (0-12); NEUTROPHILS 61.2 % (39-80); PLATELET COUNT 612 K/uL (140-440); RBC 3.14 M/ul (4.3-5.7); RDW 14.4 (10.5-15.0)
--- NOTE | 2024-12-10 05:35 | NUR ---
pt WIPE DOWN DONE FOR SUGERY AND VITAL SIGNS DONE. pt READY FOR SUGERY AT THIS TIME. CALL LIGHT WITHIN REACH. WARM BLANKET PROVIDED. NPO AT THIS TIME.
[2024-12-10 05:37] LABS: ANION GAP 13.6 (7-21); BUN/CREATININE RATIO 17.75 (6.0-28.6); CALCIUM 8.7 mg/dL (8.5-10.1); CREATININE, SERUM 1.07 mg/dL (0.55-1.02); MAGNESIUM 2.1 mg/dL (1.8-2.4); POTASSIUM 3.6 mmol/L (3.5-5.1)
[2024-12-10] MEDS ORDERED: propofoL 200 MG/20 ML VIAL ONE (06:05)
[2024-12-10] MEDS ORDERED: DEXAMETHASONE SOD PHOS 4 MG/ML VIAL ONE (06:05)
[2024-12-10] MEDS ORDERED: Ropivacaine HCl 0.5% 30 ML VIAL ONE (06:06)
[2024-12-10] MEDS ORDERED: LIDOCAINE HCL 2% 5 ML SDV ONE (06:06)
[2024-12-10] MEDS ORDERED: SODIUM CHLORIDE 0.9% 20 ML IV ONE (06:06)
[2024-12-10] MEDS ORDERED: IBLOOD GLUCOSE TEST STRIP 1 EA TEST VI PRN (06:30)
[2024-12-10] MEDS ORDERED: NALOXONE HCL 0.4 MG SYR IV PRN (06:30)
[2024-12-10] MEDS ORDERED: fentaNYL citrate 50 MCG/ML SDV IV PRN (06:30)
[2024-12-10] MEDS ORDERED: ondansetron HCL 4 MG/2 ML VIAL IV PRN (06:30)
[2024-12-10] MEDS ORDERED: CEFAZOLIN SODIUM 2 GM/20 ML SYR IV SCH (07:00)
--- NOTE | 2024-12-10 07:00 | NUR ---
REPORT RECEIVED FROM FACILITIES PAINTER RN JANES. PATIENT REMAINS OFF THE FLOOR AT THIS TIME AND IN SURGERY.
[2024-12-10] MEDS ORDERED: ondansetron HCL 4 MG/2 ML VIAL ONE (07:19)
[2024-12-10] MEDS ORDERED: ePHEDrine sulfate 50 MG/ML AMP ONE (07:24)
--- NOTE | 2024-12-10 08:12 | NUR ---
12/10/24 0812 Kallie Burden 0758 PT TO PACU SLEEPING ORAL AIRWAY IN PLACE O2 VIA MASK FOGGING NOTED IN MASK. 0803 ORAL AIRWAY REMOVED PT MOVING ALL EXTREMITIES, ENCOURAGED HER NOT TO MOVE LEFT ARM SHE BUMPED HER FACE WITH IT. PT AAO X3
--- NOTE | 2024-12-10 08:24 | NUR ---
PATIENT REMAINS OFF THE UNIT AT THIS TIME.
[2024-12-10] MEDS ORDERED: HYDROCODONE/ACETA 5/325 TAB PO PRN (08:45)
--- NOTE | 2024-12-10 08:45 | NUR ---
PATIENT RETURNED TO THE ROOM AT THIS TIME. REPORT RECEVIED FROM MARANDA EWING FROM DAY-SURGERY/PACU. PATIENT IS ALERT AND ORIENTED TIMES FOUR. VITAL SIGNS TAKEN AND DOCUMENTED IN THE CHART. PATIENT STATED NO NEEDS AT THIS TIME. CALL LIGHT AND PERSONAL BELONGINGS ARE WITHIN REACH.
--- NOTE | 2024-12-10 08:55 | NUR ---
ROUNDED ON THE PATIENT AT THIS TIME. CPOX AT BEDSIDE. FULL ASSESSMENT COMPLETE AND DOCUMENTED IN THE CHART. PATIENT IS ALERT AND ORIENTED TIMES FOUR. PATIENT WITH NO COMPLAINTS OF PAIN OR NAUSEA. PATIENT WITH GENERALIZED WEAKNESS. SCD'S IN PLACE. LANDIS CATHETER IN PLACE AND DRAINING YELLOW URINE. LEFT WRIST WITH ABD PAD, GAUZE, SOLEDAD WRAP, AND SPLINT. DRESSING IS CLEAN, DRY, AND INTACT. LEFT WRIST ELEVATED AND WITH AN ICE PACK. SKIN WITH SCATTERED BRUISING NOTED. IV SITE FLUSHED WITH 10 ML NORMAL SALINE AND IS SALINE LOCKED. IV DRESSING IS CLEAN, DRY, AND INTACT. PATIENT IS ON ROOM AIR AND LUNG SOUNDS ARE CLEAR THROUGHOUT. CARDIAC WITH IRREGULAR HEART TONES ON AUSCULTATION. RADIAL AND PEDAL PULSES ARE STRONG BILATERALLY. CAPILLARY REFILL IS LESS THAN 3 SECONDS BILATERALLY. NO EDEMA NOTED. SENSATION INTACT WITH NO COMPLAINTS OF NUMBNESS OR TINGLING. PATIENT DIET IS ADVANCE TOLERATED. ABDOMEN WITH MILD DISTENTION. BOWEL TONES ARE ACTIVE IN ALL FOUR QUADRANTS. PATIENT STATED NO FURTHER NEEDS AT THIS TIME. CALL LIGHT AND PERSONAL BELONGINGS ARE WITHIN REACH.
--- NOTE | 2024-12-10 09:10 | NUR ---
Pt resting in bed following surgery. Asking if she will go to [facility] today. Let her know the chart has been sent. We are waiting to hear if [facility] will accept her. Pt has not had behavior issues since the first couple of days when she was very confused.
--- NOTE | 2024-12-10 10:17 | NUR ---
PATIENT IS SITTING IN THE CHAIR WITH BILATERAL LOWER EXTREMITIES ELEVATED. LANDIS CATHETER IN PLACE AND DRAINING LIGHT YELLOW URINE. 0800 AND 0900 MEDICATIONS ADMINISTERED PER THE EMAR. FRESH CUP OF ICE WATER AND CHICKEN BROTH PROVIDED. 2ND SET OF POST OPS STABLE THAT WERE TAKEN BY MARANDA MURPHY. PATIENT WITH A VISITOR SITTING ON THE COUCH. CHAIR ALARM IN PLACE. PATIENT STATED NO FURTHER NEEDS AT THIS TIME. CALL LIGHT AND PERSONAL BELONGINGS ARE WITHIN REACH.
--- NOTE | 2024-12-10 10:36 | NUR ---
CHART FAXED TO [facility] FOR REVIEW.
--- NOTE | 2024-12-10 11:04 | NUR ---
PATIENT GIVEN UPDATE REGARDING PLACEMENT. PATIENT SYAYS "WHO ARE YOU" UNPON RN ENTERING THE ROOM. PATIENT EDUCATED AT THIS TIME. RN EXPRESSED GIVING HER AN UPDATE WHEN I GOT ONE. PATIENT IS SITTING IN THE CHAIR WITH BILATERAL LOWER EXTREMITIES ELEVATED. PATIENT WITH A VISITOR SITTING ON THE COUCH. PATIENT IS ON ROOM AIR AND THE CPOX IS AT BEDSIDE. MARCIO MURPHY IS IN THE ROOM AND FINISHING TAKING THE THIRS SET OF POST OP VITALS. PATIENT STATED NO FURTHER NEEDS AT THIS TIME. CALL LIGHT AND PERSONAL BELONGINGS ARE WITHIN REACH.
--- NOTE | 2024-12-10 12:04 | NUR ---
PATIENT IS SITTING IN THE CHAIR WITH BILATERAL LOWER EXTREMITIES ELEVATED. CPOX AT BEDSIDE AND PATIENT IS ON ROOM. PATIENT WITH EYES CLOSED AND RESPIRATIONS ARE EVEN AND UNLABORED. PATIENT WITH A VISITOR SITTING ON THE COUCH. CALL LIGHT AND PERSONAL BELONGINGS ARE WITHIN REACH.
--- NOTE | 2024-12-10 12:08 | NUR ---
PT NOT AVAILABLE FOR VISIT. PROVIDED PRAYER.
--- NOTE | 2024-12-10 13:08 | NUR ---
PATIENT IS SITTING IN THE CHAIR WITH BILATERAL LOWER EXTREMITIES ELEVATED. PATIENT IS SPEAKING WITH A VISITOR AT THIS TIME. PATIENT IS ON ROOM AIR WITH THE CPOX AT BEDSIDE. CALL LIGHT AND PERSONAL BELONGINGS ARE WITHIN REACH.
--- NOTE | 2024-12-10 14:04 | NUR ---
PATIENT IS LYING IN BED WITH EYES OPEN AND RESPIRATIONS ARE EVEN AND UNLABORED. PATIENT IS ON ROOM AIR AND CPOX AT BEDSIDE. CALL LIGHT AND PERSONAL BELONGINGS ARE WITHIN REACH.
--- NOTE | 2024-12-10 14:28 | NUR ---
AFTER VITALS WERE DONE. HELPED PATIENT BACK TO BED. BED ALARM ON.
--- NOTE | 2024-12-10 14:34 | NUR ---
NOTIFIED ABOUT PATIENT WANTING TO SPEAK WITH THE DOCTOR AND TELLING THIS RN THAT IT WAS VERY URGENT. STATED HE WAS ON HIS WAY DOWN. NO NEW ORDERS AT THIS TIME. CALL ENDED.
--- NOTE | 2024-12-10 15:36 | NUR ---
PATIENT IN BED WITH SHOES ON. TWO CNAS AMBULATING HER TO THE TOILET AND THEN TO THE CHAIR. PROTONIX PILL FOUND ON THE FLOOR, PRIMARY NURSE NOTIFIED. PRIMARY NURSE INSTRUCTED DIRECTOR OF [employer] TO THROW PILL AWAY. DIRECTOR [employer] DISPOSED OF PILL. DIRECTOR [employer] STATED NO NEEDS AT THIS TIME. VISITOR SITTING ON THE COUCH. CALL LIGHT AND PERSONAL BELONGINGS WITHIN REACH.
--- NOTE | 2024-12-10 16:17 | NUR ---
PRN NORCO GIVEN PER EMAR. PATIENT RATED PAIN 10/10 IN BACK AND LEFT ARM. DRESSING ON THE LEFT ARM IS CLEAN, DRY AND INTACT. IV ASSESSMENT COMPLETED, 10ML NS FLUSHED, IV WNL. PATIENT IS ALERT AND ORIENTED TIMES FOUR. LANDIS CATHETER AND MARGOT CARE DONE. PATIENT TOLERATED WELL. PATIENT WITH VISITOR IN THE ROOM THROUGHOUT INTERACTION. CPOX AT BEDSIDE. PATIENT STATED NO FURTHER NEEDS AT THIS TIME. CALL LIGHT AND PERSONAL BELONGINGS ARE WITHIN REACH.
--- NOTE | 2024-12-10 16:50 | NUR ---
NOTIFIED OF PATIENT PAIN OF 06/12 STILL AFTER RECEIVING NORCO AT 1607. STATED HE WOULD PUT IN AN ADDITIONAL DOSE OF NORCO ONE TIME NOW. CALL ENDED.
[2024-12-10] MEDS ORDERED: HYDROCODONE/ACETA 5/325 TAB PO ONE (17:00)
--- NOTE | 2024-12-10 17:31 | NUR ---
PATIENT PRESSED THE CALL LIGHT AND WANTING TO KNOW WHY THE PAIN MEDICATION IS NOT WORKING. RN EDUCATED ON THE DOSES SHE HAS RECEIVED AND HOW LONG THEY USUALLY TAKE TO START TAKING EFFECT. PATIENT EXPRESSED UNDERSTANDING. RN EDUCATED PATIENT ON IF HER PAIN HAS NOT CHANGED IN 20-30 MINUTES THIS RN WOULD CALL THE DOCTOR AGAIN. PATIENT EXPRESSED UNDERSTANDING. LEFT ARM WITH ICE PACK IN PLACE AND ELEVATED ON A PILLOW. PATIENT STATED NO FURTHER NEEDS AT THIS TIME. CALL LIGHT AND PERSONAL BELONGINGS ARE WITHIN REACH.
--- NOTE | 2024-12-10 18:15 | NUR ---
PATIENT IS LYING IN BED WITH EYES CLOSED AND RESPIRATIONS ARE EVEN AND UNLABORED. PATIENT IS ON ROOM AIR. CPOX AT BEDSIDE. CALL LIGHT AND PERSONAL BELONGINGS ARE WITHIN REACH.
--- NOTE | 2024-12-10 18:52 | NUR ---
PT CALLING OUT TO THIS RN AND MARCIO BENSON. PT CAN ONLY TELL THIS RN "I WANT NO PAIN". ICE PACK IN PLACE TO L ARM. PTs PRIMARY NURSE ALERTED. BED ALARM ON, BED IN LOWEST POSITION, CPOX AT BEDSIDE, CALL LIGHT AND PERSONAL BELONGINGS IN REACH.
--- NOTE | 2024-12-10 19:05 | NUR ---
REPORT RECIEVED FROM GREGG LOW. pt RESTING IN THE BED. BOARD UPDATED. pt DENIES ANY OTHER NEEDS AT THIS TIME. CALL LIGHT WITHIN REACH.
--- NOTE | 2024-12-10 20:12 | NUR ---
VS COMPLETED. FED PT HER JELLO, ICE WATER SIPS, WELL SIPS OF CLEAR ENSURE. PRIMARY RN IN ROOM.
--- NOTE | 2024-12-10 20:23 | NUR ---
THIS RN CALLED DR. DHILLON DUE TO pt HAVING BLOOD ON HER DRESSING. DR. DHILLON STATED TO CONTINUE TO ICE AND ELEVATE HER HAND. THIS RN VERIFIED THAT WAS THE PLAN AND THAT WAS ALREADY IN PLACE.
--- NOTE | 2024-12-10 20:35 | NUR ---
ASSESSMENT AND VITAL SIGNS DONE. pt WANTED SONETHING TO EAT. PUDDING AND CRACKERS. pt C/O 05/13 PAIN. PRN PAIN MEDS ADMINISTERED. SCHEDULED MEDS ADMINISTERED. pt DRESSING STILL SATURATED. ABD PAD HAS MINIMAL DRAINAGE ON IT. pt LEFT ARM ELEVATED WITH A ICE PACK ON IT. BRACE ON. SLING ON. pt DENIES ANY THING ELSE. CALL LIGHT WITHIN REACH.
--- NOTE | 2024-12-10 21:10 | NUR ---
pt YELLING OUT. THIS RN IN TO SEE WHAT pt NEEDED AND TO REMIND HER THAT SHE CAN USE THE CALL LIGHT AND NOT TO YELL BECAUSE THERE ARE OTHER PEOPLE HERE IN THE HOSPITAL TRYING TO SLEEP. pt STATES THAT THE CALL LIGHT HASN'T BEEN WORKING ALL DAY. THIS RN SHOWED THE pt THAT THE CALL LIGHT WAS WORKING. pt STATED SHE WAS HUNGRY THIS RN GAVE pt PUDDING AND CRACKERS. pt STARTED TO HAVE AN UPSET STOMACH. PRN [place] MEDS ADMINISTERED. pt DENIES ANY OTHER NEEDS AT THIS TIME. L ARM ELEVATED AND ICE PACK IN PLACE.
--- NOTE | 2024-12-10 21:45 | NUR ---
THIS RN INTO PATIENT ROOM TO REINFORCE RIGHT HAND DRESSING AFTER NOTING BREAK THROUGH BLOOD, ADB WITH CHANTELLE SOLEDAD WRAP ADDED OVER CURRENT DRESSING.
--- NOTE | 2024-12-10 23:59 | NUR ---
IN RM TO CHECK ON pt. DENIES ANY NEEDS AT THIS TIME. CALL LIGHT WITHIN REACH. pt A&O X4.
[2024-12-11] VITALS (10 sets, daily range): BP systolic 128–144; BP diastolic 46–80
--- NOTE | 2024-12-11 00:32 | NUR ---
MEDICATED PT FOR LEFT HAND/WRIST PAIN. WITH CHARGE NURSE, LEFT HAND/WRIST CHECKED FOR BLEEDING, APPLIED GAUZE FLUFFS, REMOVED THE ABD. NOTED THAT BLEEDING HAS SUBSIDED, WITH ACTUAL CLOTTING NOTED ON DRESSING AND FINGERS. LANDIS EMPTIED. REPOSITIONED PT LEGS ON BED. BED ALARM REMAINS ON FOR SAFETY.
--- NOTE | 2024-12-11 02:39 | NUR ---
pt RESTING IN THE BED WITH EYES CLOSED. RR EVEN AND UNLABORED. CALL LIGHT WITHIN REACH.
--- NOTE | 2024-12-11 05:00 | NUR ---
VITAL SIGNS DONE. pt C/O 11/10 PAIN. PRN PAIN MEDS ADMINISTERED. pt DENIES ANY OTHER NEEDS AT THIS TIME. CALL LIGHT WITHIN REACH. pt DRESSING HAS SS FLUID LEAKING ONTO THE PILLOW. L ARM ELEVATED AND NEW ICE PACK PROVIDED. pt REPOSITIONED UP IN THE BED.
[2024-12-11 05:06] LABS: HEMOGLOBIN 9.2 g/dL (12.0-18.0)
[2024-12-11 05:15] LABS: HEMATOCRIT 27.6 % (35.0-50.0); MCH 29.6 (27-36); MCHC 33.2 g/dl (30-36); MCV 89.1 fl (81-99); PLATELET COUNT 628 K/uL (140-440); RDW 14.6 (10.5-15.0)
[2024-12-11 05:16] LABS: ANION GAP 14.6 (7-21); BUN/CREATININE RATIO 22.34 (6.0-28.6); CALCIUM 8.5 mg/dL (8.5-10.1); CREATININE, SERUM 0.94 mg/dL (0.55-1.02); POTASSIUM 3.6 mmol/L (3.5-5.1)
[2024-12-11 06:06] LABS: BASOPHILS, MANUAL DIFF 1; EOSINOPHILS, MANUAL DIFF 1; LYMPHOCYTES, MANUAL DIFF 17; MONOCYTES, MANUAL DIFF 8; NEUTROPHILS, MANUAL DIFF 73
--- NOTE | 2024-12-11 07:00 | NUR ---
NOTIFIED THAT NO POST OP ANTIBIOTICS HAVE BEEN ORDERED, SAID, "THATS OK."
--- NOTE | 2024-12-11 07:35 | NUR ---
REPORT RECEIVED FROM MARANDA MARRERO. PATIENT RESTING IN BED WITH L ARM ELEVATED ON PILLOW AND ICE PACK IN PLACE. SEROSANGUINOUS DRAINAGE NOTED ON PILLOWCASE BENEATH ARM. LANDIS CATH DRAINING FREELY TO BEDSIDE CLEAR, YELLOW URINE. PATIENT IS CONVERSING PLEASANTLY WITH THIS RN. FRESH ICE WATER AND JUICE PROVIDED, PATIENT ENCOURAGED TO DRINK. PATIENT TAKES A FEW SIPS OF JUICE. NO REQUESTS AT THIS TIME, CALL LIGHT AND PERSONAL BELONGINGS IN REACH, BED IN LOWEST POSITION, BED ALARM ON. MARCIO HANCOCK ARRIVES TO CARE FOR PATIENT, MARCIO REMAINS IN ROOM.
--- NOTE | 2024-12-11 08:17 | NUR ---
PATIENT IS CURRENTLY SITTING UP IN THEIR CHAIR. LEFT ARM IS ELEVATED. SURGERY SITE IS OOZING CLEAR FLUID, RN ROBERT NOTIFIED. BED LINENS WERE CHANGED. PATIENT WAS STEADY ON HER FEET BUT REQUIRED SEVERAL VERBAL CUES TO GET TO THEIR CHAIR. CALL LIGHT AND PERSONAL ITEMS ARE WITHIN REACH. BREAKFAST TRAY IS SET UP.
--- NOTE | 2024-12-11 08:50 | NUR ---
PHYSICAL THERAPY ENTERS ROOM TO WORK WITH PATIENT, PATIENT IS UP IN RECLINER AT THIS TIME.
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
[2024-12-11] MEDS ORDERED: TRANEXAMIC ACID IN NACL,ISO-OS 1,000 MG/100 ML PIGGYBACK IV SCH (09:15)
--- NOTE | 2024-12-11 09:20 | NUR ---
In to speak with Donna. She is not feeling well. C/o severe heartburn. Pt has also bled through her brace on her surgical had. I attempted to call [facility] to check if they will accept this pt. Unclear if she will be able to dc today.
--- NOTE | 2024-12-11 09:21 | NUR ---
PT MEDS SCANNED FOR PRIMARY RN WHILE SHE COMPLETES WOUND CARE TO (L) WRIST PER DR DHILLON ORDERS. PT C/O HEARTBURN, CLARIFIED WITH PATIENT IF SHE FEELS IT IS HER HEART OR HEARTBURN AND SHE SPECIFICALLY STATES IT IS HEARTBURN. SHE CONTINUES TO ASK ME IF I KNOW WHAT TUMS IS BECAUSE THAT IS WHAT SHE WANTS, GIVEN THE MEDICATION ORDERED AND DISCUSSED WITH MD FOR ORDER FOR TUMS. PRN TUMS 1000MG ORDERS BID PRN AT THIS TIME.
[2024-12-11] MEDS ORDERED: CALCIUM CARBONATE 500 MG CHEW PO PRN (09:30)
--- NOTE | 2024-12-11 09:58 | NUR ---
PATIENT UP IN RECLINER WITH LEFT ARM ELEVATED ON A PILLOW. SHOULDER SPLINT AND ARM SPLINT REMOVED, BOTH SPLINTS HAVE A MODERATE AMOUNT OF BLOOD ON THEM. DRESSING OF SOLEDAD BANDAGE AND SURGICAL ADHESIVE DRESSING REMOVED, NOTED TO BE SATURATED WITH BRIGHT RED BLOOD. PATIENT'S ARM IS CLEANED UP WITH STERILE SALINE SYRINGES. PRESSURE APPLIED TO TWO SURGICAL INCISIONS AT WRIST AND FOREARM BY STUDENT NURSE NANI WHILE THIS RN CLEANSES THE ARM. ARM IS PATTED DRIED. 2x2 GAUZE FOLDED AND PRESSED TO INCISION, TWO ALLEVYNS USED IN TOTAL, ONE TO EACH INCISION WITH GAUZE BENEATH. TWO ABD PADS APPLIED PROXIMALLY AND DISTALLY TO COVER ALLEVYNS. TWO SOLEDAD BANDAGES USED TO WRAP ARM FROM HAND TO JUST BELOW ELBOW. NEW SHOULDER SPLINT AND WRIST SPLINT OBTAINED AND PLACED. PATIENT TOLERATES WELL, SOME PAIN WITH RAISING HER ARM TO WRAP THE SOLEDAD BANDAGE. PATIENT'S MAIN COMPLAINT IS HER HEARTBURN WHICH SHE RATES A 10/10. PATIENT IS REQUESTING "SOFT CHEW TUMS". CHARGE NURSE DINORA OBTAINS ORDER FOR TUMS AND BRINGS MEDICATION. PATIENT CHEWS MEDICATIONS AND CONTINUES TO REQUEST SOFT CHEW TUMS SHE REPORTS THESE WORK BETTER FOR HER. PATIENT WRIST/ARM DRESSING CHANGE COMPLETED, ARM ELEVATED TO WREST ON TWO PILLOWS WITH A FRESH ICE PACK IN PLACE. MEDICATIONS ADMINISTERED, SEE MAR. ASSSSMENT COMPLETE. PATIENT'S LEFT FINGERS VISABLE IN NEW DRESSING, NOTED TO BE A LITTLE PALE BUT WARM TO THE TOUCH WITH CAPILLARY REFILL OF LESS THAN 3 SECONDS. PATIENT REPORTS SHE CAN FEEL TOUCH TO HER FINGERS, DENIES NUMBNESS OR TINGLING. PATIENT'S ABDOMEN HAS ACTIVE BOWEL TONES IN ALL QUADRANTS AND IS MODERATELY DISTENDED, SLIGHTLY FIRM TO PALPATION. PATIENT DENIES TENDERNESS OR DISCOMFORT WITH PALPATION BUT CONTINUES TO COMPLAIN OF HEARTBURN. PATIENT IV TO R HAND FLUSHES WNL, IV TXA INFUSES IN 15 MINUTES, IV FLUSHED AND SALINE LOCKED AT THIS TIME. WARM BLANKET PROVIDED. PATIENT CURRENTLY RESTING IN THE RECLINER WITH BLE ELEVATED, RESTING WITH EYES CLOSED, RR EVEN AND UNLABORED. CALL LIGHT AND PERSONAL BELONGINGS (INCLUDING HER PURSE) ARE IN REACH ON THE TABLE.
--- NOTE | 2024-12-11 10:36 | NUR ---
MD MANN IN ROOM WITH PATIENT TO ASSESS. SPEAKS WITH PATIENT'S FAMILY. ALL QUESTIONS AND CONCERNS ANSWERED AND ADDRESSED. PATIENT REMAINS IN RECLINER WITH BLE ELEVATED AND L ARM ELEVATED ON TWO PILLOWS WITH ICE PACK IN PLACE.
--- NOTE | 2024-12-11 10:45 | NUR ---
PATIENT IN CHAIR AT THIS TIME. BLOOD BANK ATTENDANT CHARTED I&O'S. CALL LIGHT WITHIN REACH, NO FURTHER NEEDS AT THIS TIME.
--- NOTE | 2024-12-11 10:57 | NUR ---
LANDIS CATH REMOVED BY STUDENT NURSE ITA. PATIENT TOLERATES WELL. 25ML EMPTIED FROM LANDIS CATH. PT REMAINS UP IN RECLINER RESTING WITH EYES CLOSED, RR EVEN AND UNLABORED. PT ENCOURAGED TO CALL WHEN SHE FEELS THE NEEDS TO VOID, PT NODS HEAD IN UNDERSTANDING. CALL LIGHT AND PERSONAL BELONGINGS IN REACH.
--- NOTE | 2024-12-11 10:57 | NUR ---
PT DECLINED SPIRITUAL CARE SERVICES. PROVIDED PRAYER.
--- NOTE | 2024-12-11 11:05 | NUR ---
RECEIVED CALL FROM [facility]. THEY ARE UNABLE TO ACCEPT PATIENT AT THIS TIME.
--- NOTE | 2024-12-11 11:35 | NUR ---
PATIENT IS UP IN RECLINER WITH BLE ELEVATED, CONTINUES TO REPORT "HEARTBURN" AND RATES THE PAIN 10/10. PATIENT DENIES PAIN IN HER L WRIST BUT CRIES OUT SOFTLY WHEN HER ARM IS MOVED. PATIENT REQUESTS TO USE THE RESTROOM. PATIENT AMBULATES WITH MINIMAL ASSIST TO STAND, VERBAL CUES TO USE FWW TO RESTROOM AND SIT ON BEDSIDE COMMODE. PATIENT REPORTS SHE FEELS COLD. SWEATER PROVIDED, BLANKET WRAPPED ON HER SHOULDERS WHILE ON BSC. RESEARCH EXECUTIVEMichelle HANCOCK ARRIVES TO TAKE OVER CARES. PATIENT IS ALERT AND ORIENTED BUT TIRED. SHE CONTINUES TO STATE "UNCOMFORTABLE". MARCIO HANCOCK REMAINS IN ROOM AT THIS TIME.
--- NOTE | 2024-12-11 11:42 | NUR ---
PATIENT AMBULATES WITH SANTI, MARCIO AND FWW AND GETS INTO BED. L ARM ELEVATED ON TWO PILLOWS WITH ICE PACK IN PLACE. CPOX AT BEDSIDE. PATIENT UNSUCCESSFUL IN HAVING BOWEL MOVEMENT OR VOIDING BUT DID PASS GAS. PATIENT VERBALIZES UNDERSTANDING OF KEEPING HER ARM ELEVATED WITH THE ICE PACK IN PLACE. CALL LIGHT AND PERSONAL BELONGINGS IN REACH, BED ALARM ON.
--- NOTE | 2024-12-11 12:12 | NUR ---
MEDICATION ADMINISTERED, SEE MAR. PATIENTS EATING LUNCH INDEPENDENTLY AT THIS TIME. NO REQUESTS, CALL LIGHT AND PERSONAL BELONGINGS IN REACH, BED ALARM ON WITH BED IN LOWEST POSITION.
--- NOTE | 2024-12-11 12:45 | NUR ---
PATIENT'S SON ARRIVES WITH OTC MEDICATIONS MD MANN HAS APPROVED. BRYANT IN CASE MANAGEMENT NOTIFIED OF SON'S ARRIVAL.
[2024-12-11] MEDS ORDERED: PATIENT'S OWN MEDICATION(S) ORDER OU SCH (12:47)
[2024-12-11] MEDS ORDERED: PATIENT'S OWN MEDICATION(S) ORDER PO SCH (12:48)
--- NOTE | 2024-12-11 12:48 | NUR ---
BRYANT FROM CASE MANAGEMENT IN HAVING CONVERSATION WITH PATIENT AND PATIENT'S SON.
[2024-12-11] MEDS ORDERED: PATIENT'S OWN MEDICATION(S) ORDER PO PRN (13:00)
[2024-12-11] MEDS ORDERED: CALCIUM CARBONATE PO PRN (13:15)
[2024-12-11] MEDS ORDERED: SIMETHICONE PO PRN (13:15)
--- NOTE | 2024-12-11 13:15 | NUR ---
Spoke with Donna and her Nephew, Fidel. Pt was declined for placement by [facility]. We discussed other options and list given for SNFS. Pt is unable to decide where she would like to go. Pt has mild dementia and has trouble staying on topic. She in the past has declined [facility]. Nephew asks if she would be willing to go there as it is closer to [place] 50 miles. Pt discusses with nephew and cannot decide. She agrees to have me call [facility] and [facility] to check for bed availability. She will choose when she has more info. I contacted Dr. Burden as pt had some bleeding at her surgery site, pt ok to dc tomorrow if a bed can be found. Chart faxed to [facility] and [facility]. Called and both places have beds open.
[2024-12-11] MEDS ORDERED: PROPYLENE GLYCOL/PEG 400 15 ML DROPS OU SCH (13:30)
[2024-12-11] MEDS ORDERED: LUTEIN PO SCH (14:00)
[2024-12-11] MEDS ORDERED: ZEAXANTHIN PO SCH (14:00)
--- NOTE | 2024-12-11 14:52 | NUR ---
MEDICATION ADMINISTERED, SEE MAR. PHYSICAL THERAPY IN TO WORK WITH PATIENT. PATIENT AMBULATES WITH FWW AND PHYSICAL THERAPY TO RESTROOM TO USE BEDSIDE COMMODE. PATIENT PASSES GAS BUT HAS NO VOID OR BOWEL MOVEMENT. PULL-UP IN PLACE. LIDOCAINE PATCH PLACED TO LOWER BACK AT THIS TIME, PATIENT FINALLY AGREEABLE TO IT. PATIENT DOES NOT COMPLAIN OF HEARTBURN. SHE APPEARS UPSET AFTER VISITS WITH SON AND CASE MANAGEMENT. PATIENT FINISHES WITH PHYSICAL THERAPY, CURRENTLY IN RECLINER WITH BLE ELEVATED, L WRIST ELEVATED ON A PILLOW WITH ICE PACK IN PLACE. DRESSING TO L WRIST IS CLEAN, DRY, AND INTACT. WRIST SPLINT AND SHOULDER SPLINT IN PLACE. PATIENT WILL NOT GIVE THIS RN A PAIN LEVEL, BUT REPORTS HER L ARM IS PAINFUL AND SHE IS FEARFUL THAT IN AN HOUR SHE WILL BE IN EXTREME PAIN. PRN PAIN MEDICATION ADMINISTERED, PATIENT EDUCATED ON PAIN MEDICATION AND STAYING AHEAD OF PAIN. PATIENT IS CLOSING HER EYES IN RECLINER BUT NODS IN RESPONSE. PATIENT HAS NO REQUESTS AT THIS TIME, CALL LIGHT AND PERSONAL BELONGINGS IN REACH, CHAIR ALARM ON.
--- NOTE | 2024-12-11 15:20 | NUR ---
Message from Attila at [facility], they will accept this pt. Called and They would like pt to arrive at 11:00. Let her know I will send orders in the morning and schedule the WC van as nephew cannot be here tomorrow. Called the wc van and they do not have any openings until 11:15. They have a pickling operator at 1045 and ask if [facility] can put a wc out for Donna's ride. I will let T know. Called and spoke with Attila. Updated pt will transport at 11:15 and asked if she would put a wc out for transport at 10:45.
--- NOTE | 2024-12-11 16:00 | NUR ---
MD DHILLON NOTIFIED OF PATIENT BEING DISCHARGED TOMORROW TO FACILITY AND ASKING FOR WOUND ORDERS. GIVES ORDERS, CASE MANAGEMENT UPDATED.
--- NOTE | 2024-12-11 16:24 | NUR ---
Updated Dr. Meza, pt has been accepted and her ride in the van is at 11:15. Called and updated nephew, Fidel. He states he will try to get to [place] tomorrow. Let him know, its ok if he doesn't arrive at dc time. Pt is able to sign for herself.
--- NOTE | 2024-12-11 16:48 | NUR ---
PATIENT REMAINS RESTING IN RECLINER WITH BLE ELEVATED, RUE ON PILLOW WITH ICE PACK IN PLACE. EYES CLOSED, RR EVEN AND UNLABORED. CALL LIGHT AND PERSONAL BELONGINGS IN REACH, CHAIR ALARM ON, CPOX AT CHAIRSIDE.
--- NOTE | 2024-12-11 17:00 | NUR ---
PATIENT BLADDER SCANNED WITH MARCIO FULLER. 93ML SCANNED. PATIENT REPORTS THAT SHE FEELS THE NEED TO PEE. MARCIO HANCOCK INFORMED TO ASSIST PT TO RESTROOM. MARCIO HANCOCK IN ROOM AT THIS TIME.
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
[2024-12-11] MEDS ORDERED: SODIUM CHLORIDE 0.9% 1,000 ML IV SCH (18:30)
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
--- NOTE | 2024-12-11 18:46 | NUR ---
ST CATH SUCCESSFUL X1 ATTEMPT BY THIS RN. URINE OUTPUT OF 150ML. IV FLUIDS STARTED AT THIS TIME. ATTENDS CHANGED AND PERICARE GIVEN. PT BACK IN BED WITH PILLOW UNDER (L) WRIST. WARM BLANKETS PROVIDED AT THIS TIME, BED ALARM IN PLACE AGAIN. ALL PT CARE NEEDS MET, CALL LIGHT WITHIN REACH.
--- NOTE | 2024-12-11 18:59 | NUR ---
MD IN TO ASSESS PT AT THIS TIME. THIS RN PRESENT.
[2024-12-11] MEDS ORDERED: ACETAMINOPHEN 500 MG TAB PO PRN (19:15)
--- NOTE | 2024-12-11 19:25 | NUR ---
REPORT RECEIVED FROM MARANDA JONES. PATIENT IS RESTING IN BED WATCHING TV. PATIENT DENIES ANY NEEDS AT THIS TIME. CALL LIGHT AND PERSONAL BELONGINGS ARE WITHIN REACH.
--- NOTE | 2024-12-11 20:47 | NUR ---
TELEPHONE CALL PLACED TO MD MANN. NEW ORDERS RECEIVED TO TO STRAIGHT CATH PATIENT IF BLADDER SCAN READS GREATER THAN 250 mL, ONE TIME. ORDER VERIFIED USING REPEAT BACK METHOD.
--- NOTE | 2024-12-11 21:00 | NUR ---
pt SOMEWHAT RESTLESS IN BED, THIS RN SAT WITH pt AND PROVIDED THERAPEUTIC COMMINICATION AND ACTIVE LISTENING. pt REMINISCING AND INTERACTIVE WITH THIS RN, ASSISTED pt BACK IN BED WITH HELP FROM MARCIO SANTOS. ALARM ON AND CALL LIGHT IN REACH. NO ADDITIONAL NEEDS OR CONCERNS VERBALIZED, pt RECENTLY MEDICATED WITH PRN PAIN MEDICATION.
--- NOTE | 2024-12-11 22:20 | NUR ---
PATIENT RESTING IN BED WITH EYES CLOSED. EVEN AND UNLABORED RESPIRATIONS NOTED. BED ALARM ACTIVATED. CALL LIGHT AND PERSONAL BELONGINGS ARE WITHIN REACH.
--- NOTE | 2024-12-12 00:31 | NUR ---
PATIENT RESTING IN BED WITH EYES CLOSED. EVEN AND UNLABORED RESPIRATIONS NOTED. CALL LIGHT AND PERSONAL BELONGINGS ARE WITHIN REACH.
--- NOTE | 2024-12-12 01:30 | NUR ---
PATIENT RESTING IN BED WITH EYES CLOSED. EVEN AND UNLABORED RESPIRATIONS NOTED. CALL LIGHT AND PERSONAL BELONGINGS ARE WITHIN REACH. CPOX AT BEDSIDE. BED ALARM ACTIVATED.
--- NOTE | 2024-12-12 02:05 | NUR ---
PATIENT REQUESTING TO USE BATHROOM. PATIENT SHOES PUT ON FOR AMBULATION. PATIENT AMBULATED TO BATHROOM WITH THIS RN. PATIENT WITH 280ML IN URINE HAT WITH SOME THAT FLOWED INTO THE TOILET. PATIENT BACK IN BED AT THIS TIME. CALL LIGHT AND PERSONAL BELONGINGS ARE WITHIN REACH. BED ALARM ACTIVATED.
--- NOTE | 2024-12-12 03:16 | NUR ---
CPOX HAS BEEN DISCONTINUED DUE TO MARIA DOLORES'S INABILITY TO KEEP IT ON HER FINGER SHE LIKES TO PICK AND THE FINGER PROBE UNTIL IT FALLS OFF.
--- NOTE | 2024-12-12 04:00 | NUR ---
PATIENT RESTING IN BED WITH EYES CLOSED. EVEN AND UNLABORED RESPIRATIONS NOTED. CALL LIGHT AND PERSONAL BELONGINGS ARE WITHIN REACH.
--- NOTE | 2024-12-12 04:38 | NUR ---
PATIENT AMBULATED TO CHAIR WITH THIS RN. PATIENT WTIHOUT FURTHER NEEDS AT THIS TIME. CALL LIGHT AND PERSONAL BELONGINGS ARE WITHIN REACH.
[2024-12-12 05:38] VITALS: BP 167/64
--- NOTE | 2024-12-12 05:41 | NUR ---
CHRONIC DISEASE EPIDEMIOLOGIST OBTAINED VITALS AND I&O. PT GIVEN WARM BLANKET UPON REQUEST. PT STATES NO FURTHER NEEDS AT THIS TIME. CALL LIGHT WITHIN REACH.
[2024-12-12 05:57] LABS: ANION GAP 14.6 (7-21); BUN/CREATININE RATIO 16.16 (6.0-28.6); CALCIUM 8.4 mg/dL (8.5-10.1); CREATININE, SERUM 0.99 mg/dL (0.55-1.02); POTASSIUM 3.6 mmol/L (3.5-5.1)
[2024-12-12 05:58] LABS: BASOPHILS 0.8 % (0-2); EOSINOPHILS 2.7 % (0-6); HEMATOCRIT 26.5 % (35.0-50.0); HEMOGLOBIN 8.8 g/dL (12.0-18.0); LYMPHOCYTES 21.8 % (24-44); MCH 29.7 (27-36); MCHC 33.1 g/dl (30-36); MCV 89.8 fl (81-99); MONOCYTES 10.3 % (0-12); NEUTROPHILS 64.4 % (39-80); PLATELET COUNT 560 K/uL (140-440); RBC 2.95 M/ul (4.3-5.7); RDW 14.6 (10.5-15.0)
[2024-12-12 06:33] VITALS: BP 167/64
--- NOTE | 2024-12-12 06:40 | NUR ---
PATIENT UP TO BATHROOM WITH MARANDA ALFRED AND MARCIO SANTOS. PATIENT BACK IN BED WITH ARM ELEVATED AND BED ALARM ACTIVATED.
--- NOTE | 2024-12-12 07:26 | NUR ---
REPORT RECEIVED FROM JUWAN, RN AND AUBRIE RN. PATIENT IS RESTING IN BED WITH EYES CLOSED, MOUTH OPEN, RR EVEN AND UNLABORED. OPENS HER EYES WHEN THIS RN ENTERS BUT CLOSES THEM AGAIN AND DOES NOT RESPOND TO "GOOD MORNING". IVF INFUSING WNL, ICE PACK IN PLACE TO SPLINTED L ARM, L ARM IS ELEVATED ON TWO PILLOWS. BED ALARM ON. CALL LIGHT AND PERSONAL BELONGINGS IN REACH.
--- NOTE | 2024-12-12 08:20 | NUR ---
STUDENT NURSE ITA AND SHOWCASE TRIMMER NOHEMY ARE IN WITH PATIENT ADMINISTERING MEDICATIONS AT THIS TIME.
[2024-12-12] MEDS ORDERED: PLAVIX75 MG PO (09:13)
[2024-12-12] MEDS ORDERED: ATORVASTATIN CA40 MG PO (09:22)
[2024-12-12 09:25] VITALS: BP 127/54
[2024-12-12] MEDS ORDERED: LIPITOR40 MG PO (09:26)
--- NOTE | 2024-12-12 09:30 | NUR ---
PATIENT AMBULATES WITH 1PA FROM BED TO RESTROOM TO VOID IN BEDSIDE COMMODE. STUDENT NURSE ITA REMAINS WITH PATIENT WHILE SHE IS IN THE RESTROOM AT THIS TIME.
--- NOTE | 2024-12-12 09:31 | NUR ---
PATIENT IS IN HER CHAIR AT THIS TIME, SCOOPER CHARTED VITALS AND I&O'S, CALL LIGHT WITH IN REACH AND NOTHING ELSE NEEDED AT THIS TIME.
[2024-12-12 09:36] LABS: CHOLESTEROL/HDL RATIO 2.3
--- NOTE | 2024-12-12 10:06 | NUR ---
ASSESSMENT COMPLETE. PATIENT UP IN RECLINER BUT REPORTING BACK PAIN SHE RATES 11/. STUDENT NURSE ITA ASSISTS PATIENT TO AMBULATE FROM RECLINER TO BED. PATIENT LAYS DOWN, TWO PILLOWS PLACED BENEATH HER L ARM. PATIENT REQUESTS TO LIE FLAT FOR NOW, STATES THIS FEELS GOOD ON HER BACK. PATIENT DENIES PAIN IN HER L ARM "UNLESS SOMEONE BUMPS IT". FINGERS ARE WARM TO THE TOUCH, PINK, WITH CAPILLARY REFILL LESS THAN 3 SECONDS. PATIENT DENIES NUMBNESS OR TINGLING IN ANY EXTREMETIES. LUNG SOUNDS ARE CLEAR IN BILAT UPPER LOBES AND RLL, DIMINISHED IN THE LLL. PATIENT ABDOMEN IS MODERATELY DISTENDED BUT SOFT, PATIENT DENIES TENDERNESS OR DISCOMFORT, NO NAUSEA REPORTED. PATIENT'S LAST BOWEL MOVEMENT IS NOTED 12/09/24, PATIENT REPORTS CHORNIC CONSTIPATION. PATIENT HAS NO OTHER REQUESTS, CLOSES HER EYES TO REST. BED ALARM ON, FALL MATS IN PLACE, BED IN LOWEST POSITION. CALL LIGHT AND PERSONAL BELONGINGS IN REACH.
--- NOTE | 2024-12-12 10:15 | NUR ---
PT NOT AVAILABLE FOR VISIT. PROVIDED PRAYER.
[2024-12-12 10:27] VITALS: BP 127/54
--- NOTE | 2024-12-12 11:21 | NUR ---
REPORT GIVEN TO TABBY YEH AT [facility]. ALL QUESTIONS AND CONCERNS ANSWERED, CALL BACK NUMBER PROVIDED IF NEEDED.
--- NOTE | 2024-12-12 11:47 | OR ---
[facility] [address], [place] [address] Signed DATE OF OPERATION: 12/10/2024 SURGEON: Oswald Burden MD PREOPERATIVE DIAGNOSIS: Left distal radius fracture, displaced. POSTOPERATIVE DIAGNOSIS: Left distal radius fracture, displaced. PROCEDURE PERFORMED: Open reduction and internal fixation of left distal radius with bridge plate. SHOE STAINER: None. ANESTHESIA: General. BLOOD LOSS: None. TOURNIQUET TIME: 33 minutes. IMPLANTS: Synthes bridge plate with eight screws. BRIEF HISTORY: Maria Dolores is a 79-year-old female who suffered a fracture about two weeks ago. She presented to my office for consideration of surgical intervention. However, she was found to be not mentating well, was ultimately sent to the hospital where she was admitted to the hospitalist service and treated for encephalopathy. She finally resolved this, was felt to be stable for surgery today. Risks, benefits, alternatives were discussed with her of surgery and she understood, wished to proceed. DESCRIPTION OF PROCEDURE: Once consent was obtained, she was taken to the operating room. After adequate anesthesia, she was placed on operating room table with a hand table. The arm was prepped and draped in a standard sterile fashion up to a well-padded proximal arm Electronically Signed By: OSWALD BURDEN MD 12/12/24 1147 PATIENT NAME: MARIA DOLORES ROMANO OPERATIVE REPORT DATE OF : 47 REPORT #: [id number] PHYSICIAN: OSWALD BURDEN MD PCP: FAITH GARZA MD REPORT IS CONFIDENTIAL AND NOT TO BE RELEASED WITHOUT AUTHORIZATION [facility] [address], [place] [address] Signed tourniquet. The arm was exsanguinated using Esmarch bandage. Tourniquet inflated to 200 mmHg. The bridge plate was then placed over the dorsum of the wrist and hand and the incisions were marked out. The incision overlying the index metacarpal was incised and carried down through to the bone. The radial incision was carried through skin and subcutaneous tissue. Careful dissection was then taken down to the bone with care taken to avoid the large dorsal vein and extensor tendon. Once this was completed, the tunnel was developed dorsally along the radius to the first metacarpal. The bridge plate was then passed from the distal end across distal radius. This had to be removed and repositioned to get it more dorsally located. Once it was in the appropriate position, two screws were placed in the distal end of plate. The plate was then used to distract the wrist such that the distal radius was reduced adequately. Two screws were then placed proximal into the plate. Once this was accomplished radiograph showed good alignment and relatively good reduction of the fracture. Fracture is now two weeks old and was partially healed was a little bit difficult to reduce. The remaining screw holes were drilled and appropriate length screws were placed. Wounds were copiously irrigated with normal saline, closed with 3-0 nylon and dressed with Allevyn and an Neo wrap. She was placed in a cock-up wrist splint and taken to recovery room in satisfactory condition. All sponge, needle, and instrument counts were correct. Oswald Burden MD BA/MODL /[id number] Copies: ~ Electronically Signed By: OSWALD BURDEN MD 12/12/24 1147 PATIENT NAME: MARIA DOLORES ROMANO OPERATIVE REPORT DATE OF : 47 REPORT #: [id number] PHYSICIAN: OSWALD BURDEN MD PCP: FAITH GARZA MD REPORT IS CONFIDENTIAL AND NOT TO BE RELEASED WITHOUT AUTHORIZATION
== END 2024-12-12 11:35 | DRG 511 ==
LOC: ED 16:15 → MS 16:16
PROVIDERS: Emergency Medicine; Family Medicine; Internal Medicine; Specialist; Student in an Organized Health Care Education/Training Program; ADMIT Student in an Organized Health Care Education/Training Program; ATTEND Student in an Organized Health Care Education/Training Program
PROC: 0PSJ04Z Reposition Left Radius with Internal Fixation Device, Open Approach (ICD-10-PCS; principal; 2024-12-10 07:00)
DX: S52.502A Unspecified fracture of the lower end of left radius, initial encounter for closed fracture (principal); F03.93 Unspecified dementia, unspecified severity, with mood disturbance; G45.9 Transient cerebral ischemic attack, unspecified; S22.32XA Fracture of one rib, left side, initial encounter for closed fracture; N39.0 Urinary tract infection, site not specified; Z66 Do not resuscitate; W18.30XA Fall on same level, unspecified, initial encounter; I25.10 Atherosclerotic heart disease of native coronary artery without angina pectoris; I10 Essential (primary) hypertension; E78.00 Pure hypercholesterolemia, unspecified; Z88.2 Allergy status to sulfonamides; Z88.5 Allergy status to narcotic agent; M81.0 Age-related osteoporosis without current pathological fracture; K21.9 Gastro-esophageal reflux disease without esophagitis; G89.29 Other chronic pain; E03.9 Hypothyroidism, unspecified; G62.9 Polyneuropathy, unspecified; J44.9 Chronic obstructive pulmonary disease, unspecified; G25.81 Restless legs syndrome; R29.6 Repeated falls; N28.9 Disorder of kidney and ureter, unspecified; I48.91 Unspecified atrial fibrillation; L30.8 Other specified dermatitis; Z79.82 Long term (current) use of aspirin; Z79.890 Hormone replacement therapy; Z79.899 Other long term (current) drug therapy
CPT/HCPCS: 01830; 36415; 51798; 64417; 70496; 70498; 70551; 71045; 71046; 73100; 74018; 74177; 80048; 80053; 80061; 81001; 82140; 82306; 82607; 83036; 83735; 84439; 84443; 84484; 85025; 85610; 85651; 85730; 87088; 93005; 93010; 93306; 94640; 94667; 94668; 94760; 94762; 94799; 97116; 97162; 97166; 97530; 97535; A9270; C1713; G0378; J0690; J0696; J1100; J1171; J2002; J2003; J2405; J2704; J2795; J7030; J7121; P9612; Q9967

== ENCOUNTER 2025-02-13 07:31 | Emergency (ER) | payer MEDICARE, OTHER ==
[~2025-02-13] VITALS: Ht 154.9 cm; Wt 76.4 kg
[~2025-02-13 07:31] MED LIST changes: +ALENDRONATE SOD70 MG PO; +ATORVASTATIN CA40 MG PO; +GABAPENTIN300 MG PO; +INCRUSE ELLI62.5 MCG INH; +LIPITOR40 MG PO; +PLAVIX75 MG PO; +SYNTHROID125 MCG PO
[2025-02-13] MEDS ORDERED: SODIUM CHLORIDE 0.9% 1,000 ML IV ONE (07:45)
[2025-02-13] MEDS ORDERED: ondansetron HCL 4 MG TAB PO ONE (07:45)
[2025-02-13 07:59] LABS: BASOPHILS 0.5 % (0.1-1.2); EOSINOPHILS 2.6 % (0.7-5.8); HEMATOCRIT 32.2 % (34.1-44.9); HEMOGLOBIN 9.9 g/dL (11.2-15.7); LYMPHOCYTES 26.2 % (19.3-51.7); MCH 27.1 PG (25.6-32.2); MCHC 30.7 g/dL (32.2-35.5); MCV 88.2 fL (79.4-94.8); NEUTROPHILS 62.4 % (34.0-71.1); PLATELET COUNT 359 K/uL (182-369); RBC 3.65 M/uL (3.93-5.22)
[2025-02-13 08:15] LABS: ALBUMIN 3.1 g/dL (3.4-5.0); ALBUMIN/GLOBULIN RATIO 0.82 (1.1-2.4); ANION GAP 14.8 (7-21); BILIRUBIN, TOTAL 0.4 mg/dL (0.2-1.0); BUN/CREATININE RATIO 21.18 (6.0-28.6); CALCIUM 8.3 mg/dL (8.5-10.1); CREATININE, SERUM 1.18 mg/dL (0.55-1.02); POTASSIUM 3.8 mmol/L (3.5-5.1); PROTEIN, TOTAL 6.9 g/dL (6.4-8.2)
[2025-02-13] MEDS ORDERED: ONDANSETRON HCL4 MG PO (09:54)
[2025-02-13 10:05] VITALS: BP 131/59
--- NOTE | 2025-02-14 10:13 | EKG ---
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
== END 2025-02-13 10:09 | disposition home or self-care (01) ==
LOC: ED 07:31
PROVIDERS: Emergency Medicine
DX: R11.2 Nausea with vomiting, unspecified (principal); E03.9 Hypothyroidism, unspecified; J45.909 Unspecified asthma, uncomplicated; I10 Essential (primary) hypertension; K21.9 Gastro-esophageal reflux disease without esophagitis; Z79.82 Long term (current) use of aspirin; Z79.51 Long term (current) use of inhaled steroids; Z79.899 Other long term (current) drug therapy; Z79.02 Long term (current) use of antithrombotics/antiplatelets; Z88.2 Allergy status to sulfonamides; Z88.6 Allergy status to analgesic agent; Z88.5 Allergy status to narcotic agent; Z91.048 Other nonmedicinal substance allergy status
CPT/HCPCS: 36415; 80053; 83690; 85025; 93005; 93010; 99284; A9270

== ENCOUNTER 2025-03-13 07:53 | Day surgery (SDC) | payer MEDICARE, OTHER ==
[~2025-03-13] VITALS: Ht 154.9 cm; Wt 64.0 kg
[~2025-03-13 07:53] MED LIST changes: +CEFAZOLIN SODIUM 2 GM/20 ML SYR IV SCH; +IBLOOD GLUCOSE TEST STRIP 1 EA TEST VI PRN; +LACTATED RINGER'S 1,000 ML IV SCH; +LIDOCAINE HCL 1% 5 ML SDV INJ ONE; +ONDANSETRON HCL4 MG PO; +PRAMIPEXOLE D0.25 MG PO
[2025-03-13 08:13] VITALS: BP 96/77
[2025-03-13] MEDS ORDERED: HYDROCODONE/ACETA 5/325 TAB PO PRN (09:00)
[2025-03-13] MEDS ORDERED: fentaNYL citrate 100 MCG/2 ML VIAL ONE (10:06)
[2025-03-13] MEDS ORDERED: DEXAMETHASONE SOD PHOS 4 MG/ML VIAL ONE (10:42)
[2025-03-13] MEDS ORDERED: ACETAMINOPHEN 1,000 MG/100 ML VIAL ONE (10:43)
[2025-03-13] MEDS ORDERED: HYDROCODON-ACE1 EA10 PO (11:02)
[2025-03-13 11:35] VITALS: BP 144/60
--- NOTE | 2025-03-13 11:35 | NUR ---
PT ARRIVED BACK TO DS ON RA, AAOX3, ANSWERING QUESTIONS APPROPRAITELY, AND ABLE TO MAKE HER NEEDS KNOWN. VS TAKEN. IV SITE ASSESSED AND NOTED TO BE SL'D. REPORT RECEIVED FROM SANDBLAST CARVER. SURGICAL SITE VISUALIZED WITH SANDBLAST CARVER AND APPEARS CDI. ICE IN PLACE TO SURGICAL SITE. PT ABLE TO FEEL FINGER TIPS AND WIGGLE FINGER TIPS. PT DENIES PAIN OR NAUSEA WHEN ASKED. LUE ELEVATED AT HEART LEVEL. PT PROVIDED WITH PUDDING, ICE WATER, AND CRACKERS. PT REQUESTING TO BE FED D/T INABILITY TO USE L HAND AT THIS TIME. PT ASSISTED WITH EATING. PT TAKING PO FLUIDS WELL. BED IN LOW POSITION, WHEELS LOCKED, BILAT RAILS IN PLACE, AND CALL LIGHT WITHIN PT REACH. ALL QUESTIONS ANSWERED.
--- NOTE | 2025-03-13 12:12 | NUR ---
03/13/25 1212 Kayla Lance 1102- PT PRESENTS TO PACU, SEMI CHÁVEZ POSITION. LMA IN PLACE, BREATHING EVEN AND NON LABORED, O2 AT 6L PER MASK. LR INFUSING TO RFA IV. SPLINT TO LEFT WRIST, CDI. CAP REFILL NORMAL. PT NON REACTIVE TO STIMULUS. ALL MONITORS IN PLACE. SUCTION AT BEDSIDE. 1110- PT REMAINS NON REACTIVE TO STIMULUS, LMA IN PLACE. CONTINUE TO MONITOR. 1119- PT OPENS EYES, FOLLOWS COMMANDS TO REMOVE LMA. BREATHING EVEN AND NON LABORED. O2 LEFT IN PLACE. 1121- PT MOVED TO ROOM AIR, DUE TO ITCHING FROM MASK. TOLERATING WELL. DENIES PAIN AND NAUSEA. 1130- PT RESTING INTERMITTENTLY, WAKES EASILY TO VERBAL STIMULI. CMS INTACT TO LEFT HAND. 1135- PT TAKEN BACK TO DAY SURGERY, REPORT TO VICENTA LOW AT BEDSIDE. PT ANSWERING QUESTIONS, NO SIGNS OF DISTRESS. CARE OF PT TURNED OVER AT THIS TIME.
[2025-03-13 12:22] VITALS: BP 162/74
--- NOTE | 2025-03-13 12:35 | NUR ---
INTO PTS ROOM FOR ROUTINE REASSESSMENT. VS TAKEN. IV SITE ASSESSED. SURGICAL SITE VISUALIZED. DRSG REMAINS CDI. PT CONT TO DENY PAIN OR NAUSEA WHEN ASKED. PT HAS TOLERATED PO FOOD AND FLUIDS WELL. PT FEELS SHE COULD VOID NOW. ASSISTED PT TO EDGE OF BED AND THEN TO STANDING POSITION. PT DENIES ANY DIZZINESS OR LIGHTHEADEDNESS. PT ASSISTED WITH AMBULATION ACROSS PADILLA TO RESTROOM. PT ABLE TO VOID APPROX 350 ML OF PALE. CLR, YELLOW URINE. PT ASSISTED BACK TO ROOM AND ASSITED WITH PT DRESSING FOR DISCHARGE. PT ASSISTED IN LAYING DOWN, LUE ELEVATED, ICE IN PLACE. CALL LIGHT WITHIN PT REACH.
--- NOTE | 2025-03-13 12:40 | NUR ---
PTS NEPHEW WAS CALLED AND IS ON HIS WAY. INTO PTS ROOM FOR DC EDCUATION. PT GIVEN VERBAL AND WRITTEN DC EDUCATION, WELL F/U APPT, AND DR. DHILLON AFTER HOURS PHONE NUMBER. PT VERBALIZED UNDERSTANDING. ALL QUESTIONS WERE ANSWERED. PTS NEPHEW WAS PRESENT FOR DC EDUCATION WELL.
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
--- NOTE | 2025-03-15 09:44 | OR ---
[facility] [address] [place], [place] [address] Signed DATE OF OPERATION: 03/13/2025 SURGEON: Oswald Burden MD PREOPERATIVE DIAGNOSIS: Retained hardware, left wrist. POSTOPERATIVE DIAGNOSIS: Retained hardware, left wrist. PROCEDURE PERFORMED: Removal of hardware, deep. PROCESSES CHEMICAL DESIGN ENGINEER: None. ANESTHESIA: General. TOURNIQUET TIME: 15 minutes. BRIEF HISTORY: Maria Dolores is a 79-year-old female who had a comminuted distal radius fracture that underwent bridge plate placement. Risks and benefits of removal were discussed with her and she understood and wished to proceed. DESCRIPTION OF PROCEDURE: Once consent was obtained, she was taken to the operating room. After adequate anesthesia, she was left on the day surgery bed and hand table was brought in. A well-padded proximal arm tourniquet was placed. The arm was prepped and draped in a standard sterile fashion, exsanguinated using Esmarch bandage and tourniquet inflated to 200 mmHg. The two incisions for the insertion of the plate were then opened and carried down from the skin and subcutaneous tissue to the plates. The plates were cleared of soft tissue and the four screws proximally and four screws distally were removed. The plate was then removed through the distal incision with minimal difficulty. She had a very stiff wrist both flexion, extension, and deviation. The wounds were copiously irrigated with normal saline, closed with 3-0 Monocryl and sealed with LiquiBand and Steri-Strips. The wounds were dressed with Allevyn and she was placed in a radial gutter splint. She tolerated Electronically Signed By: OSWALD BURDEN MD 03/15/25 0944 PATIENT NAME: MARIA DOLORES ROMANO OPERATIVE REPORT DATE OF : 47 REPORT #: [id number] PHYSICIAN: OSWALD BURDEN MD PCP: FAITH GARZA MD REPORT IS CONFIDENTIAL AND NOT TO BE RELEASED WITHOUT AUTHORIZATION [facility] [address] [facility] [place], [place] [address] Signed the procedure well. All sponge, needle, and instrument counts were correct. Oswald Burden MD BA/FREDISL /[id number] Copies: ~ Electronically Signed By: OSWALD BURDEN MD 03/15/25 0944 PATIENT NAME: MARIA DOLORES ROMANO OPERATIVE REPORT DATE OF : 47 REPORT #: [id number] PHYSICIAN: OSWALD BURDEN MD PCP: FAITH GARZA MD REPORT IS CONFIDENTIAL AND NOT TO BE RELEASED WITHOUT AUTHORIZATION
== END 2025-03-13 12:55 | disposition home or self-care (01) ==
LOC: DS 07:53
PROVIDERS: ATTEND Specialist
PROC: 0PPJ04Z Removal of Internal Fixation Device from Left Radius, Open Approach (ICD-10-PCS; principal; 2025-03-13 10:25)
DX: T84.84XA Pain due to internal orthopedic prosthetic devices, implants and grafts, initial encounter (principal); Y79.8 Miscellaneous orthopedic devices associated with adverse incidents, not elsewhere classified; J44.9 Chronic obstructive pulmonary disease, unspecified; I10 Essential (primary) hypertension; E03.9 Hypothyroidism, unspecified; I48.91 Unspecified atrial fibrillation; K21.9 Gastro-esophageal reflux disease without esophagitis; Z88.2 Allergy status to sulfonamides; Z88.1 Allergy status to other antibiotic agents; Z88.5 Allergy status to narcotic agent; Z88.8 Allergy status to other drugs, medicaments and biological substances; Z79.899 Other long term (current) drug therapy
CPT/HCPCS: 01830; 87070; 87075; 87205; J0131; J0690; J1100; J2704; J3010; J7121

== ENCOUNTER 2025-05-27 13:45 | Emergency (ER) | payer MEDICARE, OTHER ==
[~2025-05-27] VITALS: Ht 154.9 cm; Wt 66.9 kg
[~2025-05-27 13:45] MED LIST changes: -CEFAZOLIN SODIUM 2 GM/20 ML SYR IV SCH; -IBLOOD GLUCOSE TEST STRIP 1 EA TEST VI PRN; -LACTATED RINGER'S 1,000 ML IV SCH; -LIDOCAINE HCL 1% 5 ML SDV INJ ONE
[2025-05-27] MEDS ORDERED: ACETAMINOPHEN 500 MG TAB PO ONE (14:15)
[2025-05-27 16:24] VITALS: BP 154/63
== END 2025-05-27 16:24 | disposition home or self-care (01) ==
LOC: ED 13:45
DX: S00.03XA Contusion of scalp, initial encounter (principal); E03.9 Hypothyroidism, unspecified; J45.909 Unspecified asthma, uncomplicated; I10 Essential (primary) hypertension; K21.9 Gastro-esophageal reflux disease without esophagitis; Z88.2 Allergy status to sulfonamides; Z91.018 Allergy to other foods; Z88.6 Allergy status to analgesic agent; Z88.1 Allergy status to other antibiotic agents; Z88.5 Allergy status to narcotic agent; Z88.8 Allergy status to other drugs, medicaments and biological substances; Z79.82 Long term (current) use of aspirin; Z79.51 Long term (current) use of inhaled steroids; Z79.890 Hormone replacement therapy; Z79.83 Long term (current) use of bisphosphonates; Z79.899 Other long term (current) drug therapy; W18.39XA Other fall on same level, initial encounter
CPT/HCPCS: 70450; 72125; 99284-25; A9270

== ENCOUNTER 2025-08-02 04:07 | Emergency (ER) | payer MEDICARE, OTHER ==
[~2025-08-02] VITALS: Ht 154.9 cm; Wt 66.3 kg
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
[2025-08-02] MEDS ORDERED: IBUPROFEN 800 MG TAB PO ONE (05:15)
[2025-08-02 06:14] LABS: BLOOD/HGB, URINE NEGATIVE (Negative); KETONE, URINE NEGATIVE (Negative); LEUK ESTERASE, URINE MODERATE (negative); NITRITE, URINE POSITIVE (negative)
[2025-08-02 06:29] LABS: BACTERIA, URINE 3+ /hpf (negative); CASTS, URINE NONE SEEN \\lpf; CRYSTALS, URINE NONE SEEN (0-1+); EPITHELIAL CELLS, URINE SQUAMOUS 1+ /lpf (0-1+); REFLEX CULTURE, URINE Yes (No)
[2025-08-02] MEDS ORDERED: CEPHALEXIN MONOHYDRATE 500 MG HOME.PACK PO ONE (06:45)
[2025-08-02] MEDS ORDERED: CEPHALEXIN500 M1 PO (06:46)
[2025-08-02 07:28] VITALS: BP 141/90
== END 2025-08-02 07:28 | disposition home or self-care (01) ==
LOC: ED 04:07
PROVIDERS: Internal Medicine
DX: S39.011A Strain of muscle, fascia and tendon of abdomen, initial encounter (principal); N39.0 Urinary tract infection, site not specified; K21.9 Gastro-esophageal reflux disease without esophagitis; E03.9 Hypothyroidism, unspecified; I10 Essential (primary) hypertension; J45.909 Unspecified asthma, uncomplicated; X58.XXXA Exposure to other specified factors, initial encounter; Z79.82 Long term (current) use of aspirin; Z79.899 Other long term (current) drug therapy; Z88.2 Allergy status to sulfonamides; Z88.6 Allergy status to analgesic agent; Z88.5 Allergy status to narcotic agent; Z88.1 Allergy status to other antibiotic agents; Z91.018 Allergy to other foods
CPT/HCPCS: 73502; 81001; 87077; 87088; 87186; 99284; A9270